=== PATIENT | female | born 1960 | race Caucasian/White ===

== ENCOUNTER → 2016-10-16 | Outpatient (CLI) | payer OTHER ==
[2015-02-01 10:44] VITALS: BP 128/77
[~2016-10-16] MED LIST: ALBU2.5V5 NEB; OMEP20CA9 PO; PROAIR HFA8.5 GM IH
== END | disposition home or self-care (01) ==
LOC: PF 09:32
PROVIDERS: ATTEND Otolaryngology
DX: J98.4 Other disorders of lung (principal)
CPT/HCPCS: 94060

== ENCOUNTER 2018-09-22 20:49 | Inpatient (IN) | payer OTHER ==
[~2018-09-22] VITALS: Ht 165.1 cm; Wt 49.5 kg
[2018-09-22 21:24] LABS: BASO % 1 % (0-3); EOS # 0.1 x10^3/uL (0.0-0.7); EOS % 1 % (0-3); HEMOGLOBIN 13.1 g/dL (12.0-15.5); LYMPH # 0.7 x10^3/uL (1.0-4.8); LYMPH % 11 % (24-48); MEAN CORPUSCULAR HEMOGLOBIN 31 pg (25-35); MEAN CORPUSCULAR HGB CONC 32 g/dL (31-37); MEAN CORPUSCULAR VOLUME 97 fL (79-100); MONO # 0.5 x10^3/uL (0.0-1.1); MONO % 7 % (0-9); NEUT # 5.1 x10^3uL (1.8-7.7); NEUT % 80 % (31-73); PLATELET COUNT 165 x10^3/uL (140-400); RED BLOOD COUNT 4.24 x10^6/uL (3.50-5.40); RED CELL DISTRIBUTION WIDTH 15.7 % (11.5-14.5); WHITE BLOOD COUNT 6.4 x10^3/uL (4.0-11.0)
[2018-09-22 21:42] LABS: PCO2 ABG 143 mmHg (35-46)
[2018-09-22 21:43] LABS: BASE EXCESS ABG 21 mmol/L (-3-3); FIO2 ABG 40; HCO3 ABG 56 mmol/L (21-28); PO2 ABG 54 mmHg (75-108); SAT O2 ABG 88 % (92-99)
[2018-09-22 21:44] LABS: CALCIUM 9.6 mg/dL (8.5-10.1); CREATININE 0.9 mg/dL (0.6-1.0); GFR 64.5; POTASSIUM 4.6 mmol/L (3.5-5.1)
[2018-09-22 21:55] LABS: ALBUMIN 3.8 g/dL (3.4-5.0); ALBUMIN/GLOBULIN RATIO 0.8 (1.0-1.7); TOTAL BILIRUBIN 0.6 mg/dL (0.2-1.0); TOTAL PROTEIN 8.4 g/dL (6.4-8.2)
[2018-09-22] MEDS ORDERED: ALBUTEROL SULFATE 2.5 MG/3 ML NEBU. CONT NEB ONE (22:00)
[2018-09-22] MEDS ORDERED: methylPREDNISolone SOD SUCC PF 125 MG/2 ML VIAL. IV ONE (22:00)
[2018-09-22] MEDS ORDERED: IPRATROPIUM BROMIDE 0.5 MG/2.5 ML NEBU. NEB ONE (22:00)
[2018-09-22] MEDS ORDERED: PROPOFOL 50 ML IV ONE (22:01)
[2018-09-22] MEDS ORDERED: VECURONIUM BOLUS 10 MG VIAL. IV ONE ×2 (22:07→22:45)
[2018-09-22] MEDS ORDERED: ETOMIDATE 20 MG/10 ML VIAL. IV ONE ×2 (22:07→22:45)
[2018-09-22 22:43] LABS: BILIRUBIN,URINE NEGATIVE (NEG); CLARITY,URINE CLEAR; COLOR,URINE YELLOW; NITRITE,URINE NEGATIVE (NEG); PROTEIN,URINE 30 mg/dL (NEG-TRACE); UROBILINOGEN,URINE 0.2 mg/dL (0.2 mg/dL)
[2018-09-22] MEDS ORDERED: PROPOFOL 100 ML IV PRN (22:45)
--- NOTE | 2018-09-22 22:48 | PHYS DOC ---
Past Medical History Past Medical History: Anxiety, COPD, Depression, GERD, Hypertension Past Surgical History: No Surgical History Additional Past Surgical Histo: UNABLE TO ASSESS Alcohol Use: Occasionally Drug Use: None Adult General Chief Complaint Chief Complaint: DYSPNEA/RESPIRATOY DISTRESS HPI HPI Patient is a 57-year-old female who presents with report of severe respiratory distress by EMS. Patient's O2 sat upon their arrival was 60% on room air. Patient arrived on nonrebreather mask with O2 sat of 97%. Patient was evaluated by your medical staff and blood work drawn an IV established. An ABG was obtained at this time and demonstrated markedly elevated PCO2 of greater than 140. Additional history is very limited due to patient's middle status. Review of Systems Review of Systems Constitutional: Denies fever [] Respiratory: Complains of cough and shortness of breath [] Cardiovascular: No additional information not addressed in HPI [] Neurologic: Positive mental status changes [] Unable to obtain full review of systems due to patient's mental status. Current Medications Current Medications Current Medications Medications (Trade) Dose Ordered Sig/Darling Start Time Stop Time Status Last Admin Dose Admin Albuterol Sulfate (Ventolin Neb Soln) 10 mg 1X ONCE 09/22/18 22:00 09/22/18 22:01 DC 09/22/18 21:36 10 MG Etomidate (Amidate) 20 mg STK-MED ONCE 09/22/18 22:07 09/22/18 22:08 DC Ipratropium [place] (Atrovent) 0.5 mg 1X ONCE 09/22/18 22:00 09/22/18 22:01 DC 09/22/18 21:36 0.5 MG Lorazepam (Ativan) 2 mg 1X ONCE 09/22/18 22:00 09/22/18 22:01 DC 09/22/18 21:38 2 MG Methylprednisolone Sodium Succinate (SOLU-Medrol 125MG VIAL) 125 mg 1X ONCE 09/22/18 22:00 09/22/18 22:01 DC 09/22/18 21:38 125 MG Propofol 50 ml @ As Directed STK-MED ONCE 09/22/18 22:01 09/22/18 22:03 DC Vecuronium [place] (Norcuron Bolus) 10 mg STK-MED ONCE 09/22/18 22:07 09/22/18 22:08 DC Allergies Allergies Allergies Coded Allergies Type Severity Reaction Last Updated Verified No Known Drug Allergies 02/01/15 No Physical Exam Physical Exam Constitutional: Patient in moderate respiratory distress distress, disoriented 3. [] HENT: Normocephalic, atraumatic, bilateral external ears normal, oropharynx dry , no oral exudates, nose normal. [] Eyes: PERRLA, EOMI, conjunctiva normal, no discharge. [] Neck: Normal range of motion, no tenderness, supple, no stridor. [] Cardiovascular: Tachycardic rate with regular rhythm[] Lungs & Thorax: Significant only reduced breath sounds are noted bilaterally with and Inspra 20 next 40 wheezes.[] Abdomen: Bowel sounds normal, soft, no tenderness, no masses, no pulsatile masses. [] Skin: Warm, dry, no erythema, no rash. [] Extremities: No tenderness, no cyanosis, no clubbing, ROM intact, no edema. [] Neurologic: Disoriented 3, no focal deficits noted. [] Current Patient Data Vital Signs Vital Signs Date Time Temp Pulse Resp B/P (MAP) Pulse Ox O2 Delivery O2 Flow Rate FiO2 09/22/18 22:05 93 Ventilator 09/22/18 20:50 97.7 98 20 99/72 (81) 4.0 97.7 Lab Values Laboratory Tests Test 09/22/18 21:10 09/22/18 21:16 White Blood Count 6.4 x10^3/uL (4.0-11.0) Red Blood Count 4.24 x10^6/uL (3.50-5.40) Hemoglobin 13.1 g/dL (12.0-15.5) Hematocrit 41.0 % (36.0-47.0) Mean Corpuscular Volume 97 fL (79-100) Mean Corpuscular Hemoglobin 31 pg (25-35) Mean Corpuscular Hemoglobin Concent 32 g/dL (31-37) Red Cell Distribution Width 15.7 % (11.5-14.5) H Platelet Count 165 x10^3/uL (140-400) Neutrophils (%) (Auto) 80 % (31-73) H Lymphocytes (%) (Auto) 11 % (24-48) L Monocytes (%) (Auto) 7 % (0-9) Eosinophils (%) (Auto) 1 % (0-3) Basophils (%) (Auto) 1 % (0-3) Neutrophils # (Auto) 5.1 x10^3uL (1.8-7.7) Lymphocytes # (Auto) 0.7 x10^3/uL (1.0-4.8) L Monocytes # (Auto) 0.5 x10^3/uL (0.0-1.1) Eosinophils # (Auto) 0.1 x10^3/uL (0.0-0.7) Basophils # (Auto) 0.0 x10^3/uL (0.0-0.2) Sodium Level 138 mmol/L (136-145) Potassium Level 4.6 mmol/L (3.5-5.1) Chloride Level 89 mmol/L (98-107) L Carbon Dioxide Level 44 mmol/L (21-32) H Anion Gap 5 (6-14) L Blood Urea Nitrogen 21 mg/dL (7-20) H Creatinine 0.9 mg/dL (0.6-1.0) Estimated GFR (Cockcroft-Gault) 64.5 BUN/Creatinine Ratio 23 (6-20) H Glucose Level 144 mg/dL (70-99) H Lactic Acid Level 3.6 mmol/L (0.4-2.0) H Calcium Level 9.6 mg/dL (8.5-10.1) Total Bilirubin 0.6 mg/dL (0.2-1.0) Aspartate Amino Transferase (AST) 21 U/L (15-37) Alanine Aminotransferase (ALT) 10 U/L (14-59) L Alkaline Phosphatase 79 U/L (46-116) Troponin I Quantitative < 0.017 ng/mL (0.000-0.055) ID-Azg-T-Type Natriuretic Peptide 393 pg/mL (0-124) H Total Protein 8.4 g/dL (6.4-8.2) H Albumin 3.8 g/dL (3.4-5.0) Albumin/Globulin Ratio 0.8 (1.0-1.7) L O2 Saturation 88 % (92-99) L Arterial Blood pH 7.21 (7.35-7.45) L Arterial Blood pCO2 at Patient Temp 143 mmHg (35-46) *H Arterial Blood pO2 at Patient Temp 54 mmHg (75-108) L Arterial Blood HCO3 56 mmol/L (21-28) H Arterial Blood Base Excess 21 mmol/L (-3-3) H FiO2 40 Laboratory Tests 09/22/18 21:10 Laboratory Tests 09/22/18 21:10 EKG EKG [] Radiology/Procedures Radiology/Procedures [] Impressions: Chest x-ray demonstrates findings consistent with COPD ET tube is in good position. Course & Med Decision Making Course & Med Decision Making Pertinent Labs and Imaging studies reviewed. (See chart for details) Patient moved to room upon arrival was evaluated by your medical staff after which blood work was drawn an IV established. An ABG was obtained at this time that demonstrated markedly elevated PCO2. At this point patient was initiated on BiPAP. Patient was maintained on BiPAP for approximately 30 minutes and patient was failing to improve. Patient's O2 sat was noted to be 77% on 100% of O2 while on BiPAP. At this point it was deemed necessary for intubation. Unable to obtain verbal consent from patient due to patient's mental status. Endotracheal Intubation by me: Pre assessment performed. See preceding note for details. Pre-oxygenation performed with 100% oxygen. Patient given IV etomidate 20 mg and IV vecuronium 10 mg prior to intubation. RSI: Performed w/o complication or hypoxic events. Medications as ordered. Blade: #3 glide scope ET Tube: 7.5 cm Depth: 22 cm at the lip Intubation confirmed by colorimetric CO2, equal breath sounds, quiet over the stomach. Chest X-ray 1V Interpreted by me: cm above the milagros ET tube. Normal soft tissue, No pneumothorax. A total of 40 minutes of critical care time was spent on this patient exclusive of separately billable procedures and was inclusive of direct [id number] patient care, ordering and reviewing of both laboratory and radiologic studies, discussion of patient's case with oracle distribution consultant, and finally on documentation of this patient's medical record. Dragon Disclaimer Dragon Disclaimer This electronic medical record was generated, in whole or in part, using a voice recognition dictation system. Departure Departure Impression: Primary Impression: Acute respiratory failure with hypercapnia Additional Impression: COPD with acute exacerbation Disposition: 09 ADMITTED INPATIENT Admitting Physician: Bernice Tavares, Other (Dr. Irma Nash) Condition: CRITICAL Referrals: KAUSHAL BROCK (PCP) Problem Qualifiers JUDSON NASH Jr. DO Sep 22, 2018 22:47
[2018-09-22 22:50] LABS: AMORPHOUS SEDIMENT,UR PRESENT /HPF; BACTERIA,URINE 0 /HPF (0-FEW); GRANULAR CASTS,URINE OCCASIONAL /HPF; SQUAMOUS EPITHELIAL CELL,UR FEW /LPF
[2018-09-22 22:54] LABS: INFLUENZA A PATIENT NEGATIVE (NEGATIVE); INFLUENZA B PATIENT NEGATIVE (NEGATIVE)
[2018-09-22 23:40] VITALS: BP 85/62
[2018-09-22 23:45] VITALS: BP 118/94
--- NOTE | 2018-09-22 23:56 | RAD ---
Indication:sob TECHNIQUE:Portable AP chest X-ray COMPARISON:02/01/2015 FINDINGS: Lungs are hyperinflated with flattening of diaphragm. Coarse interstitial opacities are seen. Heart is normal in size. No focal consolidation. No pneumothorax or pleural effusion. Visualized bony thorax is within normal limits. IMPRESSION: Findings of COPD with superimposed acute bronchitis. Electronically signed by: Matti Katz DO (09/22/2018 11:53 PM) [facility]
[2018-09-23] VITALS (30 sets, daily range): BP systolic 52–217; BP diastolic 31–149
[2018-09-23] MEDS ORDERED: OMEP40CA5 PO (01:13)
[2018-09-23] MEDS ORDERED: MIRT15TA3 PO (01:13)
[2018-09-23] MEDS ORDERED: METO-239 PO (01:13)
[2018-09-23] MEDS ORDERED: ESCITALOPRAM OXA5 M1 PO (01:13)
[2018-09-23] MEDS ORDERED: IV NORMAL SALINE 1000ML BAG 1,000 ML IV ONE ×2 (01:30)
[2018-09-23] MEDS: MIDAZOLAM 100mg/100ml NS BAG 100 ML IV PRN ×2 (01:38→17:47)
[2018-09-23] MEDS: ENOXAPARIN 30 MG/0.3 ML SYRINGE. SQ SCH ×2 (01:43→21:06)
[2018-09-23] MEDS ORDERED: IV NORMAL SALINE 250ML 250 ML IV ONE (01:45)
[2018-09-23] MEDS: IV NORMAL SALINE 1000ML BAG 1,000 ML IV SCH ×2 (03:09→12:49)
[2018-09-23] MEDS ORDERED: PIP/TAZO PER PHARMACY MC PRN (03:30)
[2018-09-23] MEDS ORDERED: VANCOMYCIN 1 GM in IV NORMAL SALINE 250ML 250 ML IV ONE (04:00)
[2018-09-23] MEDS ORDERED: IPRATRPIUM/ALBUTEROL 0.5/2.5MG 3 ML NEBU. NEB ONE (04:30)
[2018-09-23] MEDS: VANCOMYCIN PER PHARMACY MC PRN ×2 (05:15→10:33)
[2018-09-23] MEDS: PIPERACILLIN/TAZOBACTAM 2.25 GM in IV NORMAL SALINE 50ML 50 ML IV SCH ×3 (05:33→16:59)
--- NOTE | 2018-09-23 06:19 | EKG ---
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
[2018-09-23 07:36] LABS: BASO % 0 % (0-3); EOS % 0 % (0-3); HEMATOCRIT 32.9 % (36.0-47.0); HEMOGLOBIN 10.6 g/dL (12.0-15.5); LYMPH # 0.7 x10^3/uL (1.0-4.8); LYMPH % 16 % (24-48); MEAN CORPUSCULAR HEMOGLOBIN 31 pg (25-35); MEAN CORPUSCULAR HGB CONC 32 g/dL (31-37); MEAN CORPUSCULAR VOLUME 95 fL (79-100); MONO # 0.1 x10^3/uL (0.0-1.1); MONO % 3 % (0-9); NEUT # 3.4 x10^3uL (1.8-7.7); NEUT % 80 % (31-73); PLATELET COUNT 131 x10^3/uL (140-400); RED BLOOD COUNT 3.45 x10^6/uL (3.50-5.40); RED CELL DISTRIBUTION WIDTH 15.7 % (11.5-14.5); WHITE BLOOD COUNT 4.3 x10^3/uL (4.0-11.0)
[2018-09-23 07:45] LABS: CALCIUM 8.6 mg/dL (8.5-10.1); GFR 57.1; POTASSIUM 4.7 mmol/L (3.5-5.1)
--- NOTE | 2018-09-23 08:37 | PDOC1 ---
History and Physical Date of Admission Date of Admission DATE: 09/23/18 TIME: 08:31 Identification/Chief Complaint Chief Complaint Altered mental status Source Source: Caregiver, Chart review History of Present Illness History of Present Illness Pt is intubated and no family at bedside hence history mostly via chart. Patient is a 57 year old female who most likely is a heavy smoker, came in via EMS confused, low GCS, satting 60%, with little improvement on nonrebreather mask. ABG initially showed a CO2 of 250. Initially tried on BiPAP but not improving significantly hence intubated at emergency room I'm seeing at the ICU intubated on sedation, no family at bedside, repeat ABG this morning still shows a CO2 of 150. Chest x-ray shows COPD findings but no acute infiltrates As per staff, her clothes smelled of cigarettes Her BMI is only 13. There are no other records of her here Adeq UO on FC SOme relative hypotension, but MAP always > 60 Past Medical History Pulmonary: Bronchitis, COPD Past Surgical History Past Surgical History: Other (unknown surgical history) Family History Family History: Family History Unknown Social History Smoke: 2 packs per day ALCOHOL: none Drugs: None Current Problem List Problem List Problems Medical Problems: (1) Acute respiratory failure with hypercapnia Status: Acute (2) COPD with acute exacerbation Status: Acute Current Medications Current Medications Current Medications Methylprednisolone Sodium Succinate (SOLU-Medrol 125MG VIAL) 125 mg 1X ONCE IV Last administered on 09/22/18at 21:38; Start 09/22/18 at 22:00; Stop at 22:01; Status DC Albuterol Sulfate (Ventolin Neb Soln) 10 mg 1X ONCE CONT NEB Last administered on 09/22/18at 21:36; Start 09/22/18 at 22:00; Stop 09/22/18 at 22 :01; Status DC Ipratropium [place] (Atrovent) 0.5 mg 1X ONCE NEB Last administered on at 21:36; Start 09/22/18 at 22:00; Stop 09/22/18 at 22:01; Status DC Lorazepam (Ativan) 2 mg 1X ONCE IV Last administered on 09/22/18at 21:38; Start 09/22/18 at 22:00; Stop 09/22/18 at 22:01; Status DC Propofol 50 ml @ As Directed STK-MED ONCE IV ; Start 09/22/18 at 22:01; Stop 09/22/18 at 22:03; Status DC Etomidate (Amidate) 20 mg STK-MED ONCE IV ; Start 09/22/18 at 22:07; Stop 07/31 at 22:08; Status DC Vecuronium [place] (Norcuron Bolus) 10 mg STK-MED ONCE IV ; Start 09/22/18 at 22:07; Stop 09/22/18 at 22:08; Status DC Etomidate (Amidate) 20 mg 1X ONCE IV Last administered on 09/22/18at 22:05; Start 09/22/18 at 22:45; Stop 09/22/18 at 22:46; Status DC Vecuronium [place] (Norcuron Bolus) 10 mg 1X ONCE IV Last administered on 07/31at 22:05; Start 09/22/18 at 22:45; Stop 09/22/18 at 22:46; Status DC Propofol 100 ml @ 0 mls/hr CONT PRN IV SEE PROTOCOL Last administered on at 22:10; Start 09/22/18 at 22:45 Sodium Chloride 1,000 ml @ 1,000 mls/hr 1X ONCE IV Last administered on 09/23at 01:38; Start 09/23/18 at 01:30; Stop 09/23/18 at 02:29; Status DC Sodium Chloride 1,000 ml @ 1,000 mls/hr 1X ONCE IV Last administered on 09/23at 02:08; Start 09/23/18 at 01:30; Stop 09/23/18 at 02:29; Status DC Sodium Chloride 1,000 ml @ 150 mls/hr Q6H40M IV Last administered on at 03:09; Start 09/23/18 at 02:30 Enoxaparin Sodium (Lovenox Per Pharmacy Prophylaxis Dosing) 1 each PRN DAILY PRN MC SEE COMMENTS; Start 09/23/18 at 01:30; Stop 09/23/18 at 07:24; Status DC Midazolam HCl 100 ml @ 5 mls/hr CONT PRN IV SEE I/O RECORD Last administered on 09/23/18at 01:38; Start 09/23/18 at 01:30 Enoxaparin Sodium (Lovenox 30mg Syringe) 30 mg QHS SQ Last administered on 08/31at 01:43; Start 09/23/18 at 01:30 Sodium Chloride 250 ml @ 250 mls/hr 1X ONCE IV Last administered on at 00:30; Start 09/23/18 at 01:45; Stop 09/23/18 at 02:44; Status DC Piperacillin Sod/ Tazobactam Sod (Zosyn Per Pharmacy) 1 each PRN DAILY PRN MC SEE COMMENTS; Start 09/23/18 at 03:30; Stop 09/23/18 at 07:25; Status DC Vancomycin HCl (Vanco Per Pharmacy) 1 each PRN DAILY PRN MC SEE COMMENTS Last administered on 09/23/18at 05:15; Start 09/23/18 at 03:30 Vancomycin HCl 1 gm/Sodium Chloride 250 ml @ 250 mls/hr 1X ONCE IV Last administered on 09/23/18at 03:41; Start 09/23/18 at 04:00; Stop 09/23/18 at 04 :59; Status DC Piperacillin Sod/ Tazobactam Sod 2.25 gm/Sodium Chloride 50 ml @ 100 mls/hr Q6HRS IV Last administered on 09/23/18at 05:33; Start 09/23/18 at 05:00 Vancomycin HCl 500 mg/Dextrose 100 ml @ 100 mls/hr Q24H IV ; Start 09/24/18 at 04:00 Vancomycin HCl (Vancomycin Trough Level) 1 each 1X ONCE MC ; Start 09/25/18 at 03:30; Stop 09/25/18 at 03:31 Albuterol/ Ipratropium (Duoneb) 3 ml 1X ONCE NEB Last administered on at 04:20; Start 09/23/18 at 04:30; Stop 09/23/18 at 04:31; Status DC Pantoprazole Sodium (PROTONIX VIAL for IV PUSH) 40 mg DAILYAC IVP ; Start 09/23 at 07:30 Enoxaparin Sodium (Lovenox 40mg Syringe) 40 mg Q24H SQ ; Start 09/24/18 at 08: 00; Status Cancel Active Scripts Active Reported Mirtazapine 15 Mg Tablet 15 Mg PO DAILY Escitalopram Oxalate 5 Mg Tablet 5 Mg PO DAILY Metoprolol Succinate ( Xl ) (Metoprolol Succinate) 25 Mg Tab.er.24h 1 Tab PO DAILY Omeprazole 40 Mg Capsule. 40 Mg PO DAILY Albuterol Sulfate Neb Soln (Albuterol Sulfate) 2.5 Mg/3 Ml Vial.neb 2.5 Mg NEB PRN Proair Hfa Inhaler (Albuterol Sulfate) 8.5 Gm Hfa.aer.ad 2 Puff IH PRN Q4-6HRS PRN Omeprazole 20 Mg Capsule. 1 Cap PO DAILY Allergies Allergies: Coded Allergies: No Known Drug Allergies (Unverified , 02/01/15) ROS Review of System Intubated sedated Physical Exam General: No acute distress, Other (undernourished, minimal subcutaneous tissue , BMI of 13) Lungs: Normal air movement, Other (symmettrical chest expansion, equal air entry, no crackles) Heart: S1S2 Cardiovascular: S1 Breasts: Normal Abdomen: Normal bowel sounds, Soft, No tenderness, No hepatosplenomegaly, No masses Rectal Exam: not examined PELVIC: Nml ext genitalia Extremities: No clubbing, No cyanosis, No edema, Normal pulses, No tenderness/ swelling Skin: No rashes, No breakdown, No significant lesion Neuro: Normal gait, Normal speech, Strength at 5/5 X4 ext, Normal tone, Sensation intact, Cranial nerves 3-12 NL, Reflexes 2+ Psych/Mental Status: Mental status NL, Mood NL Vitals Vitals Vital Signs Date Time Temp Pulse Resp B/P (MAP) Pulse Ox O2 Delivery O2 Flow Rate FiO2 09/23/18 07:20 100 Ventilator 09/23/18 06:00 100.3 108 23 92/57 (69) 100.3 09/22/18 20:50 4.0 Labs Labs Laboratory Tests Test 09/22/18 21:10 09/22/18 21:16 09/22/18 21:50 09/22/18 22:35 White Blood Count 6.4 x10^3/uL (4.0-11.0) Red Blood Count 4.24 x10^6/uL (3.50-5.40) Hemoglobin 13.1 g/dL (12.0-15.5) Hematocrit 41.0 % (36.0-47.0) Mean Corpuscular Volume 97 fL (79-100) Mean Corpuscular Hemoglobin 31 pg (25-35) Mean Corpuscular Hemoglobin Concent 32 g/dL (31-37) Red Cell Distribution Width 15.7 % (11.5-14.5) Platelet Count 165 x10^3/uL (140-400) Neutrophils (%) (Auto) 80 % (31-73) Lymphocytes (%) (Auto) 11 % (24-48) Monocytes (%) (Auto) 7 % (0-9) Eosinophils (%) (Auto) 1 % (0-3) Basophils (%) (Auto) 1 % (0-3) Neutrophils # (Auto) 5.1 x10^3uL (1.8-7.7) Lymphocytes # (Auto) 0.7 x10^3/uL (1.0-4.8) Monocytes # (Auto) 0.5 x10^3/uL (0.0-1.1) Eosinophils # (Auto) 0.1 x10^3/uL (0.0-0.7) Basophils # (Auto) 0.0 x10^3/uL (0.0-0.2) Sodium Level 138 mmol/L (136-145) Potassium Level 4.6 mmol/L (3.5-5.1) Chloride Level 89 mmol/L (98-107) Carbon Dioxide Level 44 mmol/L (21-32) Anion Gap 5 (6-14) Blood Urea Nitrogen 21 mg/dL (7-20) Creatinine 0.9 mg/dL (0.6-1.0) Estimated GFR (Cockcroft-Gault) 64.5 BUN/Creatinine Ratio 23 (6-20) Glucose Level 144 mg/dL (70-99) Lactic Acid Level 3.6 mmol/L (0.4-2.0) Calcium Level 9.6 mg/dL (8.5-10.1) Total Bilirubin 0.6 mg/dL (0.2-1.0) Aspartate Amino Transf (AST/SGOT) 21 U/L (15-37) Alanine Aminotransferase (ALT/SGPT) 10 U/L (14-59) Alkaline Phosphatase 79 U/L (46-116) Troponin I Quantitative < 0.017 ng/mL (0.000-0.055) AG-Mzn-B-Type Natriuretic Peptide 393 pg/mL (0-124) Total Protein 8.4 g/dL (6.4-8.2) Albumin 3.8 g/dL (3.4-5.0) Albumin/Globulin Ratio 0.8 (1.0-1.7) O2 Saturation 88 % (92-99) Arterial Blood pH 7.21 (7.35-7.45) Arterial Blood pCO2 at Patient Temp 143 mmHg (35-46) Arterial Blood pO2 at Patient Temp 54 mmHg (75-108) Arterial Blood HCO3 56 mmol/L (21-28) Arterial Blood Base Excess 21 mmol/L (-3-3) FiO2 40 Influenza Type A Antigen Negative (NEGATIVE) Influenza Type B Antigen Negative (NEGATIVE) Urine Collection Type Unknown Urine Color Yellow Urine Clarity Clear Urine pH 6.0 Urine Specific [place] 1.015 Urine Protein 30 mg/dL (NEG-TRACE) Urine Glucose (UA) Negative mg/dL (NEG) Urine Ketones (Stick) 40 mg/dL (NEG) Urine Blood Negative (NEG) Urine Nitrite Negative (NEG) Urine Bilirubin Negative (NEG) Urine Urobilinogen Dipstick 0.2 mg/dL (0.2 mg/dL) Urine Leukocyte Esterase Negative (NEG) Urine RBC 3-5 /HPF (0-2) Urine WBC 1-4 /HPF (0-4) Urine Squamous Epithelial Cells Few /LPF Urine Amorphous Sediment Present /HPF Urine Bacteria 0 /HPF (0-FEW) Urine Granular Casts Occasional /HPF Urine Mucus Slight /LPF Test 09/23/18 01:40 09/23/18 06:27 Lactic Acid Level 5.0 mmol/L (0.4-2.0) 3.0 mmol/L (0.4-2.0) White Blood Count 4.3 x10^3/uL (4.0-11.0) Red Blood Count 3.45 x10^6/uL (3.50-5.40) Hemoglobin 10.6 g/dL (12.0-15.5) Hematocrit 32.9 % (36.0-47.0) Mean Corpuscular Volume 95 fL (79-100) Mean Corpuscular Hemoglobin 31 pg (25-35) Mean Corpuscular Hemoglobin Concent 32 g/dL (31-37) Red Cell Distribution Width 15.7 % (11.5-14.5) Platelet Count 131 x10^3/uL (140-400) Neutrophils (%) (Auto) 80 % (31-73) Lymphocytes (%) (Auto) 16 % (24-48) Monocytes (%) (Auto) 3 % (0-9) Eosinophils (%) (Auto) 0 % (0-3) Basophils (%) (Auto) 0 % (0-3) Neutrophils # (Auto) 3.4 x10^3uL (1.8-7.7) Lymphocytes # (Auto) 0.7 x10^3/uL (1.0-4.8) Monocytes # (Auto) 0.1 x10^3/uL (0.0-1.1) Eosinophils # (Auto) 0.0 x10^3/uL (0.0-0.7) Basophils # (Auto) 0.0 x10^3/uL (0.0-0.2) Sodium Level 140 mmol/L (136-145) Potassium Level 4.7 mmol/L (3.5-5.1) Chloride Level 94 mmol/L (98-107) Carbon Dioxide Level 33 mmol/L (21-32) Anion Gap 13 (6-14) Blood Urea Nitrogen 25 mg/dL (7-20) Creatinine 1.0 mg/dL (0.6-1.0) Estimated GFR (Cockcroft-Gault) 57.1 Glucose Level 121 mg/dL (70-99) Calcium Level 8.6 mg/dL (8.5-10.1) Laboratory Tests Test 09/22/18 21:10 09/22/18 21:16 09/22/18 21:50 09/22/18 22:35 White Blood Count 6.4 x10^3/uL (4.0-11.0) Red Blood Count 4.24 x10^6/uL (3.50-5.40) Hemoglobin 13.1 g/dL (12.0-15.5) Hematocrit 41.0 % (36.0-47.0) Mean Corpuscular Volume 97 fL (79-100) Mean Corpuscular Hemoglobin 31 pg (25-35) Mean Corpuscular Hemoglobin Concent 32 g/dL (31-37) Red Cell Distribution Width 15.7 % (11.5-14.5) Platelet Count 165 x10^3/uL (140-400) Neutrophils (%) (Auto) 80 % (31-73) Lymphocytes (%) (Auto) 11 % (24-48) Monocytes (%) (Auto) 7 % (0-9) Eosinophils (%) (Auto) 1 % (0-3) Basophils (%) (Auto) 1 % (0-3) Neutrophils # (Auto) 5.1 x10^3uL (1.8-7.7) Lymphocytes # (Auto) 0.7 x10^3/uL (1.0-4.8) Monocytes # (Auto) 0.5 x10^3/uL (0.0-1.1) Eosinophils # (Auto) 0.1 x10^3/uL (0.0-0.7) Basophils # (Auto) 0.0 x10^3/uL (0.0-0.2) Sodium Level 138 mmol/L (136-145) Potassium Level 4.6 mmol/L (3.5-5.1) Chloride Level 89 mmol/L (98-107) Carbon Dioxide Level 44 mmol/L (21-32) Anion Gap 5 (6-14) Blood Urea Nitrogen 21 mg/dL (7-20) Creatinine 0.9 mg/dL (0.6-1.0) Estimated GFR (Cockcroft-Gault) 64.5 BUN/Creatinine Ratio 23 (6-20) Glucose Level 144 mg/dL (70-99) Lactic Acid Level 3.6 mmol/L (0.4-2.0) Calcium Level 9.6 mg/dL (8.5-10.1) Total Bilirubin 0.6 mg/dL (0.2-1.0) Aspartate Amino Transf (AST/SGOT) 21 U/L (15-37) Alanine Aminotransferase (ALT/SGPT) 10 U/L (14-59) Alkaline Phosphatase 79 U/L (46-116) Troponin I Quantitative < 0.017 ng/mL (0.000-0.055) AT-Vbz-I-Type Natriuretic Peptide 393 pg/mL (0-124) Total Protein 8.4 g/dL (6.4-8.2) Albumin 3.8 g/dL (3.4-5.0) Albumin/Globulin Ratio 0.8 (1.0-1.7) O2 Saturation 88 % (92-99) Arterial Blood pH 7.21 (7.35-7.45) Arterial Blood pCO2 at Patient Temp 143 mmHg (35-46) Arterial Blood pO2 at Patient Temp 54 mmHg (75-108) Arterial Blood HCO3 56 mmol/L (21-28) Arterial Blood Base Excess 21 mmol/L (-3-3) FiO2 40 Influenza Type A Antigen Negative (NEGATIVE) Influenza Type B Antigen Negative (NEGATIVE) Urine Collection Type Unknown Urine Color Yellow Urine Clarity Clear Urine pH 6.0 Urine Specific [place] 1.015 Urine Protein 30 mg/dL (NEG-TRACE) Urine Glucose (UA) Negative mg/dL (NEG) Urine Ketones (Stick) 40 mg/dL (NEG) Urine Blood Negative (NEG) Urine Nitrite Negative (NEG) Urine Bilirubin Negative (NEG) Urine Urobilinogen Dipstick 0.2 mg/dL (0.2 mg/dL) Urine Leukocyte Esterase Negative (NEG) Urine RBC 3-5 /HPF (0-2) Urine WBC 1-4 /HPF (0-4) Urine Squamous Epithelial Cells Few /LPF Urine Amorphous Sediment Present /HPF Urine Bacteria 0 /HPF (0-FEW) Urine Granular Casts Occasional /HPF Urine Mucus Slight /LPF Test 09/23/18 01:40 09/23/18 06:27 Lactic Acid Level 5.0 mmol/L (0.4-2.0) 3.0 mmol/L (0.4-2.0) White Blood Count 4.3 x10^3/uL (4.0-11.0) Red Blood Count 3.45 x10^6/uL (3.50-5.40) Hemoglobin 10.6 g/dL (12.0-15.5) Hematocrit 32.9 % (36.0-47.0) Mean Corpuscular Volume 95 fL (79-100) Mean Corpuscular Hemoglobin 31 pg (25-35) Mean Corpuscular Hemoglobin Concent 32 g/dL (31-37) Red Cell Distribution Width 15.7 % (11.5-14.5) Platelet Count 131 x10^3/uL (140-400) Neutrophils (%) (Auto) 80 % (31-73) Lymphocytes (%) (Auto) 16 % (24-48) Monocytes (%) (Auto) 3 % (0-9) Eosinophils (%) (Auto) 0 % (0-3) Basophils (%) (Auto) 0 % (0-3) Neutrophils # (Auto) 3.4 x10^3uL (1.8-7.7) Lymphocytes # (Auto) 0.7 x10^3/uL (1.0-4.8) Monocytes # (Auto) 0.1 x10^3/uL (0.0-1.1) Eosinophils # (Auto) 0.0 x10^3/uL (0.0-0.7) Basophils # (Auto) 0.0 x10^3/uL (0.0-0.2) Sodium Level 140 mmol/L (136-145) Potassium Level 4.7 mmol/L (3.5-5.1) Chloride Level 94 mmol/L (98-107) Carbon Dioxide Level 33 mmol/L (21-32) Anion Gap 13 (6-14) Blood Urea Nitrogen 25 mg/dL (7-20) Creatinine 1.0 mg/dL (0.6-1.0) Estimated GFR (Cockcroft-Gault) 57.1 Glucose Level 121 mg/dL (70-99) Calcium Level 8.6 mg/dL (8.5-10.1) VTE Prophylaxis Ordered VTE Prophylaxis Devices: Yes VTE Pharmacological Prophylaxi: Yes Assessment/Plan Assessment/Plan Severe hypercapnic/hypoxic respiratory failure, failed an IPPV hence on IPPV Heavy smoker Undernourished, possibly cachexia even BMI 13 Temperatures, sepsis with no organ dysfunction Plan: Vent bundle, ICU care, pulmonary consult DVT and PPI ppx Tube feeds per nutrition-not ready to be extubated because of high CO2 hence we' ll start tube feeds Started on empiric Zosyn by ER, low-grade temperatures I did consult ID regarding this Discussed with [employer] Overnight physician ordered a CT chest and CT head cc 35 minutes ROLY EDMOND MD Sep 23, 2018 08:37
--- NOTE | 2018-09-23 08:50 | PDOC ---
Infectious Disease Note Subjective: Subjective Pt seen and examined Vital Signs: Vital Signs Vital Signs Date Time Temp Pulse Resp B/P (MAP) Pulse Ox O2 Delivery O2 Flow Rate FiO2 09/23/18 07:20 100 Ventilator 09/23/18 06:00 100.3 108 23 92/57 (69) 100.3 09/22/18 20:50 4.0 Medications: Inpatient Meds: Current Medications Medications (Trade) Dose Ordered Sig/Darling Start Time Stop Time Status Last Admin Dose Admin Albuterol Sulfate (Ventolin Neb Soln) 10 mg 1X ONCE 09/22/18 22:00 09/22/18 22:01 DC 09/22/18 21:36 10 MG Albuterol/ Ipratropium (Duoneb) 3 ml 1X ONCE 09/23/18 04:30 09/23/18 04:31 DC 09/23/18 04:20 3 ML Enoxaparin Sodium (Lovenox 30mg Syringe) 30 mg QHS 09/23/18 01:30 09/23/18 01:43 30 MG Enoxaparin Sodium (Lovenox 40mg Syringe) 40 mg Q24H 09/24/18 08:00 Cancel Enoxaparin Sodium (Lovenox Per Pharmacy Prophylaxis Dosing) 1 each PRN DAILY PRN 09/23/18 01:30 09/23/18 07:24 DC Etomidate (Amidate) 20 mg 1X ONCE 09/22/18 22:45 09/22/18 22:46 DC 09/22/18 22:05 20 MG Ipratropium Ferris (Atrovent) 0.5 mg 1X ONCE 09/22/18 22:00 09/22/18 22:01 DC 09/22/18 21:36 0.5 MG Lorazepam (Ativan) 2 mg 1X ONCE 09/22/18 22:00 09/22/18 22:01 DC 09/22/18 21:38 2 MG Methylprednisolone Sodium Succinate (SOLU-Medrol 125MG VIAL) 125 mg 1X ONCE 09/22/18 22:00 09/22/18 22:01 DC 09/22/18 21:38 125 MG Midazolam HCl 100 ml @ 5 mls/hr CONT PRN 09/23/18 01:30 09/23/18 01:38 5 MLS/HR Pantoprazole Sodium (PROTONIX VIAL for IV PUSH) 40 mg DAILYAC 09/23/18 07:30 Piperacillin Sod/ Tazobactam Sod (Zosyn Per Pharmacy) 1 each PRN DAILY PRN 09/23/18 03:30 09/23/18 07:25 DC Piperacillin Sod/ Tazobactam Sod 2.25 gm/Sodium Chloride 50 ml @ 100 mls/hr Q6HRS 09/23/18 05:00 09/23/18 05:33 100 MLS/HR Propofol 100 ml @ 0 mls/hr CONT PRN 09/22/18 22:45 09/22/18 22:10 0.6 MLS/HR Sodium Chloride 250 ml @ 250 mls/hr 1X ONCE 09/23/18 01:45 09/23/18 02:44 DC 09/23/18 00:30 250 MLS/HR Vancomycin HCl (Vanco Per Pharmacy) 1 each PRN DAILY PRN 09/23/18 03:30 09/23/18 05:15 1 EACH Vancomycin HCl (Vancomycin Trough Level) 1 each 1X ONCE 09/25/18 03:30 09/25/18 03:31 Vancomycin HCl 500 mg/Dextrose 100 ml @ 100 mls/hr Q24H 09/24/18 04:00 Vancomycin HCl 1 gm/Sodium Chloride 250 ml @ 250 mls/hr 1X ONCE 09/23/18 04:00 09/23/18 04:59 DC 09/23/18 03:41 250 MLS/HR Vecuronium Ferris (Norcuron Bolus) 10 mg 1X ONCE 09/22/18 22:45 09/22/18 22:46 DC 09/22/18 22:05 10 MG Labs: Lab Laboratory Tests Test 09/22/18 21:10 09/22/18 21:16 09/22/18 21:50 09/22/18 22:35 White Blood Count 6.4 x10^3/uL (4.0-11.0) Red Blood Count 4.24 x10^6/uL (3.50-5.40) Hemoglobin 13.1 g/dL (12.0-15.5) Hematocrit 41.0 % (36.0-47.0) Mean Corpuscular Volume 97 fL (79-100) Mean Corpuscular Hemoglobin 31 pg (25-35) Mean Corpuscular Hemoglobin Concent 32 g/dL (31-37) Red Cell Distribution Width 15.7 % (11.5-14.5) Platelet Count 165 x10^3/uL (140-400) Neutrophils (%) (Auto) 80 % (31-73) Lymphocytes (%) (Auto) 11 % (24-48) Monocytes (%) (Auto) 7 % (0-9) Eosinophils (%) (Auto) 1 % (0-3) Basophils (%) (Auto) 1 % (0-3) Neutrophils # (Auto) 5.1 x10^3uL (1.8-7.7) Lymphocytes # (Auto) 0.7 x10^3/uL (1.0-4.8) Monocytes # (Auto) 0.5 x10^3/uL (0.0-1.1) Eosinophils # (Auto) 0.1 x10^3/uL (0.0-0.7) Basophils # (Auto) 0.0 x10^3/uL (0.0-0.2) Sodium Level 138 mmol/L (136-145) Potassium Level 4.6 mmol/L (3.5-5.1) Chloride Level 89 mmol/L (98-107) Carbon Dioxide Level 44 mmol/L (21-32) Anion Gap 5 (6-14) Blood Urea Nitrogen 21 mg/dL (7-20) Creatinine 0.9 mg/dL (0.6-1.0) Estimated GFR (Cockcroft-Gault) 64.5 BUN/Creatinine Ratio 23 (6-20) Glucose Level 144 mg/dL (70-99) Lactic Acid Level 3.6 mmol/L (0.4-2.0) Calcium Level 9.6 mg/dL (8.5-10.1) Total Bilirubin 0.6 mg/dL (0.2-1.0) Aspartate Amino Transf (AST/SGOT) 21 U/L (15-37) Alanine Aminotransferase (ALT/SGPT) 10 U/L (14-59) Alkaline Phosphatase 79 U/L (46-116) Troponin I Quantitative < 0.017 ng/mL (0.000-0.055) DW-Ghj-A-Type Natriuretic Peptide 393 pg/mL (0-124) Total Protein 8.4 g/dL (6.4-8.2) Albumin 3.8 g/dL (3.4-5.0) Albumin/Globulin Ratio 0.8 (1.0-1.7) O2 Saturation 88 % (92-99) Arterial Blood pH 7.21 (7.35-7.45) Arterial Blood pCO2 at Patient Temp 143 mmHg (35-46) Arterial Blood pO2 at Patient Temp 54 mmHg (75-108) Arterial Blood HCO3 56 mmol/L (21-28) Arterial Blood Base Excess 21 mmol/L (-3-3) FiO2 40 Influenza Type A Antigen Negative (NEGATIVE) Influenza Type B Antigen Negative (NEGATIVE) Urine Collection Type Unknown Urine Color Yellow Urine Clarity Clear Urine pH 6.0 Urine Specific Cotter 1.015 Urine Protein 30 mg/dL (NEG-TRACE) Urine Glucose (UA) Negative mg/dL (NEG) Urine Ketones (Stick) 40 mg/dL (NEG) Urine Blood Negative (NEG) Urine Nitrite Negative (NEG) Urine Bilirubin Negative (NEG) Urine Urobilinogen Dipstick 0.2 mg/dL (0.2 mg/dL) Urine Leukocyte Esterase Negative (NEG) Urine RBC 3-5 /HPF (0-2) Urine WBC 1-4 /HPF (0-4) Urine Squamous Epithelial Cells Few /LPF Urine Amorphous Sediment Present /HPF Urine Bacteria 0 /HPF (0-FEW) Urine Granular Casts Occasional /HPF Urine Mucus Slight /LPF Test 09/23/18 01:40 09/23/18 06:27 Lactic Acid Level 5.0 mmol/L (0.4-2.0) 3.0 mmol/L (0.4-2.0) White Blood Count 4.3 x10^3/uL (4.0-11.0) Red Blood Count 3.45 x10^6/uL (3.50-5.40) Hemoglobin 10.6 g/dL (12.0-15.5) Hematocrit 32.9 % (36.0-47.0) Mean Corpuscular Volume 95 fL (79-100) Mean Corpuscular Hemoglobin 31 pg (25-35) Mean Corpuscular Hemoglobin Concent 32 g/dL (31-37) Red Cell Distribution Width 15.7 % (11.5-14.5) Platelet Count 131 x10^3/uL (140-400) Neutrophils (%) (Auto) 80 % (31-73) Lymphocytes (%) (Auto) 16 % (24-48) Monocytes (%) (Auto) 3 % (0-9) Eosinophils (%) (Auto) 0 % (0-3) Basophils (%) (Auto) 0 % (0-3) Neutrophils # (Auto) 3.4 x10^3uL (1.8-7.7) Lymphocytes # (Auto) 0.7 x10^3/uL (1.0-4.8) Monocytes # (Auto) 0.1 x10^3/uL (0.0-1.1) Eosinophils # (Auto) 0.0 x10^3/uL (0.0-0.7) Basophils # (Auto) 0.0 x10^3/uL (0.0-0.2) Sodium Level 140 mmol/L (136-145) Potassium Level 4.7 mmol/L (3.5-5.1) Chloride Level 94 mmol/L (98-107) Carbon Dioxide Level 33 mmol/L (21-32) Anion Gap 13 (6-14) Blood Urea Nitrogen 25 mg/dL (7-20) Creatinine 1.0 mg/dL (0.6-1.0) Estimated GFR (Cockcroft-Gault) 57.1 Glucose Level 121 mg/dL (70-99) Calcium Level 8.6 mg/dL (8.5-10.1) Objective: Assessment: Fever Acute resp failure s/p intubation Anemia/thrombocytopenia Plan: Plan of Care cont vanc/zosyn rvp not available at this hosp empiric tamiflu cont supportive care [phone] Thank you EMPERATRIZ FOWLER MD Sep 23, 2018 08:50
--- NOTE | 2018-09-23 08:57 | RAD ---
PORTABLE CHEST 1V Clinical Indication: chest pain x tonight Comparison: AP chest, same day 6 hours Findings: Endotracheal tube tip is just the level of the aortic arch. Enteric tube courses into the stomach. Cardiac size is normal. Lungs are hyperexpanded, unchanged. No focal airspace disease. Coarse interstitial markings. No pneumothorax or pleural effusion. IMPRESSION: 1. Life support devices in appropriate position. 2. COPD. Electronically signed by: Franco Diaz MD (09/23/2018 8:53 AM) [id number]
[2018-09-23] MEDS ORDERED: OSELTAMIVIR 30 MG/5 ML ORAL.SUSP. NG SCH (09:00)
--- NOTE | 2018-09-23 09:26 | RAD ---
PQRS Compliance Statement: One or more of the following individualized dose reduction techniques were utilized for this examination: 1. Automated exposure control 2. Adjustment of the mA and/or kV according to patient size 3. Use of iterative reconstruction technique CT HEAD WITHOUT CONTRAST History: AMS Comparison: None. Procedure: Axial images are obtained of the head from the skull base through the vertex without IV contrast. Findings: There is hypoattenuation in the bilateral inferior frontal lobes, significantly more extensive on the left than on the right. There is no appreciable volume loss. The ventricles and sulci are normal for the patient's age. No mass-effect, midline shift, acute hemorrhage, extra-axial fluid collection is identified. Basilar cisterns are patent. Bone windows demonstrate no acute calvarial abnormality. The visualized paranasal sinuses are clear. Bilateral mastoid air cells are mostly opacified bilaterally. IMPRESSION: There is bilateral inferior frontal lobe hypoattenuation, left worse than right. There is no appreciable volume loss. Considerations include subacute contusion or infarct or nonspecific cerebral edema. If diagnosis is not known recommend MR brain for further evaluation. Electronically signed by: Franco Diaz MD (09/23/2018 9:22 AM) [id number]
--- NOTE | 2018-09-23 10:00 | CONS ---
DATE OF CONSULTATION: 09/23/2018 REFERRING PHYSICIAN: Dr. Tavares. REASON FOR CONSULTATION: Fever. HISTORY OF PRESENT ILLNESS: A 57-year-old female brought in by EMS to [facility] ER for severe respiratory distress. Upon arrival, the patient was found to be hypoxic on room air. The patient was placed on nonrebreather with oxygen saturation going up to 97%. ABG showed elevated pCO2 of greater than 140. The patient had altered mental status, was intubated. The patient required IV fluid bolus, also was given Solu-Medrol 125 mg x 1. Chest x-ray was done, which showed changes of COPD with bronchitis. The patient was given empiric vancomycin and Zosyn. Blood cultures were done. MRSA PCR was done. The patient was admitted to ICU. The patient required further IV bolus earlier this morning. The patient was febrile at 101 in the ER. Currently, temperature is 100.3. Her blood pressure is running around 92/57. She is awaiting a CT of the chest. The patient was found on the floor by her relatives who were visiting her yesterday and was disoriented. White count was 6.4, this morning is 4.3; hemoglobin of 10.6; platelets of 131. Lactate was high at 5.0, this morning is 3.0. PCO2 last night was around 143. D-dimer is 1.29. UA negative. Influenza screen negative. PAST MEDICAL HISTORY: Bronchitis, COPD. PAST SURGICAL HISTORY: Not known. FAMILY HISTORY: Not known. SOCIAL HISTORY: Smoker. No ETOH, no drug use. Lives at home. CURRENT MEDICATIONS: Methylprednisolone one time, IV vancomycin p.r.n., Zosyn, albuterol, pantoprazole, enoxaparin, vecuronium, propofol, midazolam p.r.n. ALLERGIES: No known drug allergies. REVIEW OF SYSTEMS: Intubated and sedated. PHYSICAL EXAMINATION: VITAL SIGNS: Temperature 100.3, T-max 101.6, pulse 108, respiratory rate 23, blood pressure 92/57, ventilated, FiO2 100%. GENERAL: A thin, cachectic, intubated female. HEENT: OG tube in place, intubated, no icterus. Pupils equal, reactive. No thrush. NECK: Supple. LUNGS: Decreased breath sounds at bases, otherwise clear. HEART: S1, S2, tachycardia. ABDOMEN: Soft, nontender, nondistended, no rebound, no grimacing on deep palpation. EXTREMITIES: No edema, no cyanosis, no clubbing. NEUROLOGIC: Moves all four extremities on deep palpation. PSYCHIATRIC: Intubated and sedated. DERMATOLOGIC: Warm, dry, no generalized rash. LABORATORY DATA: WBC 4.3, hemoglobin 10.6, hematocrit 32.9, platelets 131, lymphocyte 16, neutrophil 80. Sodium 140, potassium 4.7, chloride 94, bicarbonate 33, BUN 25, creatinine 1.0. Lactate 5.0, repeat 3.0. BNP 393. LFTs within normal limits. Albumin 3.8. Troponin less than 0.017. Influenza screen negative. UA negative. CHEST X-RAY: COPD with superimposed bronchitis. IMPRESSION: 1. Fevers. Etiology respiratory, cannot rule out viral infection, influenza screen negative. 2. Lactic acidosis. 3. Acute respiratory failure, hypoxic/hypercapnic on intubation. 4. History of smoking. 5. Undernourished. 6. Sepsis. 7. Lactic acidosis. 8. Anemia. 9. Mild thrombocytopenia. 10. History of bronchiectasis. RECOMMENDATIONS: 1. Continue empiric IV vancomycin and Zosyn. 2. Monitor renal functions closely. 3. Adjust dose of vancomycin per renal function and trough levels. 4. We will add empiric Tamiflu through OG tube as RVP is not available here at this hospital for administration. 5. Follow up labs in a.m. and cultures. 6. Continue supportive care. 7. F/U CT head 8. Discussed with RN. Thank you, Dr. Tavares for consulting Infectious Disease to participate in this patient's care. If you have any questions, do not hesitate to contact me. EMPERATRIZ FOWLER MD DR: YAHAIRA/karly JOB#: [id number] / [id number] KEVIN
--- NOTE | 2018-09-23 11:08 | CONS ---
DATE OF CONSULTATION: REFERRING PHYSICIAN: Dr. Tavares. REASON FOR CONSULTATION: Respiratory failure. HISTORY OF PRESENT ILLNESS: The patient is a 57-year-old female who probably has severe COPD. She is on home oxygen and continues to smoke heavily. She was brought into the hospital after she was found to be unresponsive. EMS was called. She was noted to have a low Rome coma scale. She was saturating 60% and she was initially placed on nonrebreather mask. The patient was tried on BiPAP, but she failed. Arterial blood gases revealed a pH of 7.21, pCO2 of 143 and a pO2 of 54 on 40% FiO2. This was post-intubation. The patient's chest x-ray showed no acute infiltrate. There is a rounded density in the right lower lobe, likely a nipple shadow, but we will need to follow this. She was initially hypotensive after intubation and as a result required some fluid boluses and propofol was changed to Versed. Arterial blood gases latest have shown significant improvement with a pH of 7.52, pCO2 of 37 and a pO2 of 165. The rate has been adjusted. She is currently on assist control rate of 18, tidal volume 450, and 40% FiO2. PAST MEDICAL HISTORY: Suspect severe COPD. PAST SURGICAL HISTORY: No recent surgeries. FAMILY HISTORY: Unknown. ALLERGIES: None. MEDICATIONS: Reviewed, as listed in the MRAD, including broad-spectrum antibiotics. REVIEW OF SYSTEMS: Unable to obtain from the patient. PHYSICAL EXAMINATION: VITAL SIGNS: Reviewed. Her T-max is 100.9. Blood pressure is stable, 116 systolic; afebrile; pulse ox 100%. HEENT: Sclerae nonicteric. NECK: Supple. LUNGS: With bilateral expiratory wheezes. CARDIOVASCULAR: Regular rate. ABDOMEN: Soft, nontender. EXTREMITIES: With no pitting edema. LABORATORY DATA: Reviewed. ABGs are discussed in my history of present illness. BUN 25, creatinine 1.0. Lactic acid was 5.0, now trending down to 3.0. White cell count 4.3, hemoglobin 10.6 and platelets are 131. Influenza screen negative. IMPRESSION: 1. [id number] hypercapnic respiratory failure secondary to acute exacerbation of chronic obstructive pulmonary disease, toxic encephalopathy related to severe hypercarbia and likely a lower respiratory tract infection. 2. High-grade fever. Influenza screen negative. No definite consolidation on the chest x-ray, but likely acute bronchitis, but we will look for other sources of infection as well. 3. Suspect underlying severe chronic obstructive pulmonary disease. 4. Lactic acidosis related to early sepsis, improving with hydration. 5. Hypotension, probably related to dehydration and post-intubation. Responded to IV fluids. RECOMMENDATION: 1. Continue with present assist control mode and make necessary adjustment based on ABGs. 2. Empiric antibiotic. 3. Follow cultures including blood culture, sputum cultures and urine cultures. 4. The patient has been placed on Tamiflu and we will monitor. 5. Broad-spectrum antibiotics. 6. DVT prophylaxis with Lovenox. 7. Stress ulcer prophylaxis with PPI. 8. I will monitor the fever pattern. 9. We may consider weaning off sedation in next 24 hours and assess for a weaning trial. 10. Discussed with RN and RT. We will follow along with you. Critical care time 40 minutes. SHAYLEE RUSH MD DR: LASHELL/karly JOB#: [id number] / [id number]
[2018-09-23] MEDS: IPRATRPIUM/ALBUTEROL 0.5/2.5MG 3 ML NEBU. NEB SCH ×3 (11:58→19:59)
[2018-09-23 12:23] LABS: BASE EXCESS IS ARTERIAL 6 mmol/L (0-3); CORRECTED PCO2 34 mmHg; CORRECTED PH 7.53; CORRECTED PO2 163 mmHg; HCO3 IS ARTERIAL 29 mmol/L (21-28); PCO2 IS ARTERIAL 35 mmHg (35-45); PH IS ARTERIAL 7.53 (7.35-7.45); PO2 IS ARTERIAL 165 mmHg (75-100); SAT O2 IS ARTERIAL 100 % (95-99); TCO2 IS ARTERIAL 30 mmol/L (21-32)
[2018-09-23] MEDS: OSELTAMIVIR 30 MG/5 ML ORAL.SUSP. NG SCH ×2 (12:48→21:06)
[2018-09-23] MEDS: PANTOPRAZOLE IV PUSH 40 MG VIAL. IVP SCH (12:48)
[2018-09-24] VITALS (24 sets, daily range): BP systolic 116–155; BP diastolic 61–90
[2018-09-24] MEDS: VANCOMYCIN 500 MG in IV DEXTROSE 5% 100ML 100 ML IV SCH (03:57)
[2018-09-24] MEDS: PIPERACILLIN/TAZOBACTAM 2.25 GM in IV NORMAL SALINE 50ML 50 ML IV SCH ×6 (06:03→23:57)
[2018-09-24 06:23] LABS: BASO % 0 % (0-3); EOS % 1 % (0-3); HEMATOCRIT 25.3 % (36.0-47.0); HEMOGLOBIN 8.5 g/dL (12.0-15.5); LYMPH # 1.2 x10^3/uL (1.0-4.8); LYMPH % 20 % (24-48); MEAN CORPUSCULAR HEMOGLOBIN 31 pg (25-35); MEAN CORPUSCULAR HGB CONC 33 g/dL (31-37); MEAN CORPUSCULAR VOLUME 92 fL (79-100); MONO # 0.7 x10^3/uL (0.0-1.1); MONO % 12 % (0-9); NEUT # 3.9 x10^3uL (1.8-7.7); NEUT % 67 % (31-73); PLATELET COUNT 119 x10^3/uL (140-400); RED BLOOD COUNT 2.75 x10^6/uL (3.50-5.40); RED CELL DISTRIBUTION WIDTH 16.5 % (11.5-14.5); WHITE BLOOD COUNT 5.8 x10^3/uL (4.0-11.0)
[2018-09-24 06:46] LABS: ALBUMIN 2.5 g/dL (3.4-5.0); ALBUMIN/GLOBULIN RATIO 0.9 (1.0-1.7); CREATININE 1.1 mg/dL (0.6-1.0); GFR 51.2; POTASSIUM 3.6 mmol/L (3.5-5.1); TOTAL BILIRUBIN 0.6 mg/dL (0.2-1.0); TOTAL PROTEIN 5.2 g/dL (6.4-8.2)
[2018-09-24] MEDS: IV NORMAL SALINE 1000ML BAG 1,000 ML IV SCH ×3 (07:41→17:41)
[2018-09-24] MEDS: PANTOPRAZOLE IV PUSH 40 MG VIAL. IVP SCH (07:43)
[2018-09-24] MEDS: IPRATRPIUM/ALBUTEROL 0.5/2.5MG 3 ML NEBU. NEB SCH ×4 (07:53→20:09)
[2018-09-24] MEDS ORDERED: ENOXAPARIN 40 MG/0.4 ML SYRINGE. SQ SCH (08:00)
--- NOTE | 2018-09-24 08:15 | PDOC ---
Infectious Disease Note Subjective: Subjective Pt is intubated alert awake denies any headache, abdo pain,nausea or vomiting on Fio2 at 35% ROS: ROS intubated d/w rn Vital Signs: Vital Signs Vital Signs Date Time Temp Pulse Resp B/P (MAP) Pulse Ox O2 Delivery O2 Flow Rate FiO2 09/24/18 07:54 100 Ventilator 09/24/18 06:00 97 18 149/85 (106) 09/24/18 04:00 99.3 99.3 Physical Exam: PHYSICAL EXAM GENERAL: alert awake intubated, in nad HEENT: OG tube in place, intubated, no icterus. Pupils equal, reactive. No thrush. NECK: Supple. LUNGS: Decreased breath sounds at bases, otherwise clear. HEART: S1, S2, tachycardia. ABDOMEN: Soft, nontender, nondistended, no rebound, no grimacing on deep palpation. EXTREMITIES: No edema, no cyanosis, no clubbing. NEUROLOGIC: Moves all four extremities PSYCHIATRIC: alert awake cooperative DERMATOLOGIC: Warm, dry, no generalized rash. Medications: Inpatient Meds: Current Medications Medications (Trade) Dose Ordered Sig/Darling Start Time Stop Time Status Last Admin Dose Admin Albuterol Sulfate (Ventolin Neb Soln) 10 mg 1X ONCE 09/22/18 22:00 09/22/18 22:01 DC 09/22/18 21:36 10 MG Albuterol/ Ipratropium (Duoneb) 3 ml RTQID 09/23/18 12:00 09/24/18 07:53 3 ML Enoxaparin Sodium (Lovenox 30mg Syringe) 30 mg QHS 09/23/18 01:30 09/23/18 21:06 30 MG Enoxaparin Sodium (Lovenox 40mg Syringe) 40 mg Q24H 09/24/18 08:00 Cancel Enoxaparin Sodium (Lovenox Per Pharmacy Prophylaxis Dosing) 1 each PRN DAILY PRN 09/23/18 01:30 09/23/18 07:24 DC Etomidate (Amidate) 20 mg 1X ONCE 09/22/18 22:45 09/22/18 22:46 DC 09/22/18 22:05 20 MG Ipratropium Magdalena (Atrovent) 0.5 mg 1X ONCE 09/22/18 22:00 09/22/18 22:01 DC 09/22/18 21:36 0.5 MG Lorazepam (Ativan) 2 mg 1X ONCE 09/22/18 22:00 09/22/18 22:01 DC 09/22/18 21:38 2 MG Methylprednisolone Sodium Succinate (SOLU-Medrol 125MG VIAL) 125 mg 1X ONCE 09/22/18 22:00 09/22/18 22:01 DC 09/22/18 21:38 125 MG Midazolam HCl 100 ml @ 5 mls/hr CONT PRN 09/23/18 01:30 09/23/18 17:47 5 MLS/HR Oseltamivir Phosphate (Tamiflu Suspension) 30 mg BID 09/23/18 10:30 09/28/18 10:29 09/23/18 21:06 30 MG Pantoprazole Sodium (PROTONIX VIAL for IV PUSH) 40 mg DAILYAC 09/23/18 07:30 09/24/18 07:43 40 MG Piperacillin Sod/ Tazobactam Sod (Zosyn Per Pharmacy) 1 each PRN DAILY PRN 09/23/18 03:30 09/23/18 07:25 DC Piperacillin Sod/ Tazobactam Sod 2.25 gm/Sodium Chloride 50 ml @ 100 mls/hr Q6HRS 09/23/18 05:00 09/24/18 06:03 100 MLS/HR Propofol 100 ml @ 0 mls/hr CONT PRN 09/22/18 22:45 09/22/18 22:10 0.6 MLS/HR Sodium Chloride 250 ml @ 250 mls/hr 1X ONCE 09/23/18 01:45 09/23/18 02:44 DC 09/23/18 00:30 250 MLS/HR Vancomycin HCl (Vanco Per Pharmacy) 1 each PRN DAILY PRN 09/23/18 03:30 09/23/18 10:33 1 EACH Vancomycin HCl (Vancomycin Trough Level) 1 each 1X ONCE 09/25/18 03:30 09/25/18 03:31 Vancomycin HCl 500 mg/Dextrose 100 ml @ 100 mls/hr Q24H 09/24/18 04:00 09/24/18 03:57 100 MLS/HR Vancomycin HCl 1 gm/Sodium Chloride 250 ml @ 250 mls/hr 1X ONCE 09/23/18 04:00 09/23/18 04:59 DC 09/23/18 03:41 250 MLS/HR Vecuronium Magdalena (Norcuron Bolus) 10 mg 1X ONCE 09/22/18 22:45 09/22/18 22:46 DC 09/22/18 22:05 10 MG Labs: Lab Laboratory Tests Test 09/23/18 09:25 09/23/18 09:26 09/24/18 06:00 O2 Saturation 100 % (92-99) Arterial Blood pH 7.53 (7.35-7.45) Arterial Blood pCO2 at Patient Temp 35 mmHg (35-46) Arterial Blood pO2 at Patient Temp 165 mmHg (75-108) Arterial Blood HCO3 29 mmol/L (21-28) 29 mmol/L (21-28) Arterial Blood Base Excess 6 mmol/L (-3-3) FiO2 40 Bedside Arterial pH 7.53 (7.35-7.45) Arterial Blood pH (Temp corrected) 7.53 Bedside Arterial pCO2 35 mmHg (35-45) Arterial Blood pCO2 (Temp correct) 34 mmHg Bedside Arterial pO2 165 mmHg (75-100) Arterial Blood pO2 (Temp corrected) 163 mmHg Bedside Arterial Blood O2 Sat 100 % (95-99) Bedside FiO2 40.0 White Blood Count 5.8 x10^3/uL (4.0-11.0) Red Blood Count 2.75 x10^6/uL (3.50-5.40) Hemoglobin 8.5 g/dL (12.0-15.5) Hematocrit 25.3 % (36.0-47.0) Mean Corpuscular Volume 92 fL (79-100) Mean Corpuscular Hemoglobin 31 pg (25-35) Mean Corpuscular Hemoglobin Concent 33 g/dL (31-37) Red Cell Distribution Width 16.5 % (11.5-14.5) Platelet Count 119 x10^3/uL (140-400) Neutrophils (%) (Auto) 67 % (31-73) Lymphocytes (%) (Auto) 20 % (24-48) Monocytes (%) (Auto) 12 % (0-9) Eosinophils (%) (Auto) 1 % (0-3) Basophils (%) (Auto) 0 % (0-3) Neutrophils # (Auto) 3.9 x10^3uL (1.8-7.7) Lymphocytes # (Auto) 1.2 x10^3/uL (1.0-4.8) Monocytes # (Auto) 0.7 x10^3/uL (0.0-1.1) Eosinophils # (Auto) 0.0 x10^3/uL (0.0-0.7) Basophils # (Auto) 0.0 x10^3/uL (0.0-0.2) Sodium Level 140 mmol/L (136-145) Potassium Level 3.6 mmol/L (3.5-5.1) Chloride Level 102 mmol/L (98-107) Carbon Dioxide Level 34 mmol/L (21-32) Anion Gap 4 (6-14) Blood Urea Nitrogen 22 mg/dL (7-20) Creatinine 1.1 mg/dL (0.6-1.0) Estimated GFR (Cockcroft-Gault) 51.2 BUN/Creatinine Ratio 20 (6-20) Glucose Level 145 mg/dL (70-99) Calcium Level 8.0 mg/dL (8.5-10.1) Total Bilirubin 0.6 mg/dL (0.2-1.0) Aspartate Amino Transf (AST/SGOT) 18 U/L (15-37) Alanine Aminotransferase (ALT/SGPT) 8 U/L (14-59) Alkaline Phosphatase 42 U/L (46-116) Total Protein 5.2 g/dL (6.4-8.2) Albumin 2.5 g/dL (3.4-5.0) Albumin/Globulin Ratio 0.9 (1.0-1.7) Micro C/S neg so far CT Brain IMPRESSION: There is bilateral inferior frontal lobe hypoattenuation, left worse than right. There is no appreciable volume loss. Considerations include subacute contusion or infarct or nonspecific cerebral edema. If diagnosis is not known recommend MR brain for further evaluation. Objective: Assessment: Fever source likely respiratory including viral vs other, flu screen neg, Acute resp failure s/p intubation Anemia/thrombocytopenia lactic acidosis hypotension requiring pressors Encephalopathy resolved COPD History of bronchiectasis. Plan: Plan of Care cont vanc/zosyn monitor renal functions closely empiric tamiflu cont supportive care Follow up labs in a.m. and cultures. Discussed with FIFI. EMPERATRIZ FOWLER MD Sep 24, 2018 08:15
[2018-09-24 08:16] LABS: BASE EXCESS ABG 9 mmol/L (-3-3); HCO3 ABG 33 mmol/L (21-28); PCO2 ABG 43 mmHg (35-46); PO2 ABG 88 mmHg (75-108); SAT O2 ABG 97 % (92-99)
[2018-09-24 08:19] LABS: FIO2 ABG 35
--- NOTE | 2018-09-24 09:20 | PDOC ---
PROGRESS NOTES Chief Complaint Chief Complaint Severe hypercapnic/hypoxic respiratory failure, intubated for C02 (>200s) Heavy smoker Undernourished, cachexia BMI 13 Low grade Temperatures, sepsis with no organ dysfunction History of Present Illness History of Present Illness NO More fevers Seen in ICU, wide awake and attempting to wean off ventilator possibly today ABG today pH 7.5 CO2 normalized to 45 from 250s on admission Mittens at hand, she is a little bit anxious PLAn: Hopefully might be able to extubate If extubated, then she was just intubated for 24-48 hrs. Need to quit smoking, her clothes smelled of cigarettes No pneumonia on chest x-ray So far no family at bedside FEvers have resolved, low grade only - able to get off vancomycin soon-ID consulted, empiric antibiotics started Vitals Vitals Vital Signs Date Time Temp Pulse Resp B/P (MAP) Pulse Ox O2 Delivery O2 Flow Rate FiO2 09/24/18 07:54 100 Ventilator 09/24/18 06:00 97 18 149/85 (106) 09/24/18 04:00 99.3 99.3 Physical Exam Physical Exam GENERAL: alert awake intubated, in nad HEENT: OG tube in place, intubated, no icterus. Pupils equal, reactive. No thrush. NECK: Supple. LUNGS: Decreased breath sounds at bases, otherwise clear. HEART: S1, S2, tachycardia. ABDOMEN: Soft, nontender, nondistended, no rebound, no grimacing on deep palpation. EXTREMITIES: No edema, no cyanosis, no clubbing. NEUROLOGIC: Moves all four extremities PSYCHIATRIC: alert awake cooperative DERMATOLOGIC: Warm, dry, no generalized rash. General: No acute distress, Other (undernourished, minimal subcutaneous tissue , BMI of 13) Abdomen: Normal bowel sounds, Soft, No tenderness, No hepatosplenomegaly, No masses Extremities: No clubbing, No cyanosis, No edema, Normal pulses, No tenderness/ swelling Skin: No rashes, No breakdown, No significant lesion Labs LABS Laboratory Tests Test 09/23/18 09:25 09/23/18 09:26 09/24/18 06:00 09/24/18 08:10 O2 Saturation 100 % (92-99) 97 % (92-99) Arterial Blood pH 7.53 (7.35-7.45) 7.51 (7.35-7.45) Arterial Blood pCO2 at Patient Temp 35 mmHg (35-46) 43 mmHg (35-46) Arterial Blood pO2 at Patient Temp 165 mmHg (75-108) 88 mmHg (75-108) Arterial Blood HCO3 29 mmol/L (21-28) 29 mmol/L (21-28) 33 mmol/L (21-28) Arterial Blood Base Excess 6 mmol/L (-3-3) 9 mmol/L (-3-3) FiO2 40 35 Bedside Arterial pH 7.53 (7.35-7.45) Arterial Blood pH (Temp corrected) 7.53 Bedside Arterial pCO2 35 mmHg (35-45) Arterial Blood pCO2 (Temp correct) 34 mmHg Bedside Arterial pO2 165 mmHg (75-100) Arterial Blood pO2 (Temp corrected) 163 mmHg Bedside Arterial Blood O2 Sat 100 % (95-99) Bedside FiO2 40.0 White Blood Count 5.8 x10^3/uL (4.0-11.0) Red Blood Count 2.75 x10^6/uL (3.50-5.40) Hemoglobin 8.5 g/dL (12.0-15.5) Hematocrit 25.3 % (36.0-47.0) Mean Corpuscular Volume 92 fL (79-100) Mean Corpuscular Hemoglobin 31 pg (25-35) Mean Corpuscular Hemoglobin Concent 33 g/dL (31-37) Red Cell Distribution Width 16.5 % (11.5-14.5) Platelet Count 119 x10^3/uL (140-400) Neutrophils (%) (Auto) 67 % (31-73) Lymphocytes (%) (Auto) 20 % (24-48) Monocytes (%) (Auto) 12 % (0-9) Eosinophils (%) (Auto) 1 % (0-3) Basophils (%) (Auto) 0 % (0-3) Neutrophils # (Auto) 3.9 x10^3uL (1.8-7.7) Lymphocytes # (Auto) 1.2 x10^3/uL (1.0-4.8) Monocytes # (Auto) 0.7 x10^3/uL (0.0-1.1) Eosinophils # (Auto) 0.0 x10^3/uL (0.0-0.7) Basophils # (Auto) 0.0 x10^3/uL (0.0-0.2) Sodium Level 140 mmol/L (136-145) Potassium Level 3.6 mmol/L (3.5-5.1) Chloride Level 102 mmol/L (98-107) Carbon Dioxide Level 34 mmol/L (21-32) Anion Gap 4 (6-14) Blood Urea Nitrogen 22 mg/dL (7-20) Creatinine 1.1 mg/dL (0.6-1.0) Estimated GFR (Cockcroft-Gault) 51.2 BUN/Creatinine Ratio 20 (6-20) Glucose Level 145 mg/dL (70-99) Calcium Level 8.0 mg/dL (8.5-10.1) Total Bilirubin 0.6 mg/dL (0.2-1.0) Aspartate Amino Transf (AST/SGOT) 18 U/L (15-37) Alanine Aminotransferase (ALT/SGPT) 8 U/L (14-59) Alkaline Phosphatase 42 U/L (46-116) Total Protein 5.2 g/dL (6.4-8.2) Albumin 2.5 g/dL (3.4-5.0) Albumin/Globulin Ratio 0.9 (1.0-1.7) Review of Systems Review of Systems intubated hence limited ROS Assessment and Plan Assessmemt and Plan Problems Medical Problems: (1) Acute respiratory failure with hypercapnia Status: Acute (2) COPD with acute exacerbation Status: Acute Comment Review of Relevant I have reviewed the following items alexsander (where applicable) has been applied. Labs Laboratory Tests Test 09/22/18 21:10 09/22/18 21:16 09/22/18 21:50 09/22/18 22:35 White Blood Count 6.4 x10^3/uL (4.0-11.0) Red Blood Count 4.24 x10^6/uL (3.50-5.40) Hemoglobin 13.1 g/dL (12.0-15.5) Hematocrit 41.0 % (36.0-47.0) Mean Corpuscular Volume 97 fL (79-100) Mean Corpuscular Hemoglobin 31 pg (25-35) Mean Corpuscular Hemoglobin Concent 32 g/dL (31-37) Red Cell Distribution Width 15.7 % (11.5-14.5) Platelet Count 165 x10^3/uL (140-400) Neutrophils (%) (Auto) 80 % (31-73) Lymphocytes (%) (Auto) 11 % (24-48) Monocytes (%) (Auto) 7 % (0-9) Eosinophils (%) (Auto) 1 % (0-3) Basophils (%) (Auto) 1 % (0-3) Neutrophils # (Auto) 5.1 x10^3uL (1.8-7.7) Lymphocytes # (Auto) 0.7 x10^3/uL (1.0-4.8) Monocytes # (Auto) 0.5 x10^3/uL (0.0-1.1) Eosinophils # (Auto) 0.1 x10^3/uL (0.0-0.7) Basophils # (Auto) 0.0 x10^3/uL (0.0-0.2) Sodium Level 138 mmol/L (136-145) Potassium Level 4.6 mmol/L (3.5-5.1) Chloride Level 89 mmol/L (98-107) Carbon Dioxide Level 44 mmol/L (21-32) Anion Gap 5 (6-14) Blood Urea Nitrogen 21 mg/dL (7-20) Creatinine 0.9 mg/dL (0.6-1.0) Estimated GFR (Cockcroft-Gault) 64.5 BUN/Creatinine Ratio 23 (6-20) Glucose Level 144 mg/dL (70-99) Lactic Acid Level 3.6 mmol/L (0.4-2.0) Calcium Level 9.6 mg/dL (8.5-10.1) Total Bilirubin 0.6 mg/dL (0.2-1.0) Aspartate Amino Transf (AST/SGOT) 21 U/L (15-37) Alanine Aminotransferase (ALT/SGPT) 10 U/L (14-59) Alkaline Phosphatase 79 U/L (46-116) Troponin I Quantitative < 0.017 ng/mL (0.000-0.055) EM-Lcs-T-Type Natriuretic Peptide 393 pg/mL (0-124) Total Protein 8.4 g/dL (6.4-8.2) Albumin 3.8 g/dL (3.4-5.0) Albumin/Globulin Ratio 0.8 (1.0-1.7) O2 Saturation 88 % (92-99) Arterial Blood pH 7.21 (7.35-7.45) Arterial Blood pCO2 at Patient Temp 143 mmHg (35-46) Arterial Blood pO2 at Patient Temp 54 mmHg (75-108) Arterial Blood HCO3 56 mmol/L (21-28) Arterial Blood Base Excess 21 mmol/L (-3-3) FiO2 40 Influenza Type A Antigen Negative (NEGATIVE) Influenza Type B Antigen Negative (NEGATIVE) Urine Collection Type Unknown Urine Color Yellow Urine Clarity Clear Urine pH 6.0 Urine Specific [place] 1.015 Urine Protein 30 mg/dL (NEG-TRACE) Urine Glucose (UA) Negative mg/dL (NEG) Urine Ketones (Stick) 40 mg/dL (NEG) Urine Blood Negative (NEG) Urine Nitrite Negative (NEG) Urine Bilirubin Negative (NEG) Urine Urobilinogen Dipstick 0.2 mg/dL (0.2 mg/dL) Urine Leukocyte Esterase Negative (NEG) Urine RBC 3-5 /HPF (0-2) Urine WBC 1-4 /HPF (0-4) Urine Squamous Epithelial Cells Few /LPF Urine Amorphous Sediment Present /HPF Urine Bacteria 0 /HPF (0-FEW) Urine Granular Casts Occasional /HPF Urine Mucus Slight /LPF Test 09/23/18 01:40 09/23/18 03:00 09/23/18 06:27 09/23/18 09:25 Lactic Acid Level 5.0 mmol/L (0.4-2.0) 3.0 mmol/L (0.4-2.0) Nasal Screen MRSA (PCR) Negative (Negative) White Blood Count 4.3 x10^3/uL (4.0-11.0) Red Blood Count 3.45 x10^6/uL (3.50-5.40) Hemoglobin 10.6 g/dL (12.0-15.5) Hematocrit 32.9 % (36.0-47.0) Mean Corpuscular Volume 95 fL (79-100) Mean Corpuscular Hemoglobin 31 pg (25-35) Mean Corpuscular Hemoglobin Concent 32 g/dL (31-37) Red Cell Distribution Width 15.7 % (11.5-14.5) Platelet Count 131 x10^3/uL (140-400) Neutrophils (%) (Auto) 80 % (31-73) Lymphocytes (%) (Auto) 16 % (24-48) Monocytes (%) (Auto) 3 % (0-9) Eosinophils (%) (Auto) 0 % (0-3) Basophils (%) (Auto) 0 % (0-3) Neutrophils # (Auto) 3.4 x10^3uL (1.8-7.7) Lymphocytes # (Auto) 0.7 x10^3/uL (1.0-4.8) Monocytes # (Auto) 0.1 x10^3/uL (0.0-1.1) Eosinophils # (Auto) 0.0 x10^3/uL (0.0-0.7) Basophils # (Auto) 0.0 x10^3/uL (0.0-0.2) Sodium Level 140 mmol/L (136-145) Potassium Level 4.7 mmol/L (3.5-5.1) Chloride Level 94 mmol/L (98-107) Carbon Dioxide Level 33 mmol/L (21-32) Anion Gap 13 (6-14) Blood Urea Nitrogen 25 mg/dL (7-20) Creatinine 1.0 mg/dL (0.6-1.0) Estimated GFR (Cockcroft-Gault) 57.1 Glucose Level 121 mg/dL (70-99) Calcium Level 8.6 mg/dL (8.5-10.1) O2 Saturation 100 % (92-99) Arterial Blood pH 7.53 (7.35-7.45) Arterial Blood pCO2 at Patient Temp 35 mmHg (35-46) Arterial Blood pO2 at Patient Temp 165 mmHg (75-108) Arterial Blood HCO3 29 mmol/L (21-28) Arterial Blood Base Excess 6 mmol/L (-3-3) FiO2 40 Test 09/23/18 09:26 09/24/18 06:00 09/24/18 08:10 Bedside Arterial pH 7.53 (7.35-7.45) Arterial Blood pH (Temp corrected) 7.53 Bedside Arterial pCO2 35 mmHg (35-45) Arterial Blood pCO2 (Temp correct) 34 mmHg Bedside Arterial pO2 165 mmHg (75-100) Arterial Blood pO2 (Temp corrected) 163 mmHg Arterial Blood HCO3 29 mmol/L (21-28) 33 mmol/L (21-28) Bedside Arterial Blood O2 Sat 100 % (95-99) Bedside FiO2 40.0 White Blood Count 5.8 x10^3/uL (4.0-11.0) Red Blood Count 2.75 x10^6/uL (3.50-5.40) Hemoglobin 8.5 g/dL (12.0-15.5) Hematocrit 25.3 % (36.0-47.0) Mean Corpuscular Volume 92 fL (79-100) Mean Corpuscular Hemoglobin 31 pg (25-35) Mean Corpuscular Hemoglobin Concent 33 g/dL (31-37) Red Cell Distribution Width 16.5 % (11.5-14.5) Platelet Count 119 x10^3/uL (140-400) Neutrophils (%) (Auto) 67 % (31-73) Lymphocytes (%) (Auto) 20 % (24-48) Monocytes (%) (Auto) 12 % (0-9) Eosinophils (%) (Auto) 1 % (0-3) Basophils (%) (Auto) 0 % (0-3) Neutrophils # (Auto) 3.9 x10^3uL (1.8-7.7) Lymphocytes # (Auto) 1.2 x10^3/uL (1.0-4.8) Monocytes # (Auto) 0.7 x10^3/uL (0.0-1.1) Eosinophils # (Auto) 0.0 x10^3/uL (0.0-0.7) Basophils # (Auto) 0.0 x10^3/uL (0.0-0.2) Sodium Level 140 mmol/L (136-145) Potassium Level 3.6 mmol/L (3.5-5.1) Chloride Level 102 mmol/L (98-107) Carbon Dioxide Level 34 mmol/L (21-32) Anion Gap 4 (6-14) Blood Urea Nitrogen 22 mg/dL (7-20) Creatinine 1.1 mg/dL (0.6-1.0) Estimated GFR (Cockcroft-Gault) 51.2 BUN/Creatinine Ratio 20 (6-20) Glucose Level 145 mg/dL (70-99) Calcium Level 8.0 mg/dL (8.5-10.1) Total Bilirubin 0.6 mg/dL (0.2-1.0) Aspartate Amino Transf (AST/SGOT) 18 U/L (15-37) Alanine Aminotransferase (ALT/SGPT) 8 U/L (14-59) Alkaline Phosphatase 42 U/L (46-116) Total Protein 5.2 g/dL (6.4-8.2) Albumin 2.5 g/dL (3.4-5.0) Albumin/Globulin Ratio 0.9 (1.0-1.7) O2 Saturation 97 % (92-99) Arterial Blood pH 7.51 (7.35-7.45) Arterial Blood pCO2 at Patient Temp 43 mmHg (35-46) Arterial Blood pO2 at Patient Temp 88 mmHg (75-108) Arterial Blood Base Excess 9 mmol/L (-3-3) FiO2 35 Laboratory Tests Test 09/23/18 09:25 09/23/18 09:26 09/24/18 06:00 09/24/18 08:10 O2 Saturation 100 % (92-99) 97 % (92-99) Arterial Blood pH 7.53 (7.35-7.45) 7.51 (7.35-7.45) Arterial Blood pCO2 at Patient Temp 35 mmHg (35-46) 43 mmHg (35-46) Arterial Blood pO2 at Patient Temp 165 mmHg (75-108) 88 mmHg (75-108) Arterial Blood HCO3 29 mmol/L (21-28) 29 mmol/L (21-28) 33 mmol/L (21-28) Arterial Blood Base Excess 6 mmol/L (-3-3) 9 mmol/L (-3-3) FiO2 40 35 Bedside Arterial pH 7.53 (7.35-7.45) Arterial Blood pH (Temp corrected) 7.53 Bedside Arterial pCO2 35 mmHg (35-45) Arterial Blood pCO2 (Temp correct) 34 mmHg Bedside Arterial pO2 165 mmHg (75-100) Arterial Blood pO2 (Temp corrected) 163 mmHg Bedside Arterial Blood O2 Sat 100 % (95-99) Bedside FiO2 40.0 White Blood Count 5.8 x10^3/uL (4.0-11.0) Red Blood Count 2.75 x10^6/uL (3.50-5.40) Hemoglobin 8.5 g/dL (12.0-15.5) Hematocrit 25.3 % (36.0-47.0) Mean Corpuscular Volume 92 fL (79-100) Mean Corpuscular Hemoglobin 31 pg (25-35) Mean Corpuscular Hemoglobin Concent 33 g/dL (31-37) Red Cell Distribution Width 16.5 % (11.5-14.5) Platelet Count 119 x10^3/uL (140-400) Neutrophils (%) (Auto) 67 % (31-73) Lymphocytes (%) (Auto) 20 % (24-48) Monocytes (%) (Auto) 12 % (0-9) Eosinophils (%) (Auto) 1 % (0-3) Basophils (%) (Auto) 0 % (0-3) Neutrophils # (Auto) 3.9 x10^3uL (1.8-7.7) Lymphocytes # (Auto) 1.2 x10^3/uL (1.0-4.8) Monocytes # (Auto) 0.7 x10^3/uL (0.0-1.1) Eosinophils # (Auto) 0.0 x10^3/uL (0.0-0.7) Basophils # (Auto) 0.0 x10^3/uL (0.0-0.2) Sodium Level 140 mmol/L (136-145) Potassium Level 3.6 mmol/L (3.5-5.1) Chloride Level 102 mmol/L (98-107) Carbon Dioxide Level 34 mmol/L (21-32) Anion Gap 4 (6-14) Blood Urea Nitrogen 22 mg/dL (7-20) Creatinine 1.1 mg/dL (0.6-1.0) Estimated GFR (Cockcroft-Gault) 51.2 BUN/Creatinine Ratio 20 (6-20) Glucose Level 145 mg/dL (70-99) Calcium Level 8.0 mg/dL (8.5-10.1) Total Bilirubin 0.6 mg/dL (0.2-1.0) Aspartate Amino Transf (AST/SGOT) 18 U/L (15-37) Alanine Aminotransferase (ALT/SGPT) 8 U/L (14-59) Alkaline Phosphatase 42 U/L (46-116) Total Protein 5.2 g/dL (6.4-8.2) Albumin 2.5 g/dL (3.4-5.0) Albumin/Globulin Ratio 0.9 (1.0-1.7) Medications Current Medications Methylprednisolone Sodium Succinate (SOLU-Medrol 125MG VIAL) 125 mg 1X ONCE IV Last administered on 09/22/18at 21:38; Start 09/22/18 at 22:00; Stop at 22:01; Status DC Albuterol Sulfate (Ventolin Neb Soln) 10 mg 1X ONCE CONT NEB Last administered on 09/22/18at 21:36; Start 09/22/18 at 22:00; Stop 09/22/18 at 22 :01; Status DC Ipratropium [place] (Atrovent) 0.5 mg 1X ONCE NEB Last administered on at 21:36; Start 09/22/18 at 22:00; Stop 09/22/18 at 22:01; Status DC Lorazepam (Ativan) 2 mg 1X ONCE IV Last administered on 09/22/18at 21:38; Start 09/22/18 at 22:00; Stop 09/22/18 at 22:01; Status DC Propofol 50 ml @ As Directed STK-MED ONCE IV ; Start 09/22/18 at 22:01; Stop 09/22/18 at 22:03; Status DC Etomidate (Amidate) 20 mg STK-MED ONCE IV ; Start 09/22/18 at 22:07; Stop 07/31 at 22:08; Status DC Vecuronium [place] (Norcuron Bolus) 10 mg STK-MED ONCE IV ; Start 09/22/18 at 22:07; Stop 09/22/18 at 22:08; Status DC Etomidate (Amidate) 20 mg 1X ONCE IV Last administered on 09/22/18at 22:05; Start 09/22/18 at 22:45; Stop 09/22/18 at 22:46; Status DC Vecuronium [place] (Norcuron Bolus) 10 mg 1X ONCE IV Last administered on 07/31at 22:05; Start 09/22/18 at 22:45; Stop 09/22/18 at 22:46; Status DC Propofol 100 ml @ 0 mls/hr CONT PRN IV SEE PROTOCOL Last administered on at 22:10; Start 09/22/18 at 22:45 Sodium Chloride 1,000 ml @ 1,000 mls/hr 1X ONCE IV Last administered on 09/23at 01:38; Start 09/23/18 at 01:30; Stop 09/23/18 at 02:29; Status DC Sodium Chloride 1,000 ml @ 1,000 mls/hr 1X ONCE IV Last administered on 09/23at 02:08; Start 09/23/18 at 01:30; Stop 09/23/18 at 02:29; Status DC Sodium Chloride 1,000 ml @ 150 mls/hr Q6H40M IV Last administered on at 07:43; Start 09/23/18 at 02:30 Enoxaparin Sodium (Lovenox Per Pharmacy Prophylaxis Dosing) 1 each PRN DAILY PRN MC SEE COMMENTS; Start 09/23/18 at 01:30; Stop 09/23/18 at 07:24; Status DC Midazolam HCl 100 ml @ 5 mls/hr CONT PRN IV SEE I/O RECORD Last administered on 09/23/18at 17:47; Start 09/23/18 at 01:30 Enoxaparin Sodium (Lovenox 30mg Syringe) 30 mg QHS SQ Last administered on 08/31at 21:06; Start 09/23/18 at 01:30 Sodium Chloride 250 ml @ 250 mls/hr 1X ONCE IV Last administered on at 00:30; Start 09/23/18 at 01:45; Stop 09/23/18 at 02:44; Status DC Piperacillin Sod/ Tazobactam Sod (Zosyn Per Pharmacy) 1 each PRN DAILY PRN MC SEE COMMENTS; Start 09/23/18 at 03:30; Stop 09/23/18 at 07:25; Status DC Vancomycin HCl (Vanco Per Pharmacy) 1 each PRN DAILY PRN MC SEE COMMENTS Last administered on 09/23/18at 10:33; Start 09/23/18 at 03:30 Vancomycin HCl 1 gm/Sodium Chloride 250 ml @ 250 mls/hr 1X ONCE IV Last administered on 09/23/18at 03:41; Start 09/23/18 at 04:00; Stop 09/23/18 at 04 :59; Status DC Piperacillin Sod/ Tazobactam Sod 2.25 gm/Sodium Chloride 50 ml @ 100 mls/hr Q6HRS IV Last administered on 09/24/18at 06:03; Start 09/23/18 at 05:00 Vancomycin HCl 500 mg/Dextrose 100 ml @ 100 mls/hr Q24H IV Last administered on 09/24/18at 03:57; Start 09/24/18 at 04:00 Vancomycin HCl (Vancomycin Trough Level) 1 each 1X ONCE MC ; Start 09/25/18 at 03:30; Stop 09/25/18 at 03:31 Albuterol/ Ipratropium (Duoneb) 3 ml 1X ONCE NEB Last administered on at 04:20; Start 09/23/18 at 04:30; Stop 09/23/18 at 04:31; Status DC Pantoprazole Sodium (PROTONIX VIAL for IV PUSH) 40 mg DAILYAC IVP Last administered on 09/24/18at 07:43; Start 09/23/18 at 07:30 Enoxaparin Sodium (Lovenox 40mg Syringe) 40 mg Q24H SQ ; Start 09/24/18 at 08: 00; Status Cancel Oseltamivir Phosphate (Tamiflu Suspension) 75 mg BID NG ; Start 09/23/18 at 09: 00; Stop 09/23/18 at 10:25; Status DC Albuterol/ Ipratropium (Duoneb) 3 ml RTQID NEB Last administered on 09/24/18at 07:53; Start 09/23/18 at 12:00 Oseltamivir Phosphate (Tamiflu Suspension) 30 mg BID NG Last administered on at 21:06; Start 09/23/18 at 10:30; Stop 09/28/18 at 10:29 Active Scripts Active Reported Mirtazapine 15 Mg Tablet 15 Mg PO DAILY Escitalopram Oxalate 5 Mg Tablet 5 Mg PO DAILY Metoprolol Succinate ( Xl ) (Metoprolol Succinate) 25 Mg Tab.er.24h 1 Tab PO DAILY Omeprazole 40 Mg Capsule. 40 Mg PO DAILY Albuterol Sulfate Neb Soln (Albuterol Sulfate) 2.5 Mg/3 Ml Vial.neb 2.5 Mg NEB PRN Proair Hfa Inhaler (Albuterol Sulfate) 8.5 Gm Hfa.aer.ad 2 Puff IH PRN Q4-6HRS PRN Omeprazole 20 Mg Capsule. 1 Cap PO DAILY Vitals/I & O Vital Sign - Last 24 Hours 09/23/18 09/23/18 09/23/18 09/23/18 09:45 10:00 11:00 11:15 Temp 98.0 98.0 Pulse 102 97 Resp 24 24 B/P (MAP) 111/69 (83) 121/75 (90) Pulse Ox 100 83 87 94 O2 Delivery Ventilator Ventilator Ventilator Ventilator 09/23/18 09/23/18 09/23/18 09/23/18 12:00 12:00 13:00 13:05 Pulse 102 108 Resp 18 B/P (MAP) 161/89 (113) 128/70 (89) Pulse Ox 94 98 97 O2 Delivery Mechanical Ventilator Ventilator Ventilator Ventilator 09/23/18 09/23/18 09/23/18 09/23/18 14:00 15:00 15:20 16:00 Temp 98.3 98.3 Pulse 108 106 106 Resp 18 18 18 B/P (MAP) 125/74 (91) 129/73 (91) 134/81 (98) Pulse Ox 98 99 99 100 O2 Delivery Ventilator Ventilator Ventilator Ventilator 09/23/18 09/23/18 09/23/18 09/23/18 16:00 17:08 17:30 18:00 Pulse 118 117 Resp 18 18 B/P (MAP) 125/77 (93) 128/75 (92) Pulse Ox 100 100 100 O2 Delivery Mechanical Ventilator Ventilator Ventilator Ventilator 09/23/18 09/23/18 09/23/18 09/23/18 19:00 19:59 20:00 20:00 Temp 99.0 99.0 Pulse 116 112 Resp 17 17 B/P (MAP) 130/72 (91) 122/88 (99) Pulse Ox 100 99 98 O2 Delivery Ventilator Ventilator Mechanical Ventilator Ventilator 09/23/18 09/23/18 09/23/18 09/23/18 21:00 21:10 22:00 23:00 Pulse 118 114 111 Resp 17 18 18 B/P (MAP) 119/77 (91) 133/76 (95) 145/81 (102) Pulse Ox 99 99 100 100 O2 Delivery Ventilator Ventilator Ventilator Ventilator 09/23/18 09/23/18 09/24/18 09/24/18 23:25 23:59 00:00 01:00 Temp 98.3 98.3 Pulse 101 108 Resp 18 17 B/P (MAP) 153/78 (103) 116/68 (84) Pulse Ox 100 100 100 O2 Delivery Ventilator Mechanical Ventilator Ventilator Ventilator 09/24/18 09/24/18 09/24/18 09/24/18 02:00 02:40 03:00 04:00 Pulse 111 111 Resp 18 18 B/P (MAP) 139/69 (92) 130/68 (88) Pulse Ox 99 99 100 O2 Delivery Ventilator Ventilator Ventilator Mechanical Ventilator 09/24/18 09/24/18 09/24/18 09/24/18 04:00 05:00 05:39 06:00 Temp 99.3 99.3 Pulse 112 102 97 Resp 18 18 18 B/P (MAP) 147/77 (100) 138/70 (92) 149/85 (106) Pulse Ox 99 100 100 100 O2 Delivery Ventilator Ventilator Ventilator Ventilator 09/24/18 07:54 Pulse Ox 100 O2 Delivery Ventilator Intake and Output 09/23/18 09/23/18 09/24/18 15:00 23:00 07:00 Intake Total 0 ml 1973 ml 1672 ml Output Total 143 ml 215 ml 280 ml Balance -143 ml 1758 ml 1392 ml Nutrition Consultation Dietary Evaluation: Recommendations by RD: Decrease Calorie Intake Comments: REC TF per following: Jevity 1.2@goal rate 35 ml/hr w/100 ml water flushes q4 hrs or flushes per MD Expected Outcomes/Goals: TF initiation/infusion for nutrition needs while pt remains intubated Malnutrition Findings: Body Fat Depletion (Non Severe: Mod to Severe Weight Status: Emaciated ROLY EDMOND MD Sep 24, 2018 09:20
[2018-09-24 10:25] LABS: BASE EXCESS ABG 8 mmol/L (-3-3); HCO3 ABG 34 mmol/L (21-28); PCO2 ABG 50 mmHg (35-46); PO2 ABG 96 mmHg (75-108); SAT O2 ABG 97 % (92-99)
[2018-09-24 10:44] LABS: FIO2 ABG 35
[2018-09-24] MEDS: OSELTAMIVIR 30 MG/5 ML ORAL.SUSP. NG SCH ×2 (11:02→20:58)
--- NOTE | 2018-09-24 11:11 | PDOC ---
PULMONARY PROGRESS NOTES Subjective awake, on CPAP trial Vitals Vital Signs Date Time Temp Pulse Resp B/P (MAP) Pulse Ox O2 Delivery O2 Flow Rate FiO2 09/24/18 09:50 99 Ventilator 09/24/18 07:00 97 18 137/73 (94) 09/24/18 04:00 99.3 99.3 General: Alert, No acute distress Lungs: Clear Cardiovascular: S1 Abdomen: Soft Neuro Exam: Alert Extremities: No Edema Skin: Warm Labs Laboratory Tests Test 09/22/18 21:10 09/22/18 21:16 09/22/18 21:50 09/22/18 22:35 White Blood Count 6.4 x10^3/uL (4.0-11.0) Red Blood Count 4.24 x10^6/uL (3.50-5.40) Hemoglobin 13.1 g/dL (12.0-15.5) Hematocrit 41.0 % (36.0-47.0) Mean Corpuscular Volume 97 fL (79-100) Mean Corpuscular Hemoglobin 31 pg (25-35) Mean Corpuscular Hemoglobin Concent 32 g/dL (31-37) Red Cell Distribution Width 15.7 % (11.5-14.5) Platelet Count 165 x10^3/uL (140-400) Neutrophils (%) (Auto) 80 % (31-73) Lymphocytes (%) (Auto) 11 % (24-48) Monocytes (%) (Auto) 7 % (0-9) Eosinophils (%) (Auto) 1 % (0-3) Basophils (%) (Auto) 1 % (0-3) Neutrophils # (Auto) 5.1 x10^3uL (1.8-7.7) Lymphocytes # (Auto) 0.7 x10^3/uL (1.0-4.8) Monocytes # (Auto) 0.5 x10^3/uL (0.0-1.1) Eosinophils # (Auto) 0.1 x10^3/uL (0.0-0.7) Basophils # (Auto) 0.0 x10^3/uL (0.0-0.2) Sodium Level 138 mmol/L (136-145) Potassium Level 4.6 mmol/L (3.5-5.1) Chloride Level 89 mmol/L (98-107) Carbon Dioxide Level 44 mmol/L (21-32) Anion Gap 5 (6-14) Blood Urea Nitrogen 21 mg/dL (7-20) Creatinine 0.9 mg/dL (0.6-1.0) Estimated GFR (Cockcroft-Gault) 64.5 BUN/Creatinine Ratio 23 (6-20) Glucose Level 144 mg/dL (70-99) Lactic Acid Level 3.6 mmol/L (0.4-2.0) Calcium Level 9.6 mg/dL (8.5-10.1) Total Bilirubin 0.6 mg/dL (0.2-1.0) Aspartate Amino Transf (AST/SGOT) 21 U/L (15-37) Alanine Aminotransferase (ALT/SGPT) 10 U/L (14-59) Alkaline Phosphatase 79 U/L (46-116) Troponin I Quantitative < 0.017 ng/mL (0.000-0.055) KD-Gpd-Q-Type Natriuretic Peptide 393 pg/mL (0-124) Total Protein 8.4 g/dL (6.4-8.2) Albumin 3.8 g/dL (3.4-5.0) Albumin/Globulin Ratio 0.8 (1.0-1.7) O2 Saturation 88 % (92-99) Arterial Blood pH 7.21 (7.35-7.45) Arterial Blood pCO2 at Patient Temp 143 mmHg (35-46) Arterial Blood pO2 at Patient Temp 54 mmHg (75-108) Arterial Blood HCO3 56 mmol/L (21-28) Arterial Blood Base Excess 21 mmol/L (-3-3) FiO2 40 Influenza Type A Antigen Negative (NEGATIVE) Influenza Type B Antigen Negative (NEGATIVE) Urine Collection Type Unknown Urine Color Yellow Urine Clarity Clear Urine pH 6.0 Urine Specific Howe 1.015 Urine Protein 30 mg/dL (NEG-TRACE) Urine Glucose (UA) Negative mg/dL (NEG) Urine Ketones (Stick) 40 mg/dL (NEG) Urine Blood Negative (NEG) Urine Nitrite Negative (NEG) Urine Bilirubin Negative (NEG) Urine Urobilinogen Dipstick 0.2 mg/dL (0.2 mg/dL) Urine Leukocyte Esterase Negative (NEG) Urine RBC 3-5 /HPF (0-2) Urine WBC 1-4 /HPF (0-4) Urine Squamous Epithelial Cells Few /LPF Urine Amorphous Sediment Present /HPF Urine Bacteria 0 /HPF (0-FEW) Urine Granular Casts Occasional /HPF Urine Mucus Slight /LPF Test 09/23/18 01:40 09/23/18 03:00 09/23/18 06:27 09/23/18 09:25 Lactic Acid Level 5.0 mmol/L (0.4-2.0) 3.0 mmol/L (0.4-2.0) Nasal Screen MRSA (PCR) Negative (Negative) White Blood Count 4.3 x10^3/uL (4.0-11.0) Red Blood Count 3.45 x10^6/uL (3.50-5.40) Hemoglobin 10.6 g/dL (12.0-15.5) Hematocrit 32.9 % (36.0-47.0) Mean Corpuscular Volume 95 fL (79-100) Mean Corpuscular Hemoglobin 31 pg (25-35) Mean Corpuscular Hemoglobin Concent 32 g/dL (31-37) Red Cell Distribution Width 15.7 % (11.5-14.5) Platelet Count 131 x10^3/uL (140-400) Neutrophils (%) (Auto) 80 % (31-73) Lymphocytes (%) (Auto) 16 % (24-48) Monocytes (%) (Auto) 3 % (0-9) Eosinophils (%) (Auto) 0 % (0-3) Basophils (%) (Auto) 0 % (0-3) Neutrophils # (Auto) 3.4 x10^3uL (1.8-7.7) Lymphocytes # (Auto) 0.7 x10^3/uL (1.0-4.8) Monocytes # (Auto) 0.1 x10^3/uL (0.0-1.1) Eosinophils # (Auto) 0.0 x10^3/uL (0.0-0.7) Basophils # (Auto) 0.0 x10^3/uL (0.0-0.2) Sodium Level 140 mmol/L (136-145) Potassium Level 4.7 mmol/L (3.5-5.1) Chloride Level 94 mmol/L (98-107) Carbon Dioxide Level 33 mmol/L (21-32) Anion Gap 13 (6-14) Blood Urea Nitrogen 25 mg/dL (7-20) Creatinine 1.0 mg/dL (0.6-1.0) Estimated GFR (Cockcroft-Gault) 57.1 Glucose Level 121 mg/dL (70-99) Calcium Level 8.6 mg/dL (8.5-10.1) O2 Saturation 100 % (92-99) Arterial Blood pH 7.53 (7.35-7.45) Arterial Blood pCO2 at Patient Temp 35 mmHg (35-46) Arterial Blood pO2 at Patient Temp 165 mmHg (75-108) Arterial Blood HCO3 29 mmol/L (21-28) Arterial Blood Base Excess 6 mmol/L (-3-3) FiO2 40 Test 09/23/18 09:26 09/24/18 06:00 09/24/18 08:10 09/24/18 10:15 Bedside Arterial pH 7.53 (7.35-7.45) Arterial Blood pH (Temp corrected) 7.53 Bedside Arterial pCO2 35 mmHg (35-45) Arterial Blood pCO2 (Temp correct) 34 mmHg Bedside Arterial pO2 165 mmHg (75-100) Arterial Blood pO2 (Temp corrected) 163 mmHg Arterial Blood HCO3 29 mmol/L (21-28) 33 mmol/L (21-28) 34 mmol/L (21-28) Bedside Arterial Blood O2 Sat 100 % (95-99) Bedside FiO2 40.0 White Blood Count 5.8 x10^3/uL (4.0-11.0) Red Blood Count 2.75 x10^6/uL (3.50-5.40) Hemoglobin 8.5 g/dL (12.0-15.5) Hematocrit 25.3 % (36.0-47.0) Mean Corpuscular Volume 92 fL (79-100) Mean Corpuscular Hemoglobin 31 pg (25-35) Mean Corpuscular Hemoglobin Concent 33 g/dL (31-37) Red Cell Distribution Width 16.5 % (11.5-14.5) Platelet Count 119 x10^3/uL (140-400) Neutrophils (%) (Auto) 67 % (31-73) Lymphocytes (%) (Auto) 20 % (24-48) Monocytes (%) (Auto) 12 % (0-9) Eosinophils (%) (Auto) 1 % (0-3) Basophils (%) (Auto) 0 % (0-3) Neutrophils # (Auto) 3.9 x10^3uL (1.8-7.7) Lymphocytes # (Auto) 1.2 x10^3/uL (1.0-4.8) Monocytes # (Auto) 0.7 x10^3/uL (0.0-1.1) Eosinophils # (Auto) 0.0 x10^3/uL (0.0-0.7) Basophils # (Auto) 0.0 x10^3/uL (0.0-0.2) Sodium Level 140 mmol/L (136-145) Potassium Level 3.6 mmol/L (3.5-5.1) Chloride Level 102 mmol/L (98-107) Carbon Dioxide Level 34 mmol/L (21-32) Anion Gap 4 (6-14) Blood Urea Nitrogen 22 mg/dL (7-20) Creatinine 1.1 mg/dL (0.6-1.0) Estimated GFR (Cockcroft-Gault) 51.2 BUN/Creatinine Ratio 20 (6-20) Glucose Level 145 mg/dL (70-99) Calcium Level 8.0 mg/dL (8.5-10.1) Total Bilirubin 0.6 mg/dL (0.2-1.0) Aspartate Amino Transf (AST/SGOT) 18 U/L (15-37) Alanine Aminotransferase (ALT/SGPT) 8 U/L (14-59) Alkaline Phosphatase 42 U/L (46-116) Total Protein 5.2 g/dL (6.4-8.2) Albumin 2.5 g/dL (3.4-5.0) Albumin/Globulin Ratio 0.9 (1.0-1.7) O2 Saturation 97 % (92-99) 97 % (92-99) Arterial Blood pH 7.51 (7.35-7.45) 7.44 (7.35-7.45) Arterial Blood pCO2 at Patient Temp 43 mmHg (35-46) 50 mmHg (35-46) Arterial Blood pO2 at Patient Temp 88 mmHg (75-108) 96 mmHg (75-108) Arterial Blood Base Excess 9 mmol/L (-3-3) 8 mmol/L (-3-3) FiO2 35 35 Laboratory Tests Test 09/24/18 06:00 09/24/18 08:10 09/24/18 10:15 White Blood Count 5.8 x10^3/uL (4.0-11.0) Red Blood Count 2.75 x10^6/uL (3.50-5.40) Hemoglobin 8.5 g/dL (12.0-15.5) Hematocrit 25.3 % (36.0-47.0) Mean Corpuscular Volume 92 fL (79-100) Mean Corpuscular Hemoglobin 31 pg (25-35) Mean Corpuscular Hemoglobin Concent 33 g/dL (31-37) Red Cell Distribution Width 16.5 % (11.5-14.5) Platelet Count 119 x10^3/uL (140-400) Neutrophils (%) (Auto) 67 % (31-73) Lymphocytes (%) (Auto) 20 % (24-48) Monocytes (%) (Auto) 12 % (0-9) Eosinophils (%) (Auto) 1 % (0-3) Basophils (%) (Auto) 0 % (0-3) Neutrophils # (Auto) 3.9 x10^3uL (1.8-7.7) Lymphocytes # (Auto) 1.2 x10^3/uL (1.0-4.8) Monocytes # (Auto) 0.7 x10^3/uL (0.0-1.1) Eosinophils # (Auto) 0.0 x10^3/uL (0.0-0.7) Basophils # (Auto) 0.0 x10^3/uL (0.0-0.2) Sodium Level 140 mmol/L (136-145) Potassium Level 3.6 mmol/L (3.5-5.1) Chloride Level 102 mmol/L (98-107) Carbon Dioxide Level 34 mmol/L (21-32) Anion Gap 4 (6-14) Blood Urea Nitrogen 22 mg/dL (7-20) Creatinine 1.1 mg/dL (0.6-1.0) Estimated GFR (Cockcroft-Gault) 51.2 BUN/Creatinine Ratio 20 (6-20) Glucose Level 145 mg/dL (70-99) Calcium Level 8.0 mg/dL (8.5-10.1) Total Bilirubin 0.6 mg/dL (0.2-1.0) Aspartate Amino Transf (AST/SGOT) 18 U/L (15-37) Alanine Aminotransferase (ALT/SGPT) 8 U/L (14-59) Alkaline Phosphatase 42 U/L (46-116) Total Protein 5.2 g/dL (6.4-8.2) Albumin 2.5 g/dL (3.4-5.0) Albumin/Globulin Ratio 0.9 (1.0-1.7) O2 Saturation 97 % (92-99) 97 % (92-99) Arterial Blood pH 7.51 (7.35-7.45) 7.44 (7.35-7.45) Arterial Blood pCO2 at Patient Temp 43 mmHg (35-46) 50 mmHg (35-46) Arterial Blood pO2 at Patient Temp 88 mmHg (75-108) 96 mmHg (75-108) Arterial Blood HCO3 33 mmol/L (21-28) 34 mmol/L (21-28) Arterial Blood Base Excess 9 mmol/L (-3-3) 8 mmol/L (-3-3) FiO2 35 35 Medications Active Scripts Medications Dose Route/Sig Max Daily Dose Days Date Category Mirtazapine 15 Mg Tablet 15 Mg PO DAILY 09/23/18 Reported Escitalopram Oxalate 5 Mg Tablet 5 Mg PO DAILY 09/23/18 Reported Metoprolol Succinate ( Xl ) (Metoprolol Succinate) 25 Mg Tab.er.24h 1 Tab PO DAILY 09/23/18 Reported Omeprazole 40 Mg Capsule.dr 40 Mg PO DAILY 09/23/18 Reported Albuterol Sulfate Neb Soln (Albuterol Sulfate) 2.5 Mg/3 Ml Vial.neb 2.5 Mg NEB PRN 02/01/15 Reported Proair Hfa Inhaler (Albuterol Sulfate) 8.5 Gm Hfa.aer.ad 2 Puff IH PRN Q4-6HRS PRN 02/01/15 Reported Omeprazole 20 Mg Capsule.dr 1 Cap PO DAILY 02/01/15 Reported Impression . 1. [id number] hypercapnic respiratory failure secondary to acute exacerbation of chronic obstructive pulmonary disease, toxic encephalopathy related to severe hypercarbia and likely a lower respiratory tract infection. 2. High-grade fever. Influenza screen negative. No definite consolidation on the chest x-ray, but likely acute bronchitis, but we will look for other sources of infection as well. 3. Suspect underlying severe chronic obstructive pulmonary disease. 4. Lactic acidosis related to early sepsis, improving with hydration. 5. Hypotension, probably related to dehydration and post-intubation. Responded to IV fluids. RECOMMENDATION: 1. Continue with present assist control mode and make necessary adjustment based on ABGs. 2. Empiric antibiotic. 3. Follow cultures including blood culture, sputum cultures and urine cultures. 4. The patient has been placed on Tamiflu and we will monitor. 5. Broad-spectrum antibiotics. 6. DVT prophylaxis with Lovenox. 7. Stress ulcer prophylaxis with PPI. 8. I will monitor the fever pattern. 9. We may consider weaning off sedation in next 24 hours and assess for a weaning trial. 10. Discussed with RN and RT. We will follow along with you. Critical care time 40 minutes. Plan . 1. CPAP trial, likely extubation today 2. Empiric antibiotic. 3. Follow cultures including blood culture, sputum cultures and urine cultures. 4. The patient has been placed on Tamiflu and we will monitor. 5. Broad-spectrum antibiotics. 6. DVT prophylaxis with Lovenox. 7. Stress ulcer prophylaxis with PPI. 8. I will monitor the fever pattern. 9. Discussed with RN and RT. We will follow along with you. SHAYLEE RUSH MD Sep 24, 2018 11:11
--- NOTE | 2018-09-24 11:36 | RAD ---
PORTABLE CHEST 1V Clinical indications: RESPIRATORY FAILURE COMPARISON: September 22, 2018. Findings: There've been no interval tube or line changes. No acute lung infiltrate or pleural effusion or pulmonary edema or lung mass or pneumothorax is seen. The heart size, pulmonary vasculature, mediastinum and both eriberto are unremarkable. Impression: No acute radiographic abnormality is seen. Electronically signed by: Don Lopez MD (09/24/2018 11:32 AM) [facility]
[2018-09-24] MEDS: VANCOMYCIN PER PHARMACY MC PRN (14:24)
[2018-09-24] MEDS: ENOXAPARIN 30 MG/0.3 ML SYRINGE. SQ SCH (20:58)
[2018-09-25] VITALS (24 sets, daily range): BP systolic 106–156; BP diastolic 62–93
[2018-09-25 04:27] LABS: CREATININE 0.8 mg/dL (0.6-1.0); GFR 73.9
[2018-09-25 04:33] LABS: VANC TR 9.2 mcg/mL (10.0-20.0)
[2018-09-25] MEDS ORDERED: VANCOMYCIN 500 MG in IV DEXTROSE 5% 100ML 100 ML IV SCH ×2 (04:45→05:00)
[2018-09-25] MEDS: VANCOMYCIN PER PHARMACY MC PRN ×2 (06:08→06:12)
[2018-09-25] MEDS: PIPERACILLIN/TAZOBACTAM 2.25 GM in IV NORMAL SALINE 50ML 50 ML IV SCH ×4 (06:12→23:57)
[2018-09-25 07:18] LABS: CALCIUM 8.2 mg/dL (8.5-10.1); CREATININE 0.8 mg/dL (0.6-1.0); GFR 73.9; POTASSIUM 3.8 mmol/L (3.5-5.1)
[2018-09-25] MEDS: VANCOMYCIN 500 MG in IV DEXTROSE 5% 100ML 100 ML IV SCH (07:21)
[2018-09-25] MEDS: IV NORMAL SALINE 1000ML BAG 1,000 ML IV SCH ×2 (07:21→07:52)
[2018-09-25 07:25] LABS: ALBUMIN 2.6 g/dL (3.4-5.0); ALBUMIN/GLOBULIN RATIO 0.8 (1.0-1.7); TOTAL BILIRUBIN 0.3 mg/dL (0.2-1.0)
[2018-09-25 07:28] LABS: BASO % 0 % (0-3); EOS # 0.1 x10^3/uL (0.0-0.7); EOS % 1 % (0-3); HEMATOCRIT 32.6 % (36.0-47.0); HEMOGLOBIN 10.3 g/dL (12.0-15.5); LYMPH # 1.4 x10^3/uL (1.0-4.8); LYMPH % 17 % (24-48); MEAN CORPUSCULAR HEMOGLOBIN 31 pg (25-35); MEAN CORPUSCULAR HGB CONC 32 g/dL (31-37); MEAN CORPUSCULAR VOLUME 97 fL (79-100); MONO # 0.9 x10^3/uL (0.0-1.1); MONO % 11 % (0-9); NEUT % 71 % (31-73); PLATELET COUNT 140 x10^3/uL (140-400); RED BLOOD COUNT 3.37 x10^6/uL (3.50-5.40); RED CELL DISTRIBUTION WIDTH 17.4 % (11.5-14.5); WHITE BLOOD COUNT 8.4 x10^3/uL (4.0-11.0)
[2018-09-25 07:34] LABS: BASE EXCESS ABG 7 mmol/L (-3-3); HCO3 ABG 42 mmol/L (21-28); PO2 ABG 90 mmHg (75-108); SAT O2 ABG 95 % (92-99)
--- NOTE | 2018-09-25 07:37 | PDOC ---
Infectious Disease Note Subjective: Subjective Pt got extubated yesterday this am is lethargic on ventimask arousable no fever, denies any headache, abdo pain, n/v/d ROS: ROS Negative except for above D/W RN. Vital Signs: Vital Signs Vital Signs Date Time Temp Pulse Resp B/P (MAP) Pulse Ox O2 Delivery O2 Flow Rate FiO2 09/25/18 07:00 102 20 133/70 (91) 96 Venturi Mask 15.0 09/25/18 04:00 97.7 97.7 Physical Exam: PHYSICAL EXAM GENERAL: lethargic, arousable, on ventimask HEENT: no icterus. Pupils equal, reactive. No thrush. NECK: Supple. LUNGS: Decreased breath sounds at bases, otherwise clear. HEART: S1, S2, tachycardia. ABDOMEN: Soft, nontender, nondistended, no rebound, no grimacing on deep palpation. EXTREMITIES: No edema, no cyanosis, no clubbing. NEUROLOGIC: Moves all four extremities PSYCHIATRIC: alert awake cooperative DERMATOLOGIC: Warm, dry, no generalized rash. Medications: Inpatient Meds: Current Medications Medications (Trade) Dose Ordered Sig/Darling Start Time Stop Time Status Last Admin Dose Admin Albuterol Sulfate (Ventolin Neb Soln) 10 mg 1X ONCE 09/22/18 22:00 09/22/18 22:01 DC 09/22/18 21:36 10 MG Albuterol/ Ipratropium (Duoneb) 3 ml RTQID 09/23/18 12:00 09/24/18 20:09 3 ML Enoxaparin Sodium (Lovenox 30mg Syringe) 30 mg QHS 09/23/18 01:30 09/24/18 20:58 30 MG Enoxaparin Sodium (Lovenox 40mg Syringe) 40 mg Q24H 09/24/18 08:00 Cancel Enoxaparin Sodium (Lovenox Per Pharmacy Prophylaxis Dosing) 1 each PRN DAILY PRN 09/23/18 01:30 09/23/18 07:24 DC Etomidate (Amidate) 20 mg 1X ONCE 09/22/18 22:45 09/22/18 22:46 DC 09/22/18 22:05 20 MG Ipratropium Othello (Atrovent) 0.5 mg 1X ONCE 09/22/18 22:00 09/22/18 22:01 DC 09/22/18 21:36 0.5 MG Lorazepam (Ativan) 2 mg 1X ONCE 09/22/18 22:00 09/22/18 22:01 DC 09/22/18 21:38 2 MG Methylprednisolone Sodium Succinate (SOLU-Medrol 125MG VIAL) 125 mg 1X ONCE 09/22/18 22:00 09/22/18 22:01 DC 09/22/18 21:38 125 MG Midazolam HCl 100 ml @ 5 mls/hr CONT PRN 09/23/18 01:30 09/23/18 17:47 5 MLS/HR Oseltamivir Phosphate (Tamiflu Suspension) 30 mg BID 09/23/18 10:30 09/28/18 10:29 09/23/18 21:06 30 MG Pantoprazole Sodium (PROTONIX VIAL for IV PUSH) 40 mg DAILYAC 09/23/18 07:30 09/24/18 07:43 40 MG Piperacillin Sod/ Tazobactam Sod (Zosyn Per Pharmacy) 1 each PRN DAILY PRN 09/23/18 03:30 09/23/18 07:25 DC Piperacillin Sod/ Tazobactam Sod 2.25 gm/Sodium Chloride 50 ml @ 100 mls/hr Q6HRS 09/23/18 05:00 09/25/18 06:12 100 MLS/HR Propofol 100 ml @ 0 mls/hr CONT PRN 09/22/18 22:45 09/22/18 22:10 0.6 MLS/HR Sodium Chloride 250 ml @ 250 mls/hr 1X ONCE 09/23/18 01:45 09/23/18 02:44 DC 09/23/18 00:30 250 MLS/HR Vancomycin HCl (Vanco Per Pharmacy) 1 each PRN DAILY PRN 09/23/18 03:30 09/25/18 06:12 1 EACH Vancomycin HCl (Vancomycin Trough Level) 1 each 1X ONCE 09/25/18 22:30 09/25/18 22:31 Vancomycin HCl 500 mg/Dextrose 100 ml @ 100 mls/hr Q18H 09/25/18 05:00 09/25/18 04:57 100 MLS/HR Vancomycin HCl 1 gm/Sodium Chloride 250 ml @ 250 mls/hr 1X ONCE 09/23/18 04:00 09/23/18 04:59 DC 09/23/18 03:41 250 MLS/HR Vecuronium Othello (Norcuron Bolus) 10 mg 1X ONCE 09/22/18 22:45 09/22/18 22:46 DC 09/22/18 22:05 10 MG Labs: Lab Laboratory Tests Test 09/24/18 08:10 09/24/18 10:15 09/25/18 03:25 O2 Saturation 97 % (92-99) 97 % (92-99) Arterial Blood pH 7.51 (7.35-7.45) 7.44 (7.35-7.45) Arterial Blood pCO2 at Patient Temp 43 mmHg (35-46) 50 mmHg (35-46) Arterial Blood pO2 at Patient Temp 88 mmHg (75-108) 96 mmHg (75-108) Arterial Blood HCO3 33 mmol/L (21-28) 34 mmol/L (21-28) Arterial Blood Base Excess 9 mmol/L (-3-3) 8 mmol/L (-3-3) FiO2 35 35 Sodium Level 143 mmol/L (136-145) Potassium Level 3.8 mmol/L (3.5-5.1) Chloride Level 105 mmol/L (98-107) Carbon Dioxide Level 37 mmol/L (21-32) Anion Gap 1 (6-14) Blood Urea Nitrogen 13 mg/dL (7-20) Creatinine 0.8 mg/dL (0.6-1.0) Estimated GFR (Cockcroft-Gault) 73.9 BUN/Creatinine Ratio 16 (6-20) Glucose Level 97 mg/dL (70-99) Calcium Level 8.2 mg/dL (8.5-10.1) Total Bilirubin 0.3 mg/dL (0.2-1.0) Aspartate Amino Transf (AST/SGOT) 19 U/L (15-37) Alanine Aminotransferase (ALT/SGPT) 8 U/L (14-59) Alkaline Phosphatase 47 U/L (46-116) Total Protein 6.0 g/dL (6.4-8.2) Albumin 2.6 g/dL (3.4-5.0) Albumin/Globulin Ratio 0.8 (1.0-1.7) Vancomycin Level Trough 9.2 mcg/mL (10.0-20.0) Vancomycin Last Dose Date [id number] Vancomycin Last Dose Time 0400 Micro C/S neg so far CT Brain IMPRESSION: There is bilateral inferior frontal lobe hypoattenuation, left worse than right. There is no appreciable volume loss. Considerations include subacute contusion or infarct or nonspecific cerebral edema. If diagnosis is not known recommend MR brain for further evaluation. Objective: Assessment: Fever source likely respiratory including viral vs other, flu screen neg,resolved Acute resp failure s/p intubation now extubated Anemia/thrombocytopenia lactic acidosis hypotension requiring pressors Encephalopathy resolved COPD History of bronchiectasis. Plan: Plan of Care DC Vanc Cont Zosyn f/u labs and abg this am maintain aspiration precautions empiric tamiflu cont supportive care Follow up cultures. Discussed with RN. EMPERATRIZ FOWLER MD Sep 25, 2018 07:37
[2018-09-25] MEDS: IPRATRPIUM/ALBUTEROL 0.5/2.5MG 3 ML NEBU. NEB SCH ×4 (07:49→20:16)
[2018-09-25] MEDS: PANTOPRAZOLE IV PUSH 40 MG VIAL. IVP SCH (07:52)
[2018-09-25] MEDS: OSELTAMIVIR 30 MG/5 ML ORAL.SUSP. NG SCH ×2 (07:52→20:24)
[2018-09-25 07:56] LABS: PCO2 ABG 151 mmHg (35-46)
[2018-09-25 07:57] LABS: FIO2 ABG 50
--- NOTE | 2018-09-25 08:22 | RAD ---
PORTABLE CHEST 1V Clinical Indication: SHORTNESS OF AIR Comparison: AP chest, prior day. Findings: Endotracheal and enteric tubes have been removed. There is mediastinal shift to the right. There is truncation of the right mainstem bronchus which could be due to mucous plugging. There is volume loss in the right lung base. There is a round bubble of air within opacity in the right lung base of uncertain etiology. There is no pneumothorax. The left lung is clear. IMPRESSION: 1. Endotracheal and enteric tubes have been removed. 2. There is new right lung volume loss with mediastinal shift to the right. There is truncation of the right mainstem bronchus, etiology could be mucus plugging. Electronically signed by: Franco Diaz MD (09/25/2018 8:18 AM) [id number]
[2018-09-25 09:36] LABS: BASE EXCESS ABG 8 mmol/L (-3-3); HCO3 ABG 40 mmol/L (21-28); PO2 ABG 82 mmHg (75-108); SAT O2 ABG 95 % (92-99)
--- NOTE | 2018-09-25 10:07 | PDOC ---
PROGRESS NOTES Chief Complaint Chief Complaint Severe hypercapnic/hypoxic respiratory failure, intubated for C02 (>200s) EXTBATED 09/24/18 Heavy smoker Undernourished, cachexia BMI 13 Low grade Temperatures, sepsis with no organ dysfunction History of Present Illness History of Present Illness Extubated 09/24/18 and ABG postextubation pH 7.0, with a PCO2 150 - was on Ventimask Will need a BiPAP and now is on BiPAP, seen in icu Breathing better on BIPAP Heavy smoker Plan: BiPAP Keep in ICU Needs to quit smoking or at start taper Keep NPO (or maybe liquid diet when off bipap) and IVF for now - pending respi status Intubated for about 48 hrs Vitals Vitals Vital Signs Date Time Temp Pulse Resp B/P (MAP) Pulse Ox O2 Delivery O2 Flow Rate FiO2 09/25/18 09:00 99 24 114/68 (83) 98 BiPAP/CPAP 09/25/18 08:00 97.0 97.0 09/25/18 07:00 15.0 Physical Exam Physical Exam GENERAL: lethargic, arousable, on ventimask HEENT: no icterus. Pupils equal, reactive. No thrush. NECK: Supple. LUNGS: Decreased breath sounds at bases, otherwise clear. HEART: S1, S2, tachycardia. ABDOMEN: Soft, nontender, nondistended, no rebound, no grimacing on deep palpation. EXTREMITIES: No edema, no cyanosis, no clubbing. NEUROLOGIC: Moves all four extremities PSYCHIATRIC: alert awake cooperative DERMATOLOGIC: Warm, dry, no generalized rash. General: No acute distress, Other (undernourished, minimal subcutaneous tissue , BMI of 13) Heart: Regular rate Lungs: Clear Abdomen: Normal bowel sounds, Soft, No tenderness, No hepatosplenomegaly, No masses Extremities: No clubbing, No cyanosis, No edema, Normal pulses, No tenderness/ swelling Skin: No rashes, No breakdown, No significant lesion Labs LABS Laboratory Tests Test 09/24/18 10:15 09/25/18 03:25 09/25/18 07:30 O2 Saturation 97 % (92-99) 95 % (92-99) Arterial Blood pH 7.44 (7.35-7.45) 7.06 (7.35-7.45) Arterial Blood pCO2 at Patient Temp 50 mmHg (35-46) 151 mmHg (35-46) Arterial Blood pO2 at Patient Temp 96 mmHg (75-108) 90 mmHg (75-108) Arterial Blood HCO3 34 mmol/L (21-28) 42 mmol/L (21-28) Arterial Blood Base Excess 8 mmol/L (-3-3) 7 mmol/L (-3-3) FiO2 35 50 White Blood Count 8.4 x10^3/uL (4.0-11.0) Red Blood Count 3.37 x10^6/uL (3.50-5.40) Hemoglobin 10.3 g/dL (12.0-15.5) Hematocrit 32.6 % (36.0-47.0) Mean Corpuscular Volume 97 fL (79-100) Mean Corpuscular Hemoglobin 31 pg (25-35) Mean Corpuscular Hemoglobin Concent 32 g/dL (31-37) Red Cell Distribution Width 17.4 % (11.5-14.5) Platelet Count 140 x10^3/uL (140-400) Neutrophils (%) (Auto) 71 % (31-73) Lymphocytes (%) (Auto) 17 % (24-48) Monocytes (%) (Auto) 11 % (0-9) Eosinophils (%) (Auto) 1 % (0-3) Basophils (%) (Auto) 0 % (0-3) Neutrophils # (Auto) 6.0 x10^3uL (1.8-7.7) Lymphocytes # (Auto) 1.4 x10^3/uL (1.0-4.8) Monocytes # (Auto) 0.9 x10^3/uL (0.0-1.1) Eosinophils # (Auto) 0.1 x10^3/uL (0.0-0.7) Basophils # (Auto) 0.0 x10^3/uL (0.0-0.2) Sodium Level 143 mmol/L (136-145) Potassium Level 3.8 mmol/L (3.5-5.1) Chloride Level 105 mmol/L (98-107) Carbon Dioxide Level 37 mmol/L (21-32) Anion Gap 1 (6-14) Blood Urea Nitrogen 13 mg/dL (7-20) Creatinine 0.8 mg/dL (0.6-1.0) Estimated GFR (Cockcroft-Gault) 73.9 BUN/Creatinine Ratio 16 (6-20) Glucose Level 97 mg/dL (70-99) Calcium Level 8.2 mg/dL (8.5-10.1) Total Bilirubin 0.3 mg/dL (0.2-1.0) Aspartate Amino Transf (AST/SGOT) 19 U/L (15-37) Alanine Aminotransferase (ALT/SGPT) 8 U/L (14-59) Alkaline Phosphatase 47 U/L (46-116) Total Protein 6.0 g/dL (6.4-8.2) Albumin 2.6 g/dL (3.4-5.0) Albumin/Globulin Ratio 0.8 (1.0-1.7) Vancomycin Level Trough 9.2 mcg/mL (10.0-20.0) Vancomycin Last Dose Date Vancomycin Last Dose Time 040 Review of Systems Review of Systems SOA, mild cough the rest of ROS 14 point negative Assessment and Plan Assessmemt and Plan Problems Medical Problems: (1) Acute respiratory failure with hypercapnia Status: Acute (2) COPD with acute exacerbation Status: Acute Comment Review of Relevant I have reviewed the following items alexsander (where applicable) has been applied. Labs Laboratory Tests Test 09/24/18 06:00 09/24/18 08:10 09/24/18 10:15 09/25/18 03:25 White Blood Count 5.8 x10^3/uL (4.0-11.0) 8.4 x10^3/uL (4.0-11.0) Red Blood Count 2.75 x10^6/uL (3.50-5.40) 3.37 x10^6/uL (3.50-5.40) Hemoglobin 8.5 g/dL (12.0-15.5) 10.3 g/dL (12.0-15.5) Hematocrit 25.3 % (36.0-47.0) 32.6 % (36.0-47.0) Mean Corpuscular Volume 92 fL (79-100) 97 fL (79-100) Mean Corpuscular Hemoglobin 31 pg (25-35) 31 pg (25-35) Mean Corpuscular Hemoglobin Concent 33 g/dL (31-37) 32 g/dL (31-37) Red Cell Distribution Width 16.5 % (11.5-14.5) 17.4 % (11.5-14.5) Platelet Count 119 x10^3/uL (140-400) 140 x10^3/uL (140-400) Neutrophils (%) (Auto) 67 % (31-73) 71 % (31-73) Lymphocytes (%) (Auto) 20 % (24-48) 17 % (24-48) Monocytes (%) (Auto) 12 % (0-9) 11 % (0-9) Eosinophils (%) (Auto) 1 % (0-3) 1 % (0-3) Basophils (%) (Auto) 0 % (0-3) 0 % (0-3) Neutrophils # (Auto) 3.9 x10^3uL (1.8-7.7) 6.0 x10^3uL (1.8-7.7) Lymphocytes # (Auto) 1.2 x10^3/uL (1.0-4.8) 1.4 x10^3/uL (1.0-4.8) Monocytes # (Auto) 0.7 x10^3/uL (0.0-1.1) 0.9 x10^3/uL (0.0-1.1) Eosinophils # (Auto) 0.0 x10^3/uL (0.0-0.7) 0.1 x10^3/uL (0.0-0.7) Basophils # (Auto) 0.0 x10^3/uL (0.0-0.2) 0.0 x10^3/uL (0.0-0.2) Sodium Level 140 mmol/L (136-145) 143 mmol/L (136-145) Potassium Level 3.6 mmol/L (3.5-5.1) 3.8 mmol/L (3.5-5.1) Chloride Level 102 mmol/L (98-107) 105 mmol/L (98-107) Carbon Dioxide Level 34 mmol/L (21-32) 37 mmol/L (21-32) Anion Gap 4 (6-14) 1 (6-14) Blood Urea Nitrogen 22 mg/dL (7-20) 13 mg/dL (7-20) Creatinine 1.1 mg/dL (0.6-1.0) 0.8 mg/dL (0.6-1.0) Estimated GFR (Cockcroft-Gault) 51.2 73.9 BUN/Creatinine Ratio 20 (6-20) 16 (6-20) Glucose Level 145 mg/dL (70-99) 97 mg/dL (70-99) Calcium Level 8.0 mg/dL (8.5-10.1) 8.2 mg/dL (8.5-10.1) Total Bilirubin 0.6 mg/dL (0.2-1.0) 0.3 mg/dL (0.2-1.0) Aspartate Amino Transf (AST/SGOT) 18 U/L (15-37) 19 U/L (15-37) Alanine Aminotransferase (ALT/SGPT) 8 U/L (14-59) 8 U/L (14-59) Alkaline Phosphatase 42 U/L (46-116) 47 U/L (46-116) Total Protein 5.2 g/dL (6.4-8.2) 6.0 g/dL (6.4-8.2) Albumin 2.5 g/dL (3.4-5.0) 2.6 g/dL (3.4-5.0) Albumin/Globulin Ratio 0.9 (1.0-1.7) 0.8 (1.0-1.7) O2 Saturation 97 % (92-99) 97 % (92-99) Arterial Blood pH 7.51 (7.35-7.45) 7.44 (7.35-7.45) Arterial Blood pCO2 at Patient Temp 43 mmHg (35-46) 50 mmHg (35-46) Arterial Blood pO2 at Patient Temp 88 mmHg (75-108) 96 mmHg (75-108) Arterial Blood HCO3 33 mmol/L (21-28) 34 mmol/L (21-28) Arterial Blood Base Excess 9 mmol/L (-3-3) 8 mmol/L (-3-3) FiO2 35 35 Vancomycin Level Trough 9.2 mcg/mL (10.0-20.0) Vancomycin Last Dose Date [id number] Vancomycin Last Dose Time 399 Test 09/25/18 07:30 O2 Saturation 95 % (92-99) Arterial Blood pH 7.06 (7.35-7.45) Arterial Blood pCO2 at Patient Temp 151 mmHg (35-46) Arterial Blood pO2 at Patient Temp 90 mmHg (75-108) Arterial Blood HCO3 42 mmol/L (21-28) Arterial Blood Base Excess 7 mmol/L (-3-3) FiO2 50 Laboratory Tests Test 09/24/18 10:15 09/25/18 03:25 09/25/18 07:30 O2 Saturation 97 % (92-99) 95 % (92-99) Arterial Blood pH 7.44 (7.35-7.45) 7.06 (7.35-7.45) Arterial Blood pCO2 at Patient Temp 50 mmHg (35-46) 151 mmHg (35-46) Arterial Blood pO2 at Patient Temp 96 mmHg (75-108) 90 mmHg (75-108) Arterial Blood HCO3 34 mmol/L (21-28) 42 mmol/L (21-28) Arterial Blood Base Excess 8 mmol/L (-3-3) 7 mmol/L (-3-3) FiO2 35 50 White Blood Count 8.4 x10^3/uL (4.0-11.0) Red Blood Count 3.37 x10^6/uL (3.50-5.40) Hemoglobin 10.3 g/dL (12.0-15.5) Hematocrit 32.6 % (36.0-47.0) Mean Corpuscular Volume 97 fL (79-100) Mean Corpuscular Hemoglobin 31 pg (25-35) Mean Corpuscular Hemoglobin Concent 32 g/dL (31-37) Red Cell Distribution Width 17.4 % (11.5-14.5) Platelet Count 140 x10^3/uL (140-400) Neutrophils (%) (Auto) 71 % (31-73) Lymphocytes (%) (Auto) 17 % (24-48) Monocytes (%) (Auto) 11 % (0-9) Eosinophils (%) (Auto) 1 % (0-3) Basophils (%) (Auto) 0 % (0-3) Neutrophils # (Auto) 6.0 x10^3uL (1.8-7.7) Lymphocytes # (Auto) 1.4 x10^3/uL (1.0-4.8) Monocytes # (Auto) 0.9 x10^3/uL (0.0-1.1) Eosinophils # (Auto) 0.1 x10^3/uL (0.0-0.7) Basophils # (Auto) 0.0 x10^3/uL (0.0-0.2) Sodium Level 143 mmol/L (136-145) Potassium Level 3.8 mmol/L (3.5-5.1) Chloride Level 105 mmol/L (98-107) Carbon Dioxide Level 37 mmol/L (21-32) Anion Gap 1 (6-14) Blood Urea Nitrogen 13 mg/dL (7-20) Creatinine 0.8 mg/dL (0.6-1.0) Estimated GFR (Cockcroft-Gault) 73.9 BUN/Creatinine Ratio 16 (6-20) Glucose Level 97 mg/dL (70-99) Calcium Level 8.2 mg/dL (8.5-10.1) Total Bilirubin 0.3 mg/dL (0.2-1.0) Aspartate Amino Transf (AST/SGOT) 19 U/L (15-37) Alanine Aminotransferase (ALT/SGPT) 8 U/L (14-59) Alkaline Phosphatase 47 U/L (46-116) Total Protein 6.0 g/dL (6.4-8.2) Albumin 2.6 g/dL (3.4-5.0) Albumin/Globulin Ratio 0.8 (1.0-1.7) Vancomycin Level Trough 9.2 mcg/mL (10.0-20.0) Vancomycin Last Dose Date Vancomycin Last Dose Time 0400 Microbiology 09/23/18 Blood Culture - Preliminary, Resulted NO GROWTH AFTER 2 DAYS Medications Current Medications Methylprednisolone Sodium Succinate (SOLU-Medrol 125MG VIAL) 125 mg 1X ONCE IV Last administered on 09/22/18at 21:38; Start 09/22/18 at 22:00; Stop at 22:01; Status DC Albuterol Sulfate (Ventolin Neb Soln) 10 mg 1X ONCE CONT NEB Last administered on 09/22/18at 21:36; Start 09/22/18 at 22:00; Stop 09/22/18 at 22 :01; Status DC Ipratropium [place] (Atrovent) 0.5 mg 1X ONCE NEB Last administered on at 21:36; Start 09/22/18 at 22:00; Stop 09/22/18 at 22:01; Status DC Lorazepam (Ativan) 2 mg 1X ONCE IV Last administered on 09/22/18at 21:38; Start 09/22/18 at 22:00; Stop 09/22/18 at 22:01; Status DC Propofol 50 ml @ As Directed STK-MED ONCE IV ; Start 09/22/18 at 22:01; Stop 09/22/18 at 22:03; Status DC Etomidate (Amidate) 20 mg STK-MED ONCE IV ; Start 09/22/18 at 22:07; Stop 07/31 at 22:08; Status DC Vecuronium [place] (Norcuron Bolus) 10 mg STK-MED ONCE IV ; Start 09/22/18 at 22:07; Stop 09/22/18 at 22:08; Status DC Etomidate (Amidate) 20 mg 1X ONCE IV Last administered on 09/22/18at 22:05; Start 09/22/18 at 22:45; Stop 09/22/18 at 22:46; Status DC Vecuronium [place] (Norcuron Bolus) 10 mg 1X ONCE IV Last administered on 07/31at 22:05; Start 09/22/18 at 22:45; Stop 09/22/18 at 22:46; Status DC Propofol 100 ml @ 0 mls/hr CONT PRN IV SEE PROTOCOL Last administered on at 22:10; Start 09/22/18 at 22:45 Sodium Chloride 1,000 ml @ 1,000 mls/hr 1X ONCE IV Last administered on 09/23at 01:38; Start 09/23/18 at 01:30; Stop 09/23/18 at 02:29; Status DC Sodium Chloride 1,000 ml @ 1,000 mls/hr 1X ONCE IV Last administered on 09/23at 02:08; Start 09/23/18 at 01:30; Stop 09/23/18 at 02:29; Status DC Sodium Chloride 1,000 ml @ 100 mls/hr Q10H IV Last administered on 09/25/18at 07:52; Start 09/23/18 at 02:30 Enoxaparin Sodium (Lovenox Per Pharmacy Prophylaxis Dosing) 1 each PRN DAILY PRN MC SEE COMMENTS; Start 09/23/18 at 01:30; Stop 09/23/18 at 07:24; Status DC Midazolam HCl 100 ml @ 5 mls/hr CONT PRN IV SEE I/O RECORD Last administered on 09/23/18at 17:47; Start 09/23/18 at 01:30 Enoxaparin Sodium (Lovenox 30mg Syringe) 30 mg QHS SQ Last administered on 09/30at 20:58; Start 09/23/18 at 01:30 Sodium Chloride 250 ml @ 250 mls/hr 1X ONCE IV Last administered on at 00:30; Start 09/23/18 at 01:45; Stop 09/23/18 at 02:44; Status DC Piperacillin Sod/ Tazobactam Sod (Zosyn Per Pharmacy) 1 each PRN DAILY PRN MC SEE COMMENTS; Start 09/23/18 at 03:30; Stop 09/23/18 at 07:25; Status DC Vancomycin HCl (Vanco Per Pharmacy) 1 each PRN DAILY PRN MC SEE COMMENTS Last administered on 09/25/18at 06:12; Start 09/23/18 at 03:30; Stop 09/25/18 at 07 :38; Status DC Vancomycin HCl 1 gm/Sodium Chloride 250 ml @ 250 mls/hr 1X ONCE IV Last administered on 09/23/18at 03:41; Start 09/23/18 at 04:00; Stop 09/23/18 at 04 :59; Status DC Piperacillin Sod/ Tazobactam Sod 2.25 gm/Sodium Chloride 50 ml @ 100 mls/hr Q6HRS IV Last administered on 09/25/18at 06:12; Start 09/23/18 at 05:00 Vancomycin HCl 500 mg/Dextrose 100 ml @ 100 mls/hr Q24H IV Last administered on 09/24/18at 03:57; Start 09/24/18 at 04:00; Stop 09/25/18 at 04:39; Status DC Vancomycin HCl (Vancomycin Trough Level) 1 each 1X ONCE MC Last administered on 09/25/18at 03:30; Start 09/25/18 at 03:30; Stop 09/25/18 at 03:31; Status DC Albuterol/ Ipratropium (Duoneb) 3 ml 1X ONCE NEB Last administered on at 04:20; Start 09/23/18 at 04:30; Stop 09/23/18 at 04:31; Status DC Pantoprazole Sodium (PROTONIX VIAL for IV PUSH) 40 mg DAILYAC IVP Last administered on 09/25/18at 07:52; Start 09/23/18 at 07:30 Enoxaparin Sodium (Lovenox 40mg Syringe) 40 mg Q24H SQ ; Start 09/24/18 at 08: 00; Status Cancel Oseltamivir Phosphate (Tamiflu Suspension) 75 mg BID NG ; Start 09/23/18 at 09: 00; Stop 09/23/18 at 10:25; Status DC Albuterol/ Ipratropium (Duoneb) 3 ml RTQID NEB Last administered on 09/25/18at 07:49; Start 09/23/18 at 12:00 Oseltamivir Phosphate (Tamiflu Suspension) 30 mg BID NG Last administered on at 21:06; Start 09/23/18 at 10:30; Stop 09/28/18 at 10:29 Vancomycin HCl 500 mg/Dextrose 100 ml @ 100 mls/hr Q24H IV ; Start 09/25/18 at 04:45; Stop 09/25/18 at 04:46; Status DC Vancomycin HCl 500 mg/Dextrose 100 ml @ 100 mls/hr Q18H IV Last administered on 09/25/18at 04:57; Start 09/25/18 at 05:00; Stop 09/25/18 at 07:38; Status DC Vancomycin HCl (Vancomycin Trough Level) 1 each 1X ONCE MC ; Start 09/25/18 at 22:30; Stop 09/25/18 at 22:31; Status Cancel Active Scripts Active Reported Mirtazapine 15 Mg Tablet 15 Mg PO DAILY Escitalopram Oxalate 5 Mg Tablet 5 Mg PO DAILY Metoprolol Succinate ( Xl ) (Metoprolol Succinate) 25 Mg Tab.er.24h 1 Tab PO DAILY Omeprazole 40 Mg Capsule. 40 Mg PO DAILY Albuterol Sulfate Neb Soln (Albuterol Sulfate) 2.5 Mg/3 Ml Vial.neb 2.5 Mg NEB PRN Proair Hfa Inhaler (Albuterol Sulfate) 8.5 Gm Hfa.aer.ad 2 Puff IH PRN Q4-6HRS PRN Omeprazole 20 Mg Capsule.dr 1 Cap PO DAILY Vitals/I & O Vital Sign - Last 24 Hours 09/24/18 09/24/18 09/24/18 09/24/18 11:00 11:34 12:00 12:11 Temp 97.7 97.7 Pulse 122 108 Resp 22 26 B/P (MAP) 149/75 (99) 132/71 (91) Pulse Ox 81 92 98 O2 Delivery Venturi Mask BiPAP/CPAP Bi-pap BiPAP/CPAP O2 Flow Rate 15.0 09/24/18 09/24/18 09/24/18 09/24/18 13:00 14:00 15:00 16:00 Temp 97.7 97.7 Pulse 113 112 103 112 Resp 24 20 16 16 B/P (MAP) 147/71 (96) 134/65 (88) 130/66 (87) 117/63 (81) Pulse Ox 95 98 99 90 O2 Delivery Venturi Mask Venturi Mask Nasal Cannula Nasal Cannula O2 Flow Rate 15.0 12.0 5.0 4.0 09/24/18 09/24/18 09/24/18 09/24/18 16:00 16:04 17:00 18:00 Pulse 110 110 Resp 14 18 B/P (MAP) 117/61 (79) 117/63 (81) Pulse Ox 99 99 89 O2 Delivery Nasal Cannula Nasal Cannula Nasal Cannula Nasal Cannula O2 Flow Rate 2.0 3.0 2.0 2.0 09/24/18 09/24/18 09/24/18 09/24/18 19:00 20:00 20:00 20:10 Temp 98.3 98.3 Pulse 114 106 Resp 22 25 B/P (MAP) 128/62 (84) 137/85 (102) Pulse Ox 95 99 97 O2 Delivery Venturi Mask Venturi Mask Venturi Mask Venturi Mask O2 Flow Rate 15.0 15.0 15.0 15.0 09/24/18 09/24/18 09/24/18 09/24/18 21:00 22:00 23:00 23:59 Pulse 108 112 102 Resp 23 21 20 B/P (MAP) 129/68 (88) 136/69 (91) 118/67 (84) Pulse Ox 98 96 100 O2 Delivery Venturi Mask Venturi Mask Venturi Mask Venturi Mask O2 Flow Rate 15.0 15.0 15.0 15.0 12/1309/25/18 09/25/18 09/25/18 00:00 01:00 02:00 03:00 Temp 97.6 97.6 Pulse 100 118 118 114 Resp 20 22 21 21 B/P (MAP) 119/65 (83) 129/62 (84) 133/63 (86) 136/63 (87) Pulse Ox 99 93 93 94 O2 Delivery Venturi Mask Venturi Mask Venturi Mask Venturi Mask O2 Flow Rate 15.0 15.0 15.0 15.0 09/25/18 09/25/18 09/25/18 09/25/18 04:00 04:00 05:00 06:00 Temp 97.7 97.7 Pulse 112 113 112 Resp 19 21 B/P (MAP) 147/71 (96) 137/65 (89) 124/67 (86) Pulse Ox 93 93 94 O2 Delivery Venturi Mask Venturi Mask Venturi Mask Venturi Mask O2 Flow Rate 15.0 15.0 15.0 15.0 09/25/18 09/25/18 09/25/18 09/25/18 07:00 07:51 08:00 08:00 Temp 97.0 97.0 Pulse 102 109 Resp 20 24 B/P (MAP) 133/70 (91) 106/65 (79) Pulse Ox 96 95 95 O2 Delivery Venturi Mask BiPAP/CPAP Bi-pap BiPAP/CPAP O2 Flow Rate 15.0 09/25/18 09:00 Pulse 99 Resp 24 B/P (MAP) 114/68 (83) Pulse Ox 98 O2 Delivery BiPAP/CPAP Intake and Output 09/24/18 09/24/18 09/25/18 15:00 23:00 07:00 Intake Total 200 ml 680 ml 1016 ml Output Total 850 ml 1070 ml 550 ml Balance -650 ml -390 ml 466 ml Nutrition Consultation Dietary Evaluation: Recommendations by RD: Decrease Calorie Intake Comments: REC TF per following: Jevity 1.2@goal rate 35 ml/hr w/100 ml water flushes q4 hrs or flushes per MD Expected Outcomes/Goals: TF initiation/infusion for nutrition needs while pt remains intubated Malnutrition Findings: Body Fat Depletion (Non Severe: Mod to Severe Weight Status: Emaciated ROLY EDMOND MD Sep 25, 2018 10:07
[2018-09-25 10:16] LABS: PCO2 ABG 117 mmHg (35-46)
[2018-09-25] MEDS: AMINO AC 3%/ELECTROLYTE/GLYCER 1,000 ML IV SCH (11:40)
--- NOTE | 2018-09-25 11:51 | PDOC ---
PULMONARY PROGRESS NOTES Subjective extubated yesterday, required BIPAP THIS AM, LETHARGIC, PCO2 150 BACK ON BIPAP, FOLLOWS COMMANDS MUCOUS PLUG RIGHT LUNG Vitals Vital Signs Date Time Temp Pulse Resp B/P (MAP) Pulse Ox O2 Delivery O2 Flow Rate FiO2 09/25/18 11:00 85 24 141/88 (105) 99 BiPAP/CPAP 09/25/18 08:00 97.0 97.0 09/25/18 07:00 15.0 General: No acute distress Lungs: Other (decrease right lung) Cardiovascular: S1 Abdomen: Soft Extremities: No Edema Skin: Warm Labs Laboratory Tests Test 09/24/18 06:00 09/24/18 08:10 09/24/18 10:15 09/25/18 03:25 White Blood Count 5.8 x10^3/uL (4.0-11.0) 8.4 x10^3/uL (4.0-11.0) Red Blood Count 2.75 x10^6/uL (3.50-5.40) 3.37 x10^6/uL (3.50-5.40) Hemoglobin 8.5 g/dL (12.0-15.5) 10.3 g/dL (12.0-15.5) Hematocrit 25.3 % (36.0-47.0) 32.6 % (36.0-47.0) Mean Corpuscular Volume 92 fL (79-100) 97 fL (79-100) Mean Corpuscular Hemoglobin 31 pg (25-35) 31 pg (25-35) Mean Corpuscular Hemoglobin Concent 33 g/dL (31-37) 32 g/dL (31-37) Red Cell Distribution Width 16.5 % (11.5-14.5) 17.4 % (11.5-14.5) Platelet Count 119 x10^3/uL (140-400) 140 x10^3/uL (140-400) Neutrophils (%) (Auto) 67 % (31-73) 71 % (31-73) Lymphocytes (%) (Auto) 20 % (24-48) 17 % (24-48) Monocytes (%) (Auto) 12 % (0-9) 11 % (0-9) Eosinophils (%) (Auto) 1 % (0-3) 1 % (0-3) Basophils (%) (Auto) 0 % (0-3) 0 % (0-3) Neutrophils # (Auto) 3.9 x10^3uL (1.8-7.7) 6.0 x10^3uL (1.8-7.7) Lymphocytes # (Auto) 1.2 x10^3/uL (1.0-4.8) 1.4 x10^3/uL (1.0-4.8) Monocytes # (Auto) 0.7 x10^3/uL (0.0-1.1) 0.9 x10^3/uL (0.0-1.1) Eosinophils # (Auto) 0.0 x10^3/uL (0.0-0.7) 0.1 x10^3/uL (0.0-0.7) Basophils # (Auto) 0.0 x10^3/uL (0.0-0.2) 0.0 x10^3/uL (0.0-0.2) Sodium Level 140 mmol/L (136-145) 143 mmol/L (136-145) Potassium Level 3.6 mmol/L (3.5-5.1) 3.8 mmol/L (3.5-5.1) Chloride Level 102 mmol/L (98-107) 105 mmol/L (98-107) Carbon Dioxide Level 34 mmol/L (21-32) 37 mmol/L (21-32) Anion Gap 4 (6-14) 1 (6-14) Blood Urea Nitrogen 22 mg/dL (7-20) 13 mg/dL (7-20) Creatinine 1.1 mg/dL (0.6-1.0) 0.8 mg/dL (0.6-1.0) Estimated GFR (Cockcroft-Gault) 51.2 73.9 BUN/Creatinine Ratio 20 (6-20) 16 (6-20) Glucose Level 145 mg/dL (70-99) 97 mg/dL (70-99) Calcium Level 8.0 mg/dL (8.5-10.1) 8.2 mg/dL (8.5-10.1) Total Bilirubin 0.6 mg/dL (0.2-1.0) 0.3 mg/dL (0.2-1.0) Aspartate Amino Transf (AST/SGOT) 18 U/L (15-37) 19 U/L (15-37) Alanine Aminotransferase (ALT/SGPT) 8 U/L (14-59) 8 U/L (14-59) Alkaline Phosphatase 42 U/L (46-116) 47 U/L (46-116) Total Protein 5.2 g/dL (6.4-8.2) 6.0 g/dL (6.4-8.2) Albumin 2.5 g/dL (3.4-5.0) 2.6 g/dL (3.4-5.0) Albumin/Globulin Ratio 0.9 (1.0-1.7) 0.8 (1.0-1.7) O2 Saturation 97 % (92-99) 97 % (92-99) Arterial Blood pH 7.51 (7.35-7.45) 7.44 (7.35-7.45) Arterial Blood pCO2 at Patient Temp 43 mmHg (35-46) 50 mmHg (35-46) Arterial Blood pO2 at Patient Temp 88 mmHg (75-108) 96 mmHg (75-108) Arterial Blood HCO3 33 mmol/L (21-28) 34 mmol/L (21-28) Arterial Blood Base Excess 9 mmol/L (-3-3) 8 mmol/L (-3-3) FiO2 35 35 Vancomycin Level Trough 9.2 mcg/mL (10.0-20.0) Vancomycin Last Dose Date [id number] Vancomycin Last Dose Time 399 Test 09/25/18 07:30 09/25/18 08:45 O2 Saturation 95 % (92-99) 95 % (92-99) Arterial Blood pH 7.06 (7.35-7.45) 7.16 (7.35-7.45) Arterial Blood pCO2 at Patient Temp 151 mmHg (35-46) 117 mmHg (35-46) Arterial Blood pO2 at Patient Temp 90 mmHg (75-108) 82 mmHg (75-108) Arterial Blood HCO3 42 mmol/L (21-28) 40 mmol/L (21-28) Arterial Blood Base Excess 7 mmol/L (-3-3) 8 mmol/L (-3-3) FiO2 50 Laboratory Tests Test 09/25/18 03:25 09/25/18 07:30 09/25/18 08:45 White Blood Count 8.4 x10^3/uL (4.0-11.0) Red Blood Count 3.37 x10^6/uL (3.50-5.40) Hemoglobin 10.3 g/dL (12.0-15.5) Hematocrit 32.6 % (36.0-47.0) Mean Corpuscular Volume 97 fL (79-100) Mean Corpuscular Hemoglobin 31 pg (25-35) Mean Corpuscular Hemoglobin Concent 32 g/dL (31-37) Red Cell Distribution Width 17.4 % (11.5-14.5) Platelet Count 140 x10^3/uL (140-400) Neutrophils (%) (Auto) 71 % (31-73) Lymphocytes (%) (Auto) 17 % (24-48) Monocytes (%) (Auto) 11 % (0-9) Eosinophils (%) (Auto) 1 % (0-3) Basophils (%) (Auto) 0 % (0-3) Neutrophils # (Auto) 6.0 x10^3uL (1.8-7.7) Lymphocytes # (Auto) 1.4 x10^3/uL (1.0-4.8) Monocytes # (Auto) 0.9 x10^3/uL (0.0-1.1) Eosinophils # (Auto) 0.1 x10^3/uL (0.0-0.7) Basophils # (Auto) 0.0 x10^3/uL (0.0-0.2) Sodium Level 143 mmol/L (136-145) Potassium Level 3.8 mmol/L (3.5-5.1) Chloride Level 105 mmol/L (98-107) Carbon Dioxide Level 37 mmol/L (21-32) Anion Gap 1 (6-14) Blood Urea Nitrogen 13 mg/dL (7-20) Creatinine 0.8 mg/dL (0.6-1.0) Estimated GFR (Cockcroft-Gault) 73.9 BUN/Creatinine Ratio 16 (6-20) Glucose Level 97 mg/dL (70-99) Calcium Level 8.2 mg/dL (8.5-10.1) Total Bilirubin 0.3 mg/dL (0.2-1.0) Aspartate Amino Transf (AST/SGOT) 19 U/L (15-37) Alanine Aminotransferase (ALT/SGPT) 8 U/L (14-59) Alkaline Phosphatase 47 U/L (46-116) Total Protein 6.0 g/dL (6.4-8.2) Albumin 2.6 g/dL (3.4-5.0) Albumin/Globulin Ratio 0.8 (1.0-1.7) Vancomycin Level Trough 9.2 mcg/mL (10.0-20.0) Vancomycin Last Dose Date Vancomycin Last Dose Time 0400 O2 Saturation 95 % (92-99) 95 % (92-99) Arterial Blood pH 7.06 (7.35-7.45) 7.16 (7.35-7.45) Arterial Blood pCO2 at Patient Temp 151 mmHg (35-46) 117 mmHg (35-46) Arterial Blood pO2 at Patient Temp 90 mmHg (75-108) 82 mmHg (75-108) Arterial Blood HCO3 42 mmol/L (21-28) 40 mmol/L (21-28) Arterial Blood Base Excess 7 mmol/L (-3-3) 8 mmol/L (-3-3) FiO2 50 Medications Active Scripts Medications Dose Route/Sig Max Daily Dose Days Date Category Mirtazapine 15 Mg Tablet 15 Mg PO DAILY 09/23/18 Reported Escitalopram Oxalate 5 Mg Tablet 5 Mg PO DAILY 09/23/18 Reported Metoprolol Succinate ( Xl ) (Metoprolol Succinate) 25 Mg Tab.er.24h 1 Tab PO DAILY 09/23/18 Reported Omeprazole 40 Mg Capsule. 40 Mg PO DAILY 09/23/18 Reported Albuterol Sulfate Neb Soln (Albuterol Sulfate) 2.5 Mg/3 Ml Vial.neb 2.5 Mg NEB PRN 02/01/15 Reported Proair Hfa Inhaler (Albuterol Sulfate) 8.5 Gm Hfa.aer.ad 2 Puff IH PRN Q4-6HRS PRN 02/01/15 Reported Omeprazole 20 Mg Capsule. 1 Cap PO DAILY 02/01/15 Reported Impression . 1. Iqvle-nd-amhqukh hypercapnic respiratory failure secondary to acute exacerbation of chronic obstructive pulmonary disease, toxic encephalopathy related to severe hypercarbia and likely a lower respiratory tract infection. extubated 09/24 . Now back on BIPAP 2. High-grade fever. Influenza screen negative. No definite consolidation on initial chest x-ray, but likely acute bronchitis, but we will look for other sources of infection as well. 3. Suspect underlying severe chronic obstructive pulmonary disease. 4. Lactic acidosis related to early sepsis, 5. Hypotension, probably related to dehydration and post-intubation. Responded to IV fluids. Plan . 1. extubated yesterday, required BIPAP.THIS AM, LETHARGIC, PCO2 150/ BACK ON BIPAP, FOLLOWS COMMANDS MUCOUS PLUG RIGHT LUNG 2. Empiric antibiotic. 3. Follow cultures including blood culture, sputum cultures and urine cultures. 4. The patient has been placed on Tamiflu and we will monitor. 5. Broad-spectrum antibiotics. 6. DVT prophylaxis with Lovenox. 7. Stress ulcer prophylaxis with PPI. 8. I will monitor the fever pattern. 9. Discussed with RN and RT. POOR PROGNOSIS. I WOULD REC PALLIATIVE CARE AND HOME HOSPICE. NOT STABLE FOR BRONCH CCT 30 MIN SHAYLEE RUSH MD Sep 25, 2018 11:51
--- NOTE | 2018-09-25 15:30 | PDOC2 ---
PALLIATIVE CARE Palliative Care Note Palliative Care Consult requested by to address goals of care;End Stage COPD Patient more alert this afternoon. Restless at times. Medical Assessment per Medical Record 1. [id number] hypercapnic respiratory failure secondary to acute exacerbation of chronic obstructive pulmonary disease, toxic encephalopathy related to severe hypercarbia and likely a lower respiratory tract infection. extubated 09/24 . Now back on BIPAP 2. High-grade fever. Influenza screen negative. No definite consolidation on initial chest x-ray, but likely acute bronchitis, but we will look for other sources of infection as well. 3. Suspect underlying severe chronic obstructive pulmonary disease. 4. Lactic acidosis related to early sepsis, 5. Hypotension, probably related to dehydration and post-intubation. Responded to IV fluids. Met with Paul DPOA/Brother. Daughter in . 2 grandchildren. Sister in MVA. Patient has had emotional issues with treatment in the past. Reviewed medical condition as above. States she had indicated to him that she did not want to live this way--BiPap and life support. Reviewed results of CXR today compared to yesterday and likely mucous plugging. Risk of bronchoscopy and sedation discussed. Patient has been on Disability. Lives by herself. Heavy smoker although she has denied this. Discussed options for care: continue current aggressive treatment plan vs limitations set including DNR/DNI; vs DNR/DNI and comfort care. Paul would like to give family opportunity to see her. Requests DNR/DNI. Plan Meeting tomorrow at 1400 --likely changing to comfort care. Reviewed with Frank CALIX. Frank will call Chaya for DNR/DNI orders and plan of care. ARIE RUTHERFORD Sep 25, 2018 15:29
[2018-09-25 15:45] LABS: BASE EXCESS ABG 6 mmol/L (-3-3); HCO3 ABG 31 mmol/L (21-28); PCO2 ABG 46 mmHg (35-46); PO2 ABG 55 mmHg (75-108); SAT O2 ABG 92 % (92-99)
[2018-09-25 15:47] LABS: FIO2 ABG 28
--- NOTE | 2018-09-25 16:38 | RAD ---
PORTABLE CHEST 1V History: soa,mucous plug. Comparison: Earlier today at 7:00 AM. There is slightly improved expansion and aeration of the right lung since the earlier study. There is continued rightward shift of the mediastinum. Round air pocket in the right lung base appears unchanged. 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 The diffusion/consolidation in the right lung base is again seen. No new infiltrate identified in the left lung. IMPRESSION: Overall similar findings as earlier today, but there is slightly improved aeration and expansion of the right lung, particularly upper lobe. Truncation of the right mainstem bronchus persists. Electronically signed by: Mynor Mcneal MD (09/25/2018 4:34 PM) [id number]
[2018-09-25] MEDS: ENOXAPARIN 30 MG/0.3 ML SYRINGE. SQ SCH (20:51)
[2018-09-25] MEDS ORDERED: LIDOCAINE (700MG/PATCH) PATCH. TD PRN (23:00)
[2018-09-26] VITALS (15 sets, daily range): BP systolic 99–156; BP diastolic 65–87
[2018-09-26] MEDS: AMINO AC 3%/ELECTROLYTE/GLYCER 1,000 ML IV SCH (03:25)
[2018-09-26 05:03] LABS: BASO % 1 % (0-3); EOS % 1 % (0-3); HEMATOCRIT 29.6 % (36.0-47.0); HEMOGLOBIN 9.7 g/dL (12.0-15.5); LYMPH # 0.8 x10^3/uL (1.0-4.8); LYMPH % 10 % (24-48); MEAN CORPUSCULAR HEMOGLOBIN 31 pg (25-35); MEAN CORPUSCULAR HGB CONC 33 g/dL (31-37); MEAN CORPUSCULAR VOLUME 94 fL (79-100); MONO # 0.9 x10^3/uL (0.0-1.1); MONO % 11 % (0-9); NEUT # 6.2 x10^3uL (1.8-7.7); NEUT % 78 % (31-73); PLATELET COUNT 113 x10^3/uL (140-400); RED BLOOD COUNT 3.14 x10^6/uL (3.50-5.40); RED CELL DISTRIBUTION WIDTH 16.2 % (11.5-14.5)
[2018-09-26 05:19] LABS: CALCIUM 8.7 mg/dL (8.5-10.1); CREATININE 0.7 mg/dL (0.6-1.0); GFR 86.2; POTASSIUM 3.8 mmol/L (3.5-5.1)
[2018-09-26] MEDS: PIPERACILLIN/TAZOBACTAM 2.25 GM in IV NORMAL SALINE 50ML 50 ML IV SCH ×4 (05:57→23:35)
[2018-09-26] MEDS: PANTOPRAZOLE IV PUSH 40 MG VIAL. IVP SCH (07:39)
--- NOTE | 2018-09-26 07:46 | RAD ---
Indication:SOA, MUCOUS PLUG TECHNIQUE:Portable AP chest X-ray COMPARISON:09/25/2018 FINDINGS: Stable opacification of the right lower lung zone with silhouetting of the diaphragm, loss of right lung volume and mediastinal shift to the right. Opacification of the right lung apex likely secondary to loculated pleural effusion. Left lung is clear. No pneumothorax. Visualized bony thorax is within normal limits. IMPRESSION: Stable consolidation in the right lung base with mediastinal shift to the right suggests atelectasis which may be from endobronchial obstructing mass or mucous plugging. Underlying pneumonia not ruled out. Findings are not significantly changed when compared to previous exam. Electronically signed by: Matti Katz DO (09/26/2018 7:42 AM) [facility]
[2018-09-26] MEDS: IPRATRPIUM/ALBUTEROL 0.5/2.5MG 3 ML NEBU. NEB SCH ×4 (08:04→20:38)
--- NOTE | 2018-09-26 08:34 | PDOC ---
Infectious Disease Note Subjective: Subjective Pt had rt mucus plug on bipap more alert t his am no fever, denies any headache, abdo pain, n/v/d/sore throat ROS: ROS Negative except for above. Vital Signs: Vital Signs Vital Signs Date Time Temp Pulse Resp B/P (MAP) Pulse Ox O2 Delivery O2 Flow Rate FiO2 09/26/18 08:05 96 Venturi Mask 9.0 09/26/18 08:00 98.0 107 22 145/80 (101) 98.0 Physical Exam: PHYSICAL EXAM GENERAL: lethargic, arousable, on ventimask HEENT: no icterus. Pupils equal, reactive. No thrush. NECK: Supple. LUNGS: Decreased breath sounds at bases, otherwise clear. HEART: S1, S2, tachycardia. ABDOMEN: Soft, nontender, nondistended, no rebound, no grimacing on deep palpation. EXTREMITIES: No edema, no cyanosis, no clubbing. NEUROLOGIC: Moves all four extremities PSYCHIATRIC: alert awake cooperative DERMATOLOGIC: Warm, dry, no generalized rash. Medications: Inpatient Meds: Current Medications Medications (Trade) Dose Ordered Sig/Darling Start Time Stop Time Status Last Admin Dose Admin Albuterol Sulfate (Ventolin Neb Soln) 10 mg 1X ONCE 09/22/18 22:00 09/22/18 22:01 DC 09/22/18 21:36 10 MG Albuterol/ Ipratropium (Duoneb) 3 ml RTQID 09/23/18 12:00 09/26/18 08:04 3 ML Amino Acids/ Glycerin/ Electrolytes 1,000 ml @ 60 mls/hr [id number] 09/25/18 11:00 09/26/18 03:25 60 MLS/HR Enoxaparin Sodium (Lovenox 30mg Syringe) 30 mg QHS 09/23/18 01:30 09/25/18 20:51 30 MG Enoxaparin Sodium (Lovenox 40mg Syringe) 40 mg Q24H 09/24/18 08:00 Cancel Enoxaparin Sodium (Lovenox Per Pharmacy Prophylaxis Dosing) 1 each PRN DAILY PRN 09/23/18 01:30 09/23/18 07:24 DC Etomidate (Amidate) 20 mg 1X ONCE 09/22/18 22:45 09/22/18 22:46 DC 09/22/18 22:05 20 MG Ipratropium [place] (Atrovent) 0.5 mg 1X ONCE 09/22/18 22:00 09/22/18 22:01 DC 09/22/18 21:36 0.5 MG Lidocaine (Lidoderm) 1 patch PRN DAILY PRN 09/25/18 23:00 09/25/18 23:24 1 PATCH Lorazepam (Ativan) 2 mg 1X ONCE 09/22/18 22:00 09/22/18 22:01 DC 09/22/18 21:38 2 MG Methylprednisolone Sodium Succinate (SOLU-Medrol 125MG VIAL) 125 mg 1X ONCE 09/22/18 22:00 09/22/18 22:01 DC 09/22/18 21:38 125 MG Midazolam HCl 100 ml @ 5 mls/hr CONT PRN 09/23/18 01:30 09/25/18 10:11 DC 09/23/18 17:47 5 MLS/HR Oseltamivir Phosphate (Tamiflu Suspension) 30 mg BID 09/23/18 10:30 09/28/18 10:29 09/23/18 21:06 30 MG Pantoprazole Sodium (PROTONIX VIAL for IV PUSH) 40 mg DAILYAC 09/23/18 07:30 09/26/18 07:39 40 MG Piperacillin Sod/ Tazobactam Sod (Zosyn Per Pharmacy) 1 each PRN DAILY PRN 09/23/18 03:30 09/23/18 07:25 DC Piperacillin Sod/ Tazobactam Sod 2.25 gm/Sodium Chloride 50 ml @ 100 mls/hr Q6HRS 09/23/18 05:00 09/26/18 05:57 100 MLS/HR Propofol 100 ml @ 0 mls/hr CONT PRN 09/22/18 22:45 09/25/18 10:11 DC 09/22/18 22:10 0.6 MLS/HR Sodium Chloride 250 ml @ 250 mls/hr 1X ONCE 09/23/18 01:45 09/23/18 02:44 DC 09/23/18 00:30 250 MLS/HR Vancomycin HCl (Vanco Per Pharmacy) 1 each PRN DAILY PRN 09/23/18 03:30 09/25/18 07:38 DC 09/25/18 06:12 1 EACH Vancomycin HCl (Vancomycin Trough Level) 1 each 1X ONCE 09/25/18 22:30 09/25/18 22:31 Cancel Vancomycin HCl 500 mg/Dextrose 100 ml @ 100 mls/hr Q18H 09/25/18 05:00 09/25/18 07:38 DC 09/25/18 04:57 100 MLS/HR Vancomycin HCl 1 gm/Sodium Chloride 250 ml @ 250 mls/hr 1X ONCE 09/23/18 04:00 09/23/18 04:59 DC 09/23/18 03:41 250 MLS/HR Vecuronium [place] (Norcuron Bolus) 10 mg 1X ONCE 09/22/18 22:45 09/22/18 22:46 DC 09/22/18 22:05 10 MG Labs: Lab Laboratory Tests Test 09/25/18 08:45 09/25/18 15:35 09/26/18 04:30 O2 Saturation 95 % (92-99) 92 % (92-99) Arterial Blood pH 7.16 (7.35-7.45) 7.45 (7.35-7.45) Arterial Blood pCO2 at Patient Temp 117 mmHg (35-46) 46 mmHg (35-46) Arterial Blood pO2 at Patient Temp 82 mmHg (75-108) 55 mmHg (75-108) Arterial Blood HCO3 40 mmol/L (21-28) 31 mmol/L (21-28) Arterial Blood Base Excess 8 mmol/L (-3-3) 6 mmol/L (-3-3) FiO2 28 White Blood Count 8.0 x10^3/uL (4.0-11.0) Red Blood Count 3.14 x10^6/uL (3.50-5.40) Hemoglobin 9.7 g/dL (12.0-15.5) Hematocrit 29.6 % (36.0-47.0) Mean Corpuscular Volume 94 fL (79-100) Mean Corpuscular Hemoglobin 31 pg (25-35) Mean Corpuscular Hemoglobin Concent 33 g/dL (31-37) Red Cell Distribution Width 16.2 % (11.5-14.5) Platelet Count 113 x10^3/uL (140-400) Neutrophils (%) (Auto) 78 % (31-73) Lymphocytes (%) (Auto) 10 % (24-48) Monocytes (%) (Auto) 11 % (0-9) Eosinophils (%) (Auto) 1 % (0-3) Basophils (%) (Auto) 1 % (0-3) Neutrophils # (Auto) 6.2 x10^3uL (1.8-7.7) Lymphocytes # (Auto) 0.8 x10^3/uL (1.0-4.8) Monocytes # (Auto) 0.9 x10^3/uL (0.0-1.1) Eosinophils # (Auto) 0.0 x10^3/uL (0.0-0.7) Basophils # (Auto) 0.0 x10^3/uL (0.0-0.2) Sodium Level 141 mmol/L (136-145) Potassium Level 3.8 mmol/L (3.5-5.1) Chloride Level 101 mmol/L (98-107) Carbon Dioxide Level 36 mmol/L (21-32) Anion Gap 4 (6-14) Blood Urea Nitrogen 18 mg/dL (7-20) Creatinine 0.7 mg/dL (0.6-1.0) Estimated GFR (Cockcroft-Gault) 86.2 Glucose Level 100 mg/dL (70-99) Calcium Level 8.7 mg/dL (8.5-10.1) Micro C/S neg so far CT Brain IMPRESSION: There is bilateral inferior frontal lobe hypoattenuation, left worse than right. There is no appreciable volume loss. Considerations include subacute contusion or infarct or nonspecific cerebral edema. If diagnosis is not known recommend MR brain for further evaluation. Objective: Assessment: Fever source likely respiratory flu screen neg,resolved Acute resp failure s/p intubation now extubated requiring Bipap and VM, mucus plug Anemia/thrombocytopenia lactic acidosis resolved hypotension requiring pressors,now off pressors Encephalopathy resolved COPD History of bronchiectasis. Plan: Plan of Care Cont Zosyn will dc tamiflu, not been given per RN due to npo cont supportive care Follow up cultures. DNR/DNI Discussed with RN. EMPERATRIZ FOWLER MD Sep 26, 2018 08:34
[2018-09-26] MEDS ORDERED: ACETAMINOPHEN/CODEINE 300/30MG TABLET. PO PRN (08:45)
[2018-09-26] MEDS ORDERED: IBUPROFEN 400 MG TABLET. PO PRN (08:45)
[2018-09-26] MEDS ORDERED: ACETAMINOPHEN 500 MG TABLET PO PRN (08:45)
--- NOTE | 2018-09-26 09:49 | PDOC ---
PROGRESS NOTES Chief Complaint Chief Complaint Severe hypercapnic/hypoxic respiratory failure, intubated for C02 (>200s) EXTBATED 09/24/18 Heavy smoker Undernourished, cachexia BMI 13 Low grade Temperatures, sepsis with no organ dysfunction History of Present Illness History of Present Illness Extubated 09/24/18 Needed BiPAP all throughout yesterday - post extubation first day Now ABGs much better Feels weak, dry lips- so thirsty Plan for palliative meet 2 PM with the family Plan: BiPAP PAlliative meet 2 PM, mentions of comfort care Needs to quit smoking or at start taper Liquid diet ok, barbara plans for comfort care? await [employer] Vitals Vitals Vital Signs Date Time Temp Pulse Resp B/P (MAP) Pulse Ox O2 Delivery O2 Flow Rate FiO2 09/26/18 08:05 96 Venturi Mask 9.0 09/26/18 08:00 98.0 107 22 145/80 (101) 98.0 Physical Exam Physical Exam GENERAL: lethargic, arousable, on ventimask HEENT: no icterus. Pupils equal, reactive. No thrush. NECK: Supple. LUNGS: Decreased breath sounds at bases, otherwise clear. HEART: S1, S2, tachycardia. ABDOMEN: Soft, nontender, nondistended, no rebound, no grimacing on deep palpation. EXTREMITIES: No edema, no cyanosis, no clubbing. NEUROLOGIC: Moves all four extremities PSYCHIATRIC: alert awake cooperative DERMATOLOGIC: Warm, dry, no generalized rash. General: No acute distress, Other (undernourished, minimal subcutaneous tissue , BMI of 13) Heart: Regular rate Lungs: Other (decrease right lung) Abdomen: Normal bowel sounds, Soft, No tenderness, No hepatosplenomegaly, No masses Extremities: No clubbing, No cyanosis, No edema, Normal pulses, No tenderness/ swelling Skin: No rashes, No breakdown, No significant lesion Labs LABS Laboratory Tests Test 09/25/18 15:35 09/26/18 04:30 O2 Saturation 92 % (92-99) Arterial Blood pH 7.45 (7.35-7.45) Arterial Blood pCO2 at Patient Temp 46 mmHg (35-46) Arterial Blood pO2 at Patient Temp 55 mmHg (75-108) Arterial Blood HCO3 31 mmol/L (21-28) Arterial Blood Base Excess 6 mmol/L (-3-3) FiO2 28 White Blood Count 8.0 x10^3/uL (4.0-11.0) Red Blood Count 3.14 x10^6/uL (3.50-5.40) Hemoglobin 9.7 g/dL (12.0-15.5) Hematocrit 29.6 % (36.0-47.0) Mean Corpuscular Volume 94 fL (79-100) Mean Corpuscular Hemoglobin 31 pg (25-35) Mean Corpuscular Hemoglobin Concent 33 g/dL (31-37) Red Cell Distribution Width 16.2 % (11.5-14.5) Platelet Count 113 x10^3/uL (140-400) Neutrophils (%) (Auto) 78 % (31-73) Lymphocytes (%) (Auto) 10 % (24-48) Monocytes (%) (Auto) 11 % (0-9) Eosinophils (%) (Auto) 1 % (0-3) Basophils (%) (Auto) 1 % (0-3) Neutrophils # (Auto) 6.2 x10^3uL (1.8-7.7) Lymphocytes # (Auto) 0.8 x10^3/uL (1.0-4.8) Monocytes # (Auto) 0.9 x10^3/uL (0.0-1.1) Eosinophils # (Auto) 0.0 x10^3/uL (0.0-0.7) Basophils # (Auto) 0.0 x10^3/uL (0.0-0.2) Sodium Level 141 mmol/L (136-145) Potassium Level 3.8 mmol/L (3.5-5.1) Chloride Level 101 mmol/L (98-107) Carbon Dioxide Level 36 mmol/L (21-32) Anion Gap 4 (6-14) Blood Urea Nitrogen 18 mg/dL (7-20) Creatinine 0.7 mg/dL (0.6-1.0) Estimated GFR (Cockcroft-Gault) 86.2 Glucose Level 100 mg/dL (70-99) Calcium Level 8.7 mg/dL (8.5-10.1) Review of Systems Review of Systems Weak, SOA, , the rest of ROS negative or limited Assessment and Plan Assessmemt and Plan Problems Medical Problems: (1) Acute respiratory failure with hypercapnia Status: Acute (2) COPD with acute exacerbation Status: Acute Comment Review of Relevant I have reviewed the following items alexsander (where applicable) has been applied. Labs Laboratory Tests Test 09/24/18 10:15 09/25/18 03:25 09/25/18 07:30 09/25/18 08:45 O2 Saturation 97 % (92-99) 95 % (92-99) 95 % (92-99) Arterial Blood pH 7.44 (7.35-7.45) 7.06 (7.35-7.45) 7.16 (7.35-7.45) Arterial Blood pCO2 at Patient Temp 50 mmHg (35-46) 151 mmHg (35-46) 117 mmHg (35-46) Arterial Blood pO2 at Patient Temp 96 mmHg (75-108) 90 mmHg (75-108) 82 mmHg (75-108) Arterial Blood HCO3 34 mmol/L (21-28) 42 mmol/L (21-28) 40 mmol/L (21-28) Arterial Blood Base Excess 8 mmol/L (-3-3) 7 mmol/L (-3-3) 8 mmol/L (-3-3) FiO2 35 50 White Blood Count 8.4 x10^3/uL (4.0-11.0) Red Blood Count 3.37 x10^6/uL (3.50-5.40) Hemoglobin 10.3 g/dL (12.0-15.5) Hematocrit 32.6 % (36.0-47.0) Mean Corpuscular Volume 97 fL (79-100) Mean Corpuscular Hemoglobin 31 pg (25-35) Mean Corpuscular Hemoglobin Concent 32 g/dL (31-37) Red Cell Distribution Width 17.4 % (11.5-14.5) Platelet Count 140 x10^3/uL (140-400) Neutrophils (%) (Auto) 71 % (31-73) Lymphocytes (%) (Auto) 17 % (24-48) Monocytes (%) (Auto) 11 % (0-9) Eosinophils (%) (Auto) 1 % (0-3) Basophils (%) (Auto) 0 % (0-3) Neutrophils # (Auto) 6.0 x10^3uL (1.8-7.7) Lymphocytes # (Auto) 1.4 x10^3/uL (1.0-4.8) Monocytes # (Auto) 0.9 x10^3/uL (0.0-1.1) Eosinophils # (Auto) 0.1 x10^3/uL (0.0-0.7) Basophils # (Auto) 0.0 x10^3/uL (0.0-0.2) Sodium Level 143 mmol/L (136-145) Potassium Level 3.8 mmol/L (3.5-5.1) Chloride Level 105 mmol/L (98-107) Carbon Dioxide Level 37 mmol/L (21-32) Anion Gap 1 (6-14) Blood Urea Nitrogen 13 mg/dL (7-20) Creatinine 0.8 mg/dL (0.6-1.0) Estimated GFR (Cockcroft-Gault) 73.9 BUN/Creatinine Ratio 16 (6-20) Glucose Level 97 mg/dL (70-99) Calcium Level 8.2 mg/dL (8.5-10.1) Total Bilirubin 0.3 mg/dL (0.2-1.0) Aspartate Amino Transf (AST/SGOT) 19 U/L (15-37) Alanine Aminotransferase (ALT/SGPT) 8 U/L (14-59) Alkaline Phosphatase 47 U/L (46-116) Total Protein 6.0 g/dL (6.4-8.2) Albumin 2.6 g/dL (3.4-5.0) Albumin/Globulin Ratio 0.8 (1.0-1.7) Vancomycin Level Trough 9.2 mcg/mL (10.0-20.0) Vancomycin Last Dose Date [id number] Vancomycin Last Dose Time 399 Test 09/25/18 15:35 09/26/18 04:30 O2 Saturation 92 % (92-99) Arterial Blood pH 7.45 (7.35-7.45) Arterial Blood pCO2 at Patient Temp 46 mmHg (35-46) Arterial Blood pO2 at Patient Temp 55 mmHg (75-108) Arterial Blood HCO3 31 mmol/L (21-28) Arterial Blood Base Excess 6 mmol/L (-3-3) FiO2 28 White Blood Count 8.0 x10^3/uL (4.0-11.0) Red Blood Count 3.14 x10^6/uL (3.50-5.40) Hemoglobin 9.7 g/dL (12.0-15.5) Hematocrit 29.6 % (36.0-47.0) Mean Corpuscular Volume 94 fL (79-100) Mean Corpuscular Hemoglobin 31 pg (25-35) Mean Corpuscular Hemoglobin Concent 33 g/dL (31-37) Red Cell Distribution Width 16.2 % (11.5-14.5) Platelet Count 113 x10^3/uL (140-400) Neutrophils (%) (Auto) 78 % (31-73) Lymphocytes (%) (Auto) 10 % (24-48) Monocytes (%) (Auto) 11 % (0-9) Eosinophils (%) (Auto) 1 % (0-3) Basophils (%) (Auto) 1 % (0-3) Neutrophils # (Auto) 6.2 x10^3uL (1.8-7.7) Lymphocytes # (Auto) 0.8 x10^3/uL (1.0-4.8) Monocytes # (Auto) 0.9 x10^3/uL (0.0-1.1) Eosinophils # (Auto) 0.0 x10^3/uL (0.0-0.7) Basophils # (Auto) 0.0 x10^3/uL (0.0-0.2) Sodium Level 141 mmol/L (136-145) Potassium Level 3.8 mmol/L (3.5-5.1) Chloride Level 101 mmol/L (98-107) Carbon Dioxide Level 36 mmol/L (21-32) Anion Gap 4 (6-14) Blood Urea Nitrogen 18 mg/dL (7-20) Creatinine 0.7 mg/dL (0.6-1.0) Estimated GFR (Cockcroft-Gault) 86.2 Glucose Level 100 mg/dL (70-99) Calcium Level 8.7 mg/dL (8.5-10.1) Laboratory Tests Test 09/25/18 15:35 09/26/18 04:30 O2 Saturation 92 % (92-99) Arterial Blood pH 7.45 (7.35-7.45) Arterial Blood pCO2 at Patient Temp 46 mmHg (35-46) Arterial Blood pO2 at Patient Temp 55 mmHg (75-108) Arterial Blood HCO3 31 mmol/L (21-28) Arterial Blood Base Excess 6 mmol/L (-3-3) FiO2 28 White Blood Count 8.0 x10^3/uL (4.0-11.0) Red Blood Count 3.14 x10^6/uL (3.50-5.40) Hemoglobin 9.7 g/dL (12.0-15.5) Hematocrit 29.6 % (36.0-47.0) Mean Corpuscular Volume 94 fL (79-100) Mean Corpuscular Hemoglobin 31 pg (25-35) Mean Corpuscular Hemoglobin Concent 33 g/dL (31-37) Red Cell Distribution Width 16.2 % (11.5-14.5) Platelet Count 113 x10^3/uL (140-400) Neutrophils (%) (Auto) 78 % (31-73) Lymphocytes (%) (Auto) 10 % (24-48) Monocytes (%) (Auto) 11 % (0-9) Eosinophils (%) (Auto) 1 % (0-3) Basophils (%) (Auto) 1 % (0-3) Neutrophils # (Auto) 6.2 x10^3uL (1.8-7.7) Lymphocytes # (Auto) 0.8 x10^3/uL (1.0-4.8) Monocytes # (Auto) 0.9 x10^3/uL (0.0-1.1) Eosinophils # (Auto) 0.0 x10^3/uL (0.0-0.7) Basophils # (Auto) 0.0 x10^3/uL (0.0-0.2) Sodium Level 141 mmol/L (136-145) Potassium Level 3.8 mmol/L (3.5-5.1) Chloride Level 101 mmol/L (98-107) Carbon Dioxide Level 36 mmol/L (21-32) Anion Gap 4 (6-14) Blood Urea Nitrogen 18 mg/dL (7-20) Creatinine 0.7 mg/dL (0.6-1.0) Estimated GFR (Cockcroft-Gault) 86.2 Glucose Level 100 mg/dL (70-99) Calcium Level 8.7 mg/dL (8.5-10.1) Microbiology 09/23/18 Blood Culture - Preliminary, Resulted NO GROWTH AFTER 3 DAYS Medications Current Medications Methylprednisolone Sodium Succinate (SOLU-Medrol 125MG VIAL) 125 mg 1X ONCE IV Last administered on 09/22/18at 21:38; Start 09/22/18 at 22:00; Stop at 22:01; Status DC Albuterol Sulfate (Ventolin Neb Soln) 10 mg 1X ONCE CONT NEB Last administered on 09/22/18at 21:36; Start 09/22/18 at 22:00; Stop 09/22/18 at 22 :01; Status DC Ipratropium Martin (Atrovent) 0.5 mg 1X ONCE NEB Last administered on at 21:36; Start 09/22/18 at 22:00; Stop 09/22/18 at 22:01; Status DC Lorazepam (Ativan) 2 mg 1X ONCE IV Last administered on 09/22/18at 21:38; Start 09/22/18 at 22:00; Stop 09/22/18 at 22:01; Status DC Propofol 50 ml @ As Directed STK-MED ONCE IV ; Start 09/22/18 at 22:01; Stop 09/22/18 at 22:03; Status DC Etomidate (Amidate) 20 mg STK-MED ONCE IV ; Start 09/22/18 at 22:07; Stop 07/31 at 22:08; Status DC Vecuronium Martin (Norcuron Bolus) 10 mg STK-MED ONCE IV ; Start 09/22/18 at 22:07; Stop 09/22/18 at 22:08; Status DC Etomidate (Amidate) 20 mg 1X ONCE IV Last administered on 09/22/18at 22:05; Start 09/22/18 at 22:45; Stop 09/22/18 at 22:46; Status DC Vecuronium Martin (Norcuron Bolus) 10 mg 1X ONCE IV Last administered on 07/31at 22:05; Start 09/22/18 at 22:45; Stop 09/22/18 at 22:46; Status DC Propofol 100 ml @ 0 mls/hr CONT PRN IV SEE PROTOCOL Last administered on at 22:10; Start 09/22/18 at 22:45; Stop 09/25/18 at 10:11; Status DC Sodium Chloride 1,000 ml @ 1,000 mls/hr 1X ONCE IV Last administered on 09/23at 01:38; Start 09/23/18 at 01:30; Stop 09/23/18 at 02:29; Status DC Sodium Chloride 1,000 ml @ 1,000 mls/hr 1X ONCE IV Last administered on 09/23at 02:08; Start 09/23/18 at 01:30; Stop 09/23/18 at 02:29; Status DC Sodium Chloride 1,000 ml @ 100 mls/hr Q10H IV Last administered on 09/25/18at 07:52; Start 09/23/18 at 02:30; Stop 09/25/18 at 11:10; Status DC Enoxaparin Sodium (Lovenox Per Pharmacy Prophylaxis Dosing) 1 each PRN DAILY PRN MC SEE COMMENTS; Start 09/23/18 at 01:30; Stop 09/23/18 at 07:24; Status DC Midazolam HCl 100 ml @ 5 mls/hr CONT PRN IV SEE I/O RECORD Last administered on 09/23/18at 17:47; Start 09/23/18 at 01:30; Stop 09/25/18 at 10:11; Status DC Enoxaparin Sodium (Lovenox 30mg Syringe) 30 mg QHS SQ Last administered on at 20:51; Start 09/23/18 at 01:30 Sodium Chloride 250 ml @ 250 mls/hr 1X ONCE IV Last administered on at 00:30; Start 09/23/18 at 01:45; Stop 09/23/18 at 02:44; Status DC Piperacillin Sod/ Tazobactam Sod (Zosyn Per Pharmacy) 1 each PRN DAILY PRN MC SEE COMMENTS; Start 09/23/18 at 03:30; Stop 09/23/18 at 07:25; Status DC Vancomycin HCl (Vanco Per Pharmacy) 1 each PRN DAILY PRN MC SEE COMMENTS Last administered on 09/25/18at 06:12; Start 09/23/18 at 03:30; Stop 09/25/18 at 07 :38; Status DC Vancomycin HCl 1 gm/Sodium Chloride 250 ml @ 250 mls/hr 1X ONCE IV Last administered on 09/23/18at 03:41; Start 09/23/18 at 04:00; Stop 09/23/18 at 04 :59; Status DC Piperacillin Sod/ Tazobactam Sod 2.25 gm/Sodium Chloride 50 ml @ 100 mls/hr Q6HRS IV Last administered on 09/26/18at 05:57; Start 09/23/18 at 05:00 Vancomycin HCl 500 mg/Dextrose 100 ml @ 100 mls/hr Q24H IV Last administered on 09/24/18at 03:57; Start 09/24/18 at 04:00; Stop 09/25/18 at 04:39; Status DC Vancomycin HCl (Vancomycin Trough Level) 1 each 1X ONCE MC Last administered on 09/25/18at 03:30; Start 09/25/18 at 03:30; Stop 09/25/18 at 03:31; Status DC Albuterol/ Ipratropium (Duoneb) 3 ml 1X ONCE NEB Last administered on at 04:20; Start 09/23/18 at 04:30; Stop 09/23/18 at 04:31; Status DC Pantoprazole Sodium (PROTONIX VIAL for IV PUSH) 40 mg DAILYAC IVP Last administered on 09/26/18at 07:39; Start 09/23/18 at 07:30 Enoxaparin Sodium (Lovenox 40mg Syringe) 40 mg Q24H SQ ; Start 09/24/18 at 08: 00; Status Cancel Oseltamivir Phosphate (Tamiflu Suspension) 75 mg BID NG ; Start 09/23/18 at 09: 00; Stop 09/23/18 at 10:25; Status DC Albuterol/ Ipratropium (Duoneb) 3 ml RTQID NEB Last administered on 09/26/18at 08:04; Start 09/23/18 at 12:00 Oseltamivir Phosphate (Tamiflu Suspension) 30 mg BID NG Last administered on at 21:06; Start 09/23/18 at 10:30; Stop 09/26/18 at 09:09; Status DC Vancomycin HCl 500 mg/Dextrose 100 ml @ 100 mls/hr Q24H IV ; Start 09/25/18 at 04:45; Stop 09/25/18 at 04:46; Status DC Vancomycin HCl 500 mg/Dextrose 100 ml @ 100 mls/hr Q18H IV Last administered on 09/25/18at 04:57; Start 09/25/18 at 05:00; Stop 09/25/18 at 07:38; Status DC Vancomycin HCl (Vancomycin Trough Level) 1 each 1X ONCE MC ; Start 09/25/18 at 22:30; Stop 09/25/18 at 22:31; Status Cancel Amino Acids/ Glycerin/ Electrolytes 1,000 ml @ 60 mls/hr [id number] IV Last administered on 09/26/18at 03:25; Start 09/25/18 at 11:00 Lidocaine (Lidoderm) 1 patch PRN DAILY PRN TD PAIN Last administered on at 23:24; Start 09/25/18 at 23:00 Acetaminophen (Tylenol) 500 mg PRN Q6HRS PRN PO MILD PAIN / TEMP; Start at 08:45 Acetaminophen/ Codeine Phosphate (Tylenol #3) 1 tab PRN Q6HRS PRN PO MODERATE PAIN; Start 09/26/18 at 08:45 Ibuprofen (Motrin) 400 mg PRN Q6HRS PRN PO INFLAMMATION; Start 09/26/18 at 08: 45 Active Scripts Active Reported Mirtazapine 15 Mg Tablet 15 Mg PO DAILY Escitalopram Oxalate 5 Mg Tablet 5 Mg PO DAILY Metoprolol Succinate ( Xl ) (Metoprolol Succinate) 25 Mg Tab.er.24h 1 Tab PO DAILY Omeprazole 40 Mg Capsule. 40 Mg PO DAILY Albuterol Sulfate Neb Soln (Albuterol Sulfate) 2.5 Mg/3 Ml Vial.neb 2.5 Mg NEB PRN Proair Hfa Inhaler (Albuterol Sulfate) 8.5 Gm Hfa.aer.ad 2 Puff IH PRN Q4-6HRS PRN Omeprazole 20 Mg Capsule. 1 Cap PO DAILY Vitals/I & O Vital Sign - Last 24 Hours 09/25/18 09/25/18 09/25/18 09/25/18 10:00 10:13 11:00 11:56 Pulse 84 85 Resp 24 24 B/P (MAP) 141/84 (103) 141/88 (105) Pulse Ox 98 96 99 98 O2 Delivery BiPAP/CPAP BiPAP/CPAP BiPAP/CPAP BiPAP/CPAP 09/25/18 09/25/18 09/25/18 09/25/18 12:00 12:00 13:00 13:12 Pulse 98 107 Resp 24 24 B/P (MAP) 154/93 (113) 153/87 (109) Pulse Ox 97 92 92 O2 Delivery BiPAP/CPAP Bi-pap BiPAP/CPAP BiPAP/CPAP 09/25/18 09/25/18 09/25/18 09/25/18 14:00 15:00 15:41 16:00 Temp 98.3 98.3 Pulse 112 112 107 Resp 24 24 24 B/P (MAP) 152/87 (108) 156/89 (111) 144/81 (102) Pulse Ox 93 94 95 98 O2 Delivery BiPAP/CPAP BiPAP/CPAP BiPAP/CPAP BiPAP/CPAP 09/25/18 09/25/18 09/25/18 09/25/18 16:00 17:00 18:00 19:00 Pulse 118 118 114 Resp 22 20 24 B/P (MAP) 152/79 (103) 151/72 (98) 152/68 (96) Pulse Ox 93 93 92 O2 Delivery Bi-pap Venturi Mask Venturi Mask Venturi Mask O2 Flow Rate 12.0 12.0 9.0 09/25/18 09/25/18 09/25/18 09/25/18 20:00 20:00 20:13 21:00 Temp 97.7 97.7 Pulse 110 118 Resp 20 18 B/P (MAP) 144/63 (90) 141/69 (93) Pulse Ox 91 93 92 O2 Delivery Venturi Mask Venturi Mask Venturi Mask Venturi Mask O2 Flow Rate 9.0 9.0 9.0 9.0 09/25/18 09/25/18 09/25/18 09/26/18 22:00 23:00 23:22 00:00 Pulse 119 106 Resp 16 20 B/P (MAP) 149/71 (97) 152/65 (94) Pulse Ox 93 94 95 O2 Delivery Venturi Mask Venturi Mask BiPAP/CPAP Bi-pap O2 Flow Rate 9.0 12.0 9.0 09/26/18 09/26/18 09/26/18 09/26/18 00:12 01:00 01:40 02:00 Temp 98.1 98.1 Pulse 107 102 102 Resp 24 28 28 B/P (MAP) 145/74 (97) 144/75 (98) 154/78 (103) Pulse Ox 97 94 98 94 O2 Delivery BiPAP/CPAP BiPAP/CPAP BiPAP/CPAP BiPAP/CPAP O2 Flow Rate 12.0 12.0 09/26/18 09/26/18 09/26/18 09/26/18 03:00 03:38 04:00 04:35 Pulse 114 102 Resp 24 24 B/P (MAP) 125/76 (92) 142/86 (104) Pulse Ox 94 98 94 O2 Delivery BiPAP/CPAP BiPAP/CPAP Bi-pap BiPAP/CPAP O2 Flow Rate 12.0 9.0 12.0 09/26/18 09/26/18 09/26/18 09/26/18 05:00 05:30 06:00 07:00 Pulse 104 106 100 Resp 22 24 24 B/P (MAP) 145/87 (106) 132/65 (87) 143/70 (94) Pulse Ox 94 94 95 96 O2 Delivery BiPAP/CPAP BiPAP/CPAP BiPAP/CPAP BiPAP/CPAP O2 Flow Rate 12.0 09/26/18 09/26/18 09/26/18 08:00 08:00 08:05 Temp 98.0 98.0 Pulse 107 Resp 22 B/P (MAP) 145/80 (101) Pulse Ox 96 O2 Delivery Bi-pap Venturi Mask Venturi Mask O2 Flow Rate 9.0 9.0 Intake and Output 09/25/18 09/25/18 09/26/18 15:00 23:00 07:00 Intake Total 50 ml 930.2 ml 260 ml Output Total 210 ml 335 ml 380 ml Balance -160 ml 595.2 ml -120 ml Nutrition Consultation Dietary Evaluation: Recommendations by RD: PPN/TPN Comments: Continue w/PPN for short-term nutrition needs If extended NPO, recommend feeding tube placement for tube feeding to better meet nutrition needs if appropriate per goals of care Expected Outcomes/Goals: TF initiation/infusion for nutrition needs while pt remains intubated - met, new goal established New goal 09/25: PPN for short-term nutrition needs while pt remains NPO/nutrition as appropriate per goals of care Malnutrition Findings: Body Fat Depletion (Non Severe: Mod to Severe Weight Status: Emaciated ROLY EDMOND MD Sep 26, 2018 09:49
--- NOTE | 2018-09-26 10:20 | PDOC ---
PULMONARY PROGRESS NOTES Subjective extubated 09/24, required BIPAP LETHARGIC, PCO2 150, RX WITH BIPAP AGAIN, NOW MUCH IMPROVED/ FOLLOWS COMMANDS/ ON VM MUCOUS PLUG RIGHT LUNG Vitals Vital Signs Date Time Temp Pulse Resp B/P (MAP) Pulse Ox O2 Delivery O2 Flow Rate FiO2 09/26/18 10:00 104 24 156/75 (102) 96 Venturi Mask 9.0 09/26/18 08:00 98.0 98.0 General: Alert, No acute distress Lungs: Other (decrease right lung) Cardiovascular: S1 Abdomen: Soft Extremities: No Edema Skin: Warm Labs Laboratory Tests Test 09/25/18 03:25 09/25/18 07:30 09/25/18 08:45 09/25/18 15:35 White Blood Count 8.4 x10^3/uL (4.0-11.0) Red Blood Count 3.37 x10^6/uL (3.50-5.40) Hemoglobin 10.3 g/dL (12.0-15.5) Hematocrit 32.6 % (36.0-47.0) Mean Corpuscular Volume 97 fL (79-100) Mean Corpuscular Hemoglobin 31 pg (25-35) Mean Corpuscular Hemoglobin Concent 32 g/dL (31-37) Red Cell Distribution Width 17.4 % (11.5-14.5) Platelet Count 140 x10^3/uL (140-400) Neutrophils (%) (Auto) 71 % (31-73) Lymphocytes (%) (Auto) 17 % (24-48) Monocytes (%) (Auto) 11 % (0-9) Eosinophils (%) (Auto) 1 % (0-3) Basophils (%) (Auto) 0 % (0-3) Neutrophils # (Auto) 6.0 x10^3uL (1.8-7.7) Lymphocytes # (Auto) 1.4 x10^3/uL (1.0-4.8) Monocytes # (Auto) 0.9 x10^3/uL (0.0-1.1) Eosinophils # (Auto) 0.1 x10^3/uL (0.0-0.7) Basophils # (Auto) 0.0 x10^3/uL (0.0-0.2) Sodium Level 143 mmol/L (136-145) Potassium Level 3.8 mmol/L (3.5-5.1) Chloride Level 105 mmol/L (98-107) Carbon Dioxide Level 37 mmol/L (21-32) Anion Gap 1 (6-14) Blood Urea Nitrogen 13 mg/dL (7-20) Creatinine 0.8 mg/dL (0.6-1.0) Estimated GFR (Cockcroft-Gault) 73.9 BUN/Creatinine Ratio 16 (6-20) Glucose Level 97 mg/dL (70-99) Calcium Level 8.2 mg/dL (8.5-10.1) Total Bilirubin 0.3 mg/dL (0.2-1.0) Aspartate Amino Transf (AST/SGOT) 19 U/L (15-37) Alanine Aminotransferase (ALT/SGPT) 8 U/L (14-59) Alkaline Phosphatase 47 U/L (46-116) Total Protein 6.0 g/dL (6.4-8.2) Albumin 2.6 g/dL (3.4-5.0) Albumin/Globulin Ratio 0.8 (1.0-1.7) Vancomycin Level Trough 9.2 mcg/mL (10.0-20.0) Vancomycin Last Dose Date Vancomycin Last Dose Time 0400 O2 Saturation 95 % (92-99) 95 % (92-99) 92 % (92-99) Arterial Blood pH 7.06 (7.35-7.45) 7.16 (7.35-7.45) 7.45 (7.35-7.45) Arterial Blood pCO2 at Patient Temp 151 mmHg (35-46) 117 mmHg (35-46) 46 mmHg (35-46) Arterial Blood pO2 at Patient Temp 90 mmHg (75-108) 82 mmHg (75-108) 55 mmHg (75-108) Arterial Blood HCO3 42 mmol/L (21-28) 40 mmol/L (21-28) 31 mmol/L (21-28) Arterial Blood Base Excess 7 mmol/L (-3-3) 8 mmol/L (-3-3) 6 mmol/L (-3-3) FiO2 50 28 Test 09/26/18 04:30 White Blood Count 8.0 x10^3/uL (4.0-11.0) Red Blood Count 3.14 x10^6/uL (3.50-5.40) Hemoglobin 9.7 g/dL (12.0-15.5) Hematocrit 29.6 % (36.0-47.0) Mean Corpuscular Volume 94 fL (79-100) Mean Corpuscular Hemoglobin 31 pg (25-35) Mean Corpuscular Hemoglobin Concent 33 g/dL (31-37) Red Cell Distribution Width 16.2 % (11.5-14.5) Platelet Count 113 x10^3/uL (140-400) Neutrophils (%) (Auto) 78 % (31-73) Lymphocytes (%) (Auto) 10 % (24-48) Monocytes (%) (Auto) 11 % (0-9) Eosinophils (%) (Auto) 1 % (0-3) Basophils (%) (Auto) 1 % (0-3) Neutrophils # (Auto) 6.2 x10^3uL (1.8-7.7) Lymphocytes # (Auto) 0.8 x10^3/uL (1.0-4.8) Monocytes # (Auto) 0.9 x10^3/uL (0.0-1.1) Eosinophils # (Auto) 0.0 x10^3/uL (0.0-0.7) Basophils # (Auto) 0.0 x10^3/uL (0.0-0.2) Sodium Level 141 mmol/L (136-145) Potassium Level 3.8 mmol/L (3.5-5.1) Chloride Level 101 mmol/L (98-107) Carbon Dioxide Level 36 mmol/L (21-32) Anion Gap 4 (6-14) Blood Urea Nitrogen 18 mg/dL (7-20) Creatinine 0.7 mg/dL (0.6-1.0) Estimated GFR (Cockcroft-Gault) 86.2 Glucose Level 100 mg/dL (70-99) Calcium Level 8.7 mg/dL (8.5-10.1) Laboratory Tests Test 09/25/18 15:35 09/26/18 04:30 O2 Saturation 92 % (92-99) Arterial Blood pH 7.45 (7.35-7.45) Arterial Blood pCO2 at Patient Temp 46 mmHg (35-46) Arterial Blood pO2 at Patient Temp 55 mmHg (75-108) Arterial Blood HCO3 31 mmol/L (21-28) Arterial Blood Base Excess 6 mmol/L (-3-3) FiO2 28 White Blood Count 8.0 x10^3/uL (4.0-11.0) Red Blood Count 3.14 x10^6/uL (3.50-5.40) Hemoglobin 9.7 g/dL (12.0-15.5) Hematocrit 29.6 % (36.0-47.0) Mean Corpuscular Volume 94 fL (79-100) Mean Corpuscular Hemoglobin 31 pg (25-35) Mean Corpuscular Hemoglobin Concent 33 g/dL (31-37) Red Cell Distribution Width 16.2 % (11.5-14.5) Platelet Count 113 x10^3/uL (140-400) Neutrophils (%) (Auto) 78 % (31-73) Lymphocytes (%) (Auto) 10 % (24-48) Monocytes (%) (Auto) 11 % (0-9) Eosinophils (%) (Auto) 1 % (0-3) Basophils (%) (Auto) 1 % (0-3) Neutrophils # (Auto) 6.2 x10^3uL (1.8-7.7) Lymphocytes # (Auto) 0.8 x10^3/uL (1.0-4.8) Monocytes # (Auto) 0.9 x10^3/uL (0.0-1.1) Eosinophils # (Auto) 0.0 x10^3/uL (0.0-0.7) Basophils # (Auto) 0.0 x10^3/uL (0.0-0.2) Sodium Level 141 mmol/L (136-145) Potassium Level 3.8 mmol/L (3.5-5.1) Chloride Level 101 mmol/L (98-107) Carbon Dioxide Level 36 mmol/L (21-32) Anion Gap 4 (6-14) Blood Urea Nitrogen 18 mg/dL (7-20) Creatinine 0.7 mg/dL (0.6-1.0) Estimated GFR (Cockcroft-Gault) 86.2 Glucose Level 100 mg/dL (70-99) Calcium Level 8.7 mg/dL (8.5-10.1) Medications Active Scripts Medications Dose Route/Sig Max Daily Dose Days Date Category Mirtazapine 15 Mg Tablet 15 Mg PO DAILY 09/23/18 Reported Escitalopram Oxalate 5 Mg Tablet 5 Mg PO DAILY 09/23/18 Reported Metoprolol Succinate ( Xl ) (Metoprolol Succinate) 25 Mg Tab.er.24h 1 Tab PO DAILY 09/23/18 Reported Omeprazole 40 Mg Capsule. 40 Mg PO DAILY 09/23/18 Reported Albuterol Sulfate Neb Soln (Albuterol Sulfate) 2.5 Mg/3 Ml Vial.neb 2.5 Mg NEB PRN 02/01/15 Reported Proair Hfa Inhaler (Albuterol Sulfate) 8.5 Gm Hfa.aer.ad 2 Puff IH PRN Q4-6HRS PRN 02/01/15 Reported Omeprazole 20 Mg Capsule. 1 Cap PO DAILY 02/01/15 Reported Comments CXR 09/26 persistent right lower lobe collapse Impression . 1. [id number] hypercapnic respiratory failure secondary to acute exacerbation of chronic obstructive pulmonary disease, toxic encephalopathy related to severe hypercarbia and likely a lower respiratory tract infection. extubated 09/24 . Required BIPAP post extubation 2. High-grade fever POA. Influenza screen negative. No definite consolidation on initial chest x-ray, but likely acute bronchitis, but we will look for other sources of infection as well. 3. Suspect underlying severe chronic obstructive pulmonary disease. 4. Lactic acidosis related to early sepsis, 5. Hypotension, probably related to dehydration and post-intubation. Responded to IV fluids. 6. Mucous plug right lung Plan . 1. Clinically improved 2. Empiric antibiotic. 3. Follow cultures including blood culture, sputum cultures and urine cultures. 4. High risk for Bronch/ would not rec it 5. Broad-spectrum antibiotics. 6. DVT prophylaxis with Lovenox. 7. Stress ulcer prophylaxis with PPI. 8. Discussed with RN and RT. POOR PROGNOSIS.PALLIATIVE CARE MET WITH DAUGHTER YESTERDAY. DNR NOW AND HOME HOSPICE TODAY CONTINUE VM WITH BIPAP Q SHAYLEE RUSH MD Sep 26, 2018 10:20
[2018-09-26] MEDS: OSELTAMIVIR 30 MG/5 ML ORAL.SUSP. NG SCH (11:26)
[2018-09-26] MEDS ORDERED: NON FORMULARY ITEM (Albuterol Sulfate (Proair Hfa Inhaler) 2 PUFF) IH PRN (14:00)
[2018-09-26] MEDS ORDERED: ALBUTEROL SULFATE 2.5 MG/3 ML NEBU. NEB PRN (14:15)
[2018-09-26] MEDS: CITALOPRAM 10 MG TABLET. PO SCH (15:24)
[2018-09-26] MEDS: METOPROLOL SUCC 24HR ER 25 MG TAB.ER.24H. PO SCH (15:25)
--- NOTE | 2018-09-26 15:36 | PDOC2 ---
PALLIATIVE CARE Palliative Care Note Palliative Care Patient more alert. Off Bipap. Oxygen NC. Weak non-productive cough. Swallow evaluation completed with diet ordered. Received permission from patient to talk with family. Spoke with Paul brother/ROCHELLE and his . Reviewed medical condition. Improvement today--off Bipap. Patient indicating to family she wants to go home when discharged. Family understands she likely will not be able to care for herself. Limited resources Medicaid ([employer]) insurance. No rehab benefit. Outside the Hospital DNR/DNI signed by ROCHELLE. Likely patient will need [facility]. Hospice would be appropriate. Patient transferred to 536. Spoke with Leny JOHN to assist family in selecting facility that will take Medicaid. Plan: DNR/DNI Working on discharge plan. If no further improvement Hospice in [facility] would be appropriate. DPIONA aggress. Patient wants to go home--has no resources for care. Will need BiPap at night. ARIE RUTHERFORD Sep 26, 2018 15:36
[2018-09-26] MEDS: MIRTAZAPINE 15 MG TABLET PO SCH (20:34)
[2018-09-26] MEDS: ENOXAPARIN 30 MG/0.3 ML SYRINGE. SQ SCH (20:35)
[2018-09-27 03:00] VITALS: BP 86/62
[2018-09-27] MEDS: PIPERACILLIN/TAZOBACTAM 2.25 GM in IV NORMAL SALINE 50ML 50 ML IV SCH ×4 (05:20→23:47)
[2018-09-27] MEDS: PANTOPRAZOLE IV PUSH 40 MG VIAL. IVP SCH (06:01)
[2018-09-27] MEDS ORDERED: IPRATRPIUM/ALBUTEROL 0.5/2.5MG 3 ML NEBU. ONE (06:53)
[2018-09-27 07:00] VITALS: BP 106/68
[2018-09-27] MEDS: IPRATRPIUM/ALBUTEROL 0.5/2.5MG 3 ML NEBU. NEB SCH ×4 (07:13→19:24)
[2018-09-27] MEDS: CITALOPRAM 10 MG TABLET. PO SCH (08:48)
[2018-09-27] MEDS: METOPROLOL SUCC 24HR ER 25 MG TAB.ER.24H. PO SCH (08:51)
[2018-09-27] MEDS ORDERED: NON FORMULARY ITEM (Omeprazole 1 CAP) PO SCH (09:00)
[2018-09-27] MEDS ORDERED: NON FORMULARY ITEM (Omeprazole 40 MG) PO SCH (09:00)
[2018-09-27 11:00] VITALS: BP_SYST 103; BP_SYST 111; BP_DIAS 65; BP_DIAS 70
--- NOTE | 2018-09-27 12:14 | PDOC ---
PROGRESS NOTES Chief Complaint Chief Complaint Severe hypercapnic/hypoxic respiratory failure, intubated for C02 (>200s) EXTBATED 09/24/18 Heavy smoker Undernourished, cachexia BMI 13 Low grade Temperatures, sepsis with no organ dysfunction HTN Plan: BiPAP at night cont metoprolol if BP >100 fu with pulm, on zosyn change protonix to po daily from iv PTOT, RECOMMend SNF SW consult PAT COnsulted i doubt pt will do hospice tho repeat CXR tmr DNR History of Present Illness History of Present Illness Extubated 09/24/18 Needed BiPAP at night Now ABGs much better Feels weak, dry lips- so thirsty,eats fine Plan for palliative meet 2 PM with the family on saturday pt lives alone Vitals Vitals Vital Signs Date Time Temp Pulse Resp B/P (MAP) Pulse Ox O2 Delivery O2 Flow Rate FiO2 09/27/18 10:48 Nasal Cannula 2.0 09/27/18 08:51 70 106/68 09/27/18 07:15 96 09/27/18 07:00 98.6 17 98.6 Physical Exam Physical Exam GENERAL: lethargic, arousable, on ventimask HEENT: no icterus. Pupils equal, reactive. No thrush. NECK: Supple. LUNGS: Decreased breath sounds at bases, otherwise clear. HEART: S1, S2, tachycardia. ABDOMEN: Soft, nontender, nondistended, no rebound, no grimacing on deep palpation. EXTREMITIES: No edema, no cyanosis, no clubbing. NEUROLOGIC: Moves all four extremities PSYCHIATRIC: alert awake cooperative DERMATOLOGIC: Warm, dry, no generalized rash. General: No acute distress, Other (undernourished, minimal subcutaneous tissue , BMI of 13) Heart: Regular rate Lungs: Other (decrease right lung) Abdomen: Normal bowel sounds, Soft, No tenderness, No hepatosplenomegaly, No masses Extremities: No clubbing, No cyanosis, No edema, Normal pulses, No tenderness/ swelling Skin: No rashes, No breakdown, No significant lesion Labs LABS Laboratory Tests Test 09/27/18 07:11 09/27/18 11:51 Glucose (Fingerstick) 114 mg/dL (70-99) 122 mg/dL (70-99) Assessment and Plan Assessmemt and Plan Problems Medical Problems: (1) Acute respiratory failure with hypercapnia Status: Acute (2) COPD with acute exacerbation Status: Acute Comment Review of Relevant I have reviewed the following items alexsander (where applicable) has been applied. Labs Laboratory Tests Test 09/25/18 15:35 09/26/18 04:30 09/27/18 07:11 09/27/18 11:51 O2 Saturation 92 % (92-99) Arterial Blood pH 7.45 (7.35-7.45) Arterial Blood pCO2 at Patient Temp 46 mmHg (35-46) Arterial Blood pO2 at Patient Temp 55 mmHg (75-108) Arterial Blood HCO3 31 mmol/L (21-28) Arterial Blood Base Excess 6 mmol/L (-3-3) FiO2 28 White Blood Count 8.0 x10^3/uL (4.0-11.0) Red Blood Count 3.14 x10^6/uL (3.50-5.40) Hemoglobin 9.7 g/dL (12.0-15.5) Hematocrit 29.6 % (36.0-47.0) Mean Corpuscular Volume 94 fL (79-100) Mean Corpuscular Hemoglobin 31 pg (25-35) Mean Corpuscular Hemoglobin Concent 33 g/dL (31-37) Red Cell Distribution Width 16.2 % (11.5-14.5) Platelet Count 113 x10^3/uL (140-400) Neutrophils (%) (Auto) 78 % (31-73) Lymphocytes (%) (Auto) 10 % (24-48) Monocytes (%) (Auto) 11 % (0-9) Eosinophils (%) (Auto) 1 % (0-3) Basophils (%) (Auto) 1 % (0-3) Neutrophils # (Auto) 6.2 x10^3uL (1.8-7.7) Lymphocytes # (Auto) 0.8 x10^3/uL (1.0-4.8) Monocytes # (Auto) 0.9 x10^3/uL (0.0-1.1) Eosinophils # (Auto) 0.0 x10^3/uL (0.0-0.7) Basophils # (Auto) 0.0 x10^3/uL (0.0-0.2) Sodium Level 141 mmol/L (136-145) Potassium Level 3.8 mmol/L (3.5-5.1) Chloride Level 101 mmol/L (98-107) Carbon Dioxide Level 36 mmol/L (21-32) Anion Gap 4 (6-14) Blood Urea Nitrogen 18 mg/dL (7-20) Creatinine 0.7 mg/dL (0.6-1.0) Estimated GFR (Cockcroft-Gault) 86.2 Glucose Level 100 mg/dL (70-99) Calcium Level 8.7 mg/dL (8.5-10.1) Glucose (Fingerstick) 114 mg/dL (70-99) 122 mg/dL (70-99) Laboratory Tests Test 09/27/18 07:11 09/27/18 11:51 Glucose (Fingerstick) 114 mg/dL (70-99) 122 mg/dL (70-99) Microbiology 09/23/18 Blood Culture - Preliminary, Resulted NO GROWTH AFTER 4 DAYS Medications Current Medications Methylprednisolone Sodium Succinate (SOLU-Medrol 125MG VIAL) 125 mg 1X ONCE IV Last administered on 09/22/18at 21:38; Start 09/22/18 at 22:00; Stop at 22:01; Status DC Albuterol Sulfate (Ventolin Neb Soln) 10 mg 1X ONCE CONT NEB Last administered on 09/22/18at 21:36; Start 09/22/18 at 22:00; Stop 09/22/18 at 22 :01; Status DC Ipratropium Twining (Atrovent) 0.5 mg 1X ONCE NEB Last administered on at 21:36; Start 09/22/18 at 22:00; Stop 09/22/18 at 22:01; Status DC Lorazepam (Ativan) 2 mg 1X ONCE IV Last administered on 09/22/18at 21:38; Start 09/22/18 at 22:00; Stop 09/22/18 at 22:01; Status DC Propofol 50 ml @ As Directed STK-MED ONCE IV ; Start 09/22/18 at 22:01; Stop 09/22/18 at 22:03; Status DC Etomidate (Amidate) 20 mg STK-MED ONCE IV ; Start 09/22/18 at 22:07; Stop 07/31 at 22:08; Status DC Vecuronium Twining (Norcuron Bolus) 10 mg STK-MED ONCE IV ; Start 09/22/18 at 22:07; Stop 09/22/18 at 22:08; Status DC Etomidate (Amidate) 20 mg 1X ONCE IV Last administered on 09/22/18at 22:05; Start 09/22/18 at 22:45; Stop 09/22/18 at 22:46; Status DC Vecuronium Twining (Norcuron Bolus) 10 mg 1X ONCE IV Last administered on 07/31at 22:05; Start 09/22/18 at 22:45; Stop 09/22/18 at 22:46; Status DC Propofol 100 ml @ 0 mls/hr CONT PRN IV SEE PROTOCOL Last administered on at 22:10; Start 09/22/18 at 22:45; Stop 09/25/18 at 10:11; Status DC Sodium Chloride 1,000 ml @ 1,000 mls/hr 1X ONCE IV Last administered on 09/23at 01:38; Start 09/23/18 at 01:30; Stop 09/23/18 at 02:29; Status DC Sodium Chloride 1,000 ml @ 1,000 mls/hr 1X ONCE IV Last administered on 09/23at 02:08; Start 09/23/18 at 01:30; Stop 09/23/18 at 02:29; Status DC Sodium Chloride 1,000 ml @ 100 mls/hr Q10H IV Last administered on 09/25/18at 07:52; Start 09/23/18 at 02:30; Stop 09/25/18 at 11:10; Status DC Enoxaparin Sodium (Lovenox Per Pharmacy Prophylaxis Dosing) 1 each PRN DAILY PRN MC SEE COMMENTS; Start 09/23/18 at 01:30; Stop 09/23/18 at 07:24; Status DC Midazolam HCl 100 ml @ 5 mls/hr CONT PRN IV SEE I/O RECORD Last administered on 09/23/18at 17:47; Start 09/23/18 at 01:30; Stop 09/25/18 at 10:11; Status DC Enoxaparin Sodium (Lovenox 30mg Syringe) 30 mg QHS SQ Last administered on at 20:35; Start 09/23/18 at 01:30 Sodium Chloride 250 ml @ 250 mls/hr 1X ONCE IV Last administered on at 00:30; Start 09/23/18 at 01:45; Stop 09/23/18 at 02:44; Status DC Piperacillin Sod/ Tazobactam Sod (Zosyn Per Pharmacy) 1 each PRN DAILY PRN MC SEE COMMENTS; Start 09/23/18 at 03:30; Stop 09/23/18 at 07:25; Status DC Vancomycin HCl (Vanco Per Pharmacy) 1 each PRN DAILY PRN MC SEE COMMENTS Last administered on 09/25/18at 06:12; Start 09/23/18 at 03:30; Stop 09/25/18 at 07 :38; Status DC Vancomycin HCl 1 gm/Sodium Chloride 250 ml @ 250 mls/hr 1X ONCE IV Last administered on 09/23/18at 03:41; Start 09/23/18 at 04:00; Stop 09/23/18 at 04 :59; Status DC Piperacillin Sod/ Tazobactam Sod 2.25 gm/Sodium Chloride 50 ml @ 100 mls/hr Q6HRS IV Last administered on 09/27/18at 05:20; Start 09/23/18 at 05:00 Vancomycin HCl 500 mg/Dextrose 100 ml @ 100 mls/hr Q24H IV Last administered on 09/24/18at 03:57; Start 09/24/18 at 04:00; Stop 09/25/18 at 04:39; Status DC Vancomycin HCl (Vancomycin Trough Level) 1 each 1X ONCE MC Last administered on 09/25/18at 03:30; Start 09/25/18 at 03:30; Stop 09/25/18 at 03:31; Status DC Albuterol/ Ipratropium (Duoneb) 3 ml 1X ONCE NEB Last administered on at 04:20; Start 09/23/18 at 04:30; Stop 09/23/18 at 04:31; Status DC Pantoprazole Sodium (PROTONIX VIAL for IV PUSH) 40 mg DAILYAC IVP Last administered on 09/27/18at 06:01; Start 09/23/18 at 07:30 Enoxaparin Sodium (Lovenox 40mg Syringe) 40 mg Q24H SQ ; Start 09/24/18 at 08: 00; Status Cancel Oseltamivir Phosphate (Tamiflu Suspension) 75 mg BID NG ; Start 09/23/18 at 09: 00; Stop 09/23/18 at 10:25; Status DC Albuterol/ Ipratropium (Duoneb) 3 ml RTQID NEB Last administered on 09/27/18at 10:47; Start 09/23/18 at 12:00 Oseltamivir Phosphate (Tamiflu Suspension) 30 mg BID NG Last administered on at 21:06; Start 09/23/18 at 10:30; Stop 09/26/18 at 09:09; Status DC Vancomycin HCl 500 mg/Dextrose 100 ml @ 100 mls/hr Q24H IV ; Start 09/25/18 at 04:45; Stop 09/25/18 at 04:46; Status DC Vancomycin HCl 500 mg/Dextrose 100 ml @ 100 mls/hr Q18H IV Last administered on 09/25/18at 04:57; Start 09/25/18 at 05:00; Stop 09/25/18 at 07:38; Status DC Vancomycin HCl (Vancomycin Trough Level) 1 each 1X ONCE MC ; Start 09/25/18 at 22:30; Stop 09/25/18 at 22:31; Status Cancel Amino Acids/ Glycerin/ Electrolytes 1,000 ml @ 60 mls/hr [id number] IV Last administered on 09/26/18at 03:25; Start 09/25/18 at 11:00; Stop 09/26/18 at 14 :05; Status DC Lidocaine (Lidoderm) 1 patch PRN DAILY PRN TD PAIN Last administered on at 23:24; Start 09/25/18 at 23:00 Acetaminophen (Tylenol) 500 mg PRN Q6HRS PRN PO MILD PAIN / TEMP; Start at 08:45 Acetaminophen/ Codeine Phosphate (Tylenol #3) 1 tab PRN Q6HRS PRN PO MODERATE PAIN; Start 09/26/18 at 08:45 Ibuprofen (Motrin) 400 mg PRN Q6HRS PRN PO INFLAMMATION; Start 09/26/18 at 08: 45 Metoprolol Succinate (Toprol Xl) 25 mg DAILY PO Last administered on at 08:51; Start 09/26/18 at 15:00 Non-Formulary Medication (Albuterol Sulfate (Proair Hfa Inhaler)) 2 puff PRN Q4- 6HRS PRN IH SHORTNESS OF BREATH; Start 09/26/18 at 14:00; Stop 09/26/18 at 14: 13; Status DC Citalopram Hydrobromide (CeleXA) 10 mg DAILY PO Last administered on at 08:48; Start 09/26/18 at 15:00 Mirtazapine (Remeron) 15 mg QHS PO Last administered on 09/26/18at 20:34; Start 09/26/18 at 21:00 Non-Formulary Medication (Omeprazole ) 1 cap DAILY PO ; Start 09/27/18 at 09:00 ; Stop 09/27/18 at 09:00; Status DC Non-Formulary Medication (Omeprazole ) 40 mg DAILY PO ; Start 09/27/18 at 09:00 ; Stop 09/27/18 at 09:00; Status DC Albuterol Sulfate (Ventolin Neb Soln) 2.5 mg PRN Q4HRS PRN NEB SHORTNESS OF BREATH; Start 09/26/18 at 14:15 Albuterol/ Ipratropium (Duoneb) 3 ml STK-MED ONCE .ROUTE ; Start 09/27/18 at 06 :53; Stop 09/27/18 at 06:54; Status DC Active Scripts Active Reported Mirtazapine 15 Mg Tablet 15 Mg PO DAILY Escitalopram Oxalate 5 Mg Tablet 5 Mg PO DAILY Metoprolol Succinate ( Xl ) (Metoprolol Succinate) 25 Mg Tab.er.24h 1 Tab PO DAILY Omeprazole 40 Mg Capsule. 40 Mg PO DAILY Albuterol Sulfate Neb Soln (Albuterol Sulfate) 2.5 Mg/3 Ml Vial.neb 2.5 Mg NEB PRN Proair Hfa Inhaler (Albuterol Sulfate) 8.5 Gm Hfa.aer.ad 2 Puff IH PRN Q4-6HRS PRN Omeprazole 20 Mg Capsule. 1 Cap PO DAILY Vitals/I & O Vital Sign - Last 24 Hours 09/26/18 09/26/18 09/26/18 09/26/18 1218 15:25 15:51 16:00 Temp 99.3 99.3 Pulse 101 114 Resp 22 B/P (MAP) 151/82 110/68 (82) Pulse Ox 92 91 96 O2 Delivery Venturi Mask Nasal Cannula Venturi Mask O2 Flow Rate 9.0 3.0 09/26/18 09/26/18 09/26/18 09/26/18 16:00 19:00 19:10 20:36 Temp 97.9 97.9 Pulse 97 Resp 20 B/P (MAP) 99/68 (78) Pulse Ox 96 96 O2 Delivery Venturi Mask Nasal Cannula Nasal Cannula O2 Flow Rate 3.0 9.0 3.0 3.0 09/26/18 09/26/18 09/26/18 09/27/18 20:52 22:24 23:41 03:00 Temp 98.0 98.1 98.0 98.1 Pulse 86 91 Resp 20 18 B/P (MAP) 104/77 (86) 86/62 (70) Pulse Ox 97 98 O2 Delivery BiPAP/CPAP BiPAP/CPAP BiPAP/CPAP BiPAP/CPAP 09/27/18 09/27/18 09/27/18 09/27/18 07:00 07:15 08:00 08:51 Temp 98.6 98.6 Pulse 98 70 Resp 17 B/P (MAP) 106/68 (81) 106/68 Pulse Ox 98 96 O2 Delivery BiPAP/CPAP Nasal Cannula Nasal Cannula O2 Flow Rate 3.0 3.0 09/27/18 10:48 O2 Delivery Nasal Cannula O2 Flow Rate 2.0 Intake and Output 09/26/18 09/26/18 09/27/18 15:00 23:00 07:00 Intake Total 645 ml 350 ml Output Total 195 ml 400 ml Balance 450 ml -50 ml Nutrition Consultation Dietary Evaluation: Recommendations by RD: PPN/TPN Comments: Continue w/PPN for short-term nutrition needs If extended NPO, recommend feeding tube placement for tube feeding to better meet nutrition needs if appropriate per goals of care Expected Outcomes/Goals: TF initiation/infusion for nutrition needs while pt remains intubated - met, new goal established New goal 09/25: PPN for short-term nutrition needs while pt remains NPO/nutrition as appropriate per goals of care Malnutrition Findings: Body Fat Depletion (Non Severe: Mod to Severe Weight Status: Emaciated MATT HERNANDEZ MD Sep 27, 2018 12:14
--- NOTE | 2018-09-27 14:06 | PDOC ---
Infectious Disease Note Subjective Subjective Feeling tired Denies CP/SOA/cough No F/C/S ROS ROS neg except for above Vital Sign Vital Signs Vital Signs Date Time Temp Pulse Resp B/P (MAP) Pulse Ox O2 Delivery O2 Flow Rate FiO2 09/27/18 11:00 98.1 89 17 111/70 (84) 97 BiPAP/CPAP 98.1 09/27/18 10:48 2.0 Physical Exam PHYSICAL EXAM GENERAL: lethargic, arousable, on ventimask HEENT: no icterus. Pupils equal, reactive. No thrush. NECK: Supple. LUNGS: Decreased breath sounds at bases, otherwise clear. HEART: S1, S2, tachycardia. ABDOMEN: Soft, nontender, nondistended, no rebound, no grimacing on deep palpation. EXTREMITIES: No edema, no cyanosis, no clubbing. NEUROLOGIC: Moves all four extremities PSYCHIATRIC: alert awake cooperative DERMATOLOGIC: Warm, dry, no generalized rash. Labs Lab Laboratory Tests Test 09/27/18 07:11 09/27/18 11:51 Glucose (Fingerstick) 114 mg/dL (70-99) 122 mg/dL (70-99) Micro Microbiology 09/23/18 Blood Culture - Preliminary, Resulted NO GROWTH AFTER 4 DAYS Objective Assessment Fever source likely respiratory. flu screen neg, resolved Acute resp failure s/p intubation now extubated requiring BiPAP and VM, mucus plug Anemia/thrombocytopenia Lactic acidosis resolved Hypotension requiring pressors,now off pressors Encephalopathy resolved COPD History of bronchiectasis. Plan Plan of Care Cont Zosyn since 09/23. BC NGTD f/u am labs Supportive care Palliative care following DNR/DNI Oli RN. Patient seen, examined, I agree with assessment and plan MERCED ROMERO APRN Sep 27, 2018 14:06 EMPERATRIZ FOWLER MD Sep 27, 2018 15:51
[2018-09-27 15:00] VITALS: BP 103/70
[2018-09-27 19:00] VITALS: BP 101/69
[2018-09-27] MEDS: MIRTAZAPINE 15 MG TABLET PO SCH (20:39)
[2018-09-27] MEDS: LACTOBACILLUS RHAMNOSUS GG 1 CAPSULE. PO SCH (20:39)
[2018-09-27] MEDS: ENOXAPARIN 40 MG/0.4 ML SYRINGE. SQ SCH (20:40)
[2018-09-27 23:00] VITALS: BP 110/74
[2018-09-28 02:59] VITALS: BP 111/66
[2018-09-28 05:02] LABS: BASO % 1 % (0-3); EOS # 0.1 x10^3/uL (0.0-0.7); EOS % 3 % (0-3); HEMATOCRIT 30.1 % (36.0-47.0); HEMOGLOBIN 9.9 g/dL (12.0-15.5); LYMPH # 1.2 x10^3/uL (1.0-4.8); LYMPH % 20 % (24-48); MEAN CORPUSCULAR HEMOGLOBIN 31 pg (25-35); MEAN CORPUSCULAR HGB CONC 33 g/dL (31-37); MEAN CORPUSCULAR VOLUME 95 fL (79-100); MONO # 0.7 x10^3/uL (0.0-1.1); MONO % 12 % (0-9); NEUT # 3.8 x10^3uL (1.8-7.7); NEUT % 65 % (31-73); PLATELET COUNT 141 x10^3/uL (140-400); RED BLOOD COUNT 3.18 x10^6/uL (3.50-5.40); RED CELL DISTRIBUTION WIDTH 16.2 % (11.5-14.5); WHITE BLOOD COUNT 5.8 x10^3/uL (4.0-11.0)
[2018-09-28] MEDS: PIPERACILLIN/TAZOBACTAM 2.25 GM in IV NORMAL SALINE 50ML 50 ML IV SCH ×2 (05:34→11:39)
[2018-09-28 06:03] LABS: CALCIUM 8.4 mg/dL (8.5-10.1); GFR 57.1; POTASSIUM 3.6 mmol/L (3.5-5.1)
[2018-09-28 07:00] VITALS: BP 117/76
[2018-09-28] MEDS: IPRATRPIUM/ALBUTEROL 0.5/2.5MG 3 ML NEBU. NEB SCH ×4 (07:35→19:25)
[2018-09-28] MEDS: PANTOPRAZOLE 40 MG TABLET.DR. PO SCH (07:51)
--- NOTE | 2018-09-28 08:56 | RAD ---
Chest radiograph 09/28/2018 7:00 AM INDICATION: Right mucous plug COMPARISON: September 26, 2018 TECHNIQUE: Portable upright frontal view of the chest is provided. FINDINGS: The cardiomediastinal silhouette is within normal limits. Improved aeration of the right lung base with residual small right pleural effusion and patchy airspace disease. Minimal fluid is suspected to be loculated within the minor fissure. Left lung is predominantly clear. No pulmonary vascular congestion or pneumothorax. IMPRESSION: Improved aeration of the right lung base with small residual pleural effusion and adjacent patchy airspace disease. Electronically signed by: Manuela Richardson MD (09/28/2018 8:52 AM) [facility]
[2018-09-28] MEDS: LACTOBACILLUS RHAMNOSUS GG 1 CAPSULE. PO SCH ×2 (08:57→20:27)
[2018-09-28] MEDS: CITALOPRAM 10 MG TABLET. PO SCH (08:58)
[2018-09-28] MEDS: METOPROLOL SUCC 24HR ER 25 MG TAB.ER.24H. PO SCH (08:58)
[2018-09-28 11:00] VITALS: BP 90/55
--- NOTE | 2018-09-28 11:05 | PDOC ---
PROGRESS NOTES Chief Complaint Chief Complaint Severe hypercapnic/hypoxic respiratory failure, intubated for C02 (>200s) EXTBATED 09/24/18 Heavy smoker Undernourished, cachexia BMI 13 Low grade Temperatures, sepsis with no organ dysfunction HTN History of Present Illness History of Present Illness Extubated 09/24/18 Needed BiPAP at night Now ABGs much better Feels weak, dry lips- so thirsty,eats fine pt lives alone. She wishes to leave, still on iv antibiotics, radford in place, needed full assist with walker to get to bathroom for BM today. CXR today - Improved aeration of the right lung base with small residual pleural effusion and adjacent patchy airspace disease. Plan: BiPAP at night Cont metoprolol if BP >100 fu with pulm, on zosyn PTOT, Recommend SNF SW consult PAT Consulted DNR Vitals Vitals Vital Signs Date Time Temp Pulse Resp B/P (MAP) Pulse Ox O2 Delivery O2 Flow Rate FiO2 09/28/18 10:45 88 Nasal Cannula 2.0 09/28/18 08:58 117/76 09/28/18 07:00 98.2 98 18 98.2 Physical Exam Physical Exam GENERAL: lethargic, arousable, on ventimask HEENT: no icterus. Pupils equal, reactive. No thrush. NECK: Supple. LUNGS: Decreased breath sounds at bases, otherwise clear. HEART: S1, S2, tachycardia. ABDOMEN: Soft, nontender, nondistended, no rebound, no grimacing on deep palpation. EXTREMITIES: No edema, no cyanosis, no clubbing. NEUROLOGIC: Moves all four extremities PSYCHIATRIC: alert awake cooperative DERMATOLOGIC: Warm, dry, no generalized rash. General: No acute distress, Other (undernourished, minimal subcutaneous tissue , BMI of 13) Heart: Regular rate Lungs: Other (decrease right lung) Abdomen: Normal bowel sounds, Soft, No tenderness, No hepatosplenomegaly, No masses Extremities: No clubbing, No cyanosis, No edema, Normal pulses, No tenderness/ swelling Skin: No rashes, No breakdown, No significant lesion Labs LABS Laboratory Tests Test 09/27/18 11:51 09/27/18 17:14 09/28/18 04:30 Glucose (Fingerstick) 122 mg/dL (70-99) 125 mg/dL (70-99) White Blood Count 5.8 x10^3/uL (4.0-11.0) Red Blood Count 3.18 x10^6/uL (3.50-5.40) Hemoglobin 9.9 g/dL (12.0-15.5) Hematocrit 30.1 % (36.0-47.0) Mean Corpuscular Volume 95 fL (79-100) Mean Corpuscular Hemoglobin 31 pg (25-35) Mean Corpuscular Hemoglobin Concent 33 g/dL (31-37) Red Cell Distribution Width 16.2 % (11.5-14.5) Platelet Count 141 x10^3/uL (140-400) Neutrophils (%) (Auto) 65 % (31-73) Lymphocytes (%) (Auto) 20 % (24-48) Monocytes (%) (Auto) 12 % (0-9) Eosinophils (%) (Auto) 3 % (0-3) Basophils (%) (Auto) 1 % (0-3) Neutrophils # (Auto) 3.8 x10^3uL (1.8-7.7) Lymphocytes # (Auto) 1.2 x10^3/uL (1.0-4.8) Monocytes # (Auto) 0.7 x10^3/uL (0.0-1.1) Eosinophils # (Auto) 0.1 x10^3/uL (0.0-0.7) Basophils # (Auto) 0.0 x10^3/uL (0.0-0.2) Sodium Level 145 mmol/L (136-145) Potassium Level 3.6 mmol/L (3.5-5.1) Chloride Level 104 mmol/L (98-107) Carbon Dioxide Level 39 mmol/L (21-32) Anion Gap 2 (6-14) Blood Urea Nitrogen 16 mg/dL (7-20) Creatinine 1.0 mg/dL (0.6-1.0) Estimated GFR (Cockcroft-Gault) 57.1 Glucose Level 117 mg/dL (70-99) Calcium Level 8.4 mg/dL (8.5-10.1) Assessment and Plan Assessmemt and Plan Problems Medical Problems: (1) Acute respiratory failure with hypercapnia Status: Acute (2) COPD with acute exacerbation Status: Acute Comment Review of Relevant I have reviewed the following items alexsander (where applicable) has been applied. Labs Laboratory Tests Test 09/27/18 07:11 09/27/18 11:51 09/27/18 17:14 09/28/18 04:30 Glucose (Fingerstick) 114 mg/dL (70-99) 122 mg/dL (70-99) 125 mg/dL (70-99) White Blood Count 5.8 x10^3/uL (4.0-11.0) Red Blood Count 3.18 x10^6/uL (3.50-5.40) Hemoglobin 9.9 g/dL (12.0-15.5) Hematocrit 30.1 % (36.0-47.0) Mean Corpuscular Volume 95 fL (79-100) Mean Corpuscular Hemoglobin 31 pg (25-35) Mean Corpuscular Hemoglobin Concent 33 g/dL (31-37) Red Cell Distribution Width 16.2 % (11.5-14.5) Platelet Count 141 x10^3/uL (140-400) Neutrophils (%) (Auto) 65 % (31-73) Lymphocytes (%) (Auto) 20 % (24-48) Monocytes (%) (Auto) 12 % (0-9) Eosinophils (%) (Auto) 3 % (0-3) Basophils (%) (Auto) 1 % (0-3) Neutrophils # (Auto) 3.8 x10^3uL (1.8-7.7) Lymphocytes # (Auto) 1.2 x10^3/uL (1.0-4.8) Monocytes # (Auto) 0.7 x10^3/uL (0.0-1.1) Eosinophils # (Auto) 0.1 x10^3/uL (0.0-0.7) Basophils # (Auto) 0.0 x10^3/uL (0.0-0.2) Sodium Level 145 mmol/L (136-145) Potassium Level 3.6 mmol/L (3.5-5.1) Chloride Level 104 mmol/L (98-107) Carbon Dioxide Level 39 mmol/L (21-32) Anion Gap 2 (6-14) Blood Urea Nitrogen 16 mg/dL (7-20) Creatinine 1.0 mg/dL (0.6-1.0) Estimated GFR (Cockcroft-Gault) 57.1 Glucose Level 117 mg/dL (70-99) Calcium Level 8.4 mg/dL (8.5-10.1) Laboratory Tests Test 09/27/18 11:51 09/27/18 17:14 09/28/18 04:30 Glucose (Fingerstick) 122 mg/dL (70-99) 125 mg/dL (70-99) White Blood Count 5.8 x10^3/uL (4.0-11.0) Red Blood Count 3.18 x10^6/uL (3.50-5.40) Hemoglobin 9.9 g/dL (12.0-15.5) Hematocrit 30.1 % (36.0-47.0) Mean Corpuscular Volume 95 fL (79-100) Mean Corpuscular Hemoglobin 31 pg (25-35) Mean Corpuscular Hemoglobin Concent 33 g/dL (31-37) Red Cell Distribution Width 16.2 % (11.5-14.5) Platelet Count 141 x10^3/uL (140-400) Neutrophils (%) (Auto) 65 % (31-73) Lymphocytes (%) (Auto) 20 % (24-48) Monocytes (%) (Auto) 12 % (0-9) Eosinophils (%) (Auto) 3 % (0-3) Basophils (%) (Auto) 1 % (0-3) Neutrophils # (Auto) 3.8 x10^3uL (1.8-7.7) Lymphocytes # (Auto) 1.2 x10^3/uL (1.0-4.8) Monocytes # (Auto) 0.7 x10^3/uL (0.0-1.1) Eosinophils # (Auto) 0.1 x10^3/uL (0.0-0.7) Basophils # (Auto) 0.0 x10^3/uL (0.0-0.2) Sodium Level 145 mmol/L (136-145) Potassium Level 3.6 mmol/L (3.5-5.1) Chloride Level 104 mmol/L (98-107) Carbon Dioxide Level 39 mmol/L (21-32) Anion Gap 2 (6-14) Blood Urea Nitrogen 16 mg/dL (7-20) Creatinine 1.0 mg/dL (0.6-1.0) Estimated GFR (Cockcroft-Gault) 57.1 Glucose Level 117 mg/dL (70-99) Calcium Level 8.4 mg/dL (8.5-10.1) Microbiology 09/23/18 Blood Culture - Final, Complete NO GROWTH AFTER 5 DAYS Medications Current Medications Methylprednisolone Sodium Succinate (SOLU-Medrol 125MG VIAL) 125 mg 1X ONCE IV Last administered on 09/22/18at 21:38; Start 09/22/18 at 22:00; Stop at 22:01; Status DC Albuterol Sulfate (Ventolin Neb Soln) 10 mg 1X ONCE CONT NEB Last administered on 09/22/18at 21:36; Start 09/22/18 at 22:00; Stop 09/22/18 at 22 :01; Status DC Ipratropium [place] (Atrovent) 0.5 mg 1X ONCE NEB Last administered on at 21:36; Start 09/22/18 at 22:00; Stop 09/22/18 at 22:01; Status DC Lorazepam (Ativan) 2 mg 1X ONCE IV Last administered on 09/22/18at 21:38; Start 09/22/18 at 22:00; Stop 09/22/18 at 22:01; Status DC Propofol 50 ml @ As Directed STK-MED ONCE IV ; Start 09/22/18 at 22:01; Stop 09/22/18 at 22:03; Status DC Etomidate (Amidate) 20 mg STK-MED ONCE IV ; Start 09/22/18 at 22:07; Stop 07/31 at 22:08; Status DC Vecuronium [place] (Norcuron Bolus) 10 mg STK-MED ONCE IV ; Start 09/22/18 at 22:07; Stop 09/22/18 at 22:08; Status DC Etomidate (Amidate) 20 mg 1X ONCE IV Last administered on 09/22/18at 22:05; Start 09/22/18 at 22:45; Stop 09/22/18 at 22:46; Status DC Vecuronium [place] (Norcuron Bolus) 10 mg 1X ONCE IV Last administered on 07/31at 22:05; Start 09/22/18 at 22:45; Stop 09/22/18 at 22:46; Status DC Propofol 100 ml @ 0 mls/hr CONT PRN IV SEE PROTOCOL Last administered on at 22:10; Start 09/22/18 at 22:45; Stop 09/25/18 at 10:11; Status DC Sodium Chloride 1,000 ml @ 1,000 mls/hr 1X ONCE IV Last administered on 09/23at 01:38; Start 09/23/18 at 01:30; Stop 09/23/18 at 02:29; Status DC Sodium Chloride 1,000 ml @ 1,000 mls/hr 1X ONCE IV Last administered on 09/23at 02:08; Start 09/23/18 at 01:30; Stop 09/23/18 at 02:29; Status DC Sodium Chloride 1,000 ml @ 100 mls/hr Q10H IV Last administered on 09/25/18at 07:52; Start 09/23/18 at 02:30; Stop 09/25/18 at 11:10; Status DC Enoxaparin Sodium (Lovenox Per Pharmacy Prophylaxis Dosing) 1 each PRN DAILY PRN MC SEE COMMENTS; Start 09/23/18 at 01:30; Stop 09/23/18 at 07:24; Status DC Midazolam HCl 100 ml @ 5 mls/hr CONT PRN IV SEE I/O RECORD Last administered on 09/23/18at 17:47; Start 09/23/18 at 01:30; Stop 09/25/18 at 10:11; Status DC Enoxaparin Sodium (Lovenox 30mg Syringe) 30 mg QHS SQ Last administered on at 20:35; Start 09/23/18 at 01:30; Stop 09/27/18 at 16:01; Status DC Sodium Chloride 250 ml @ 250 mls/hr 1X ONCE IV Last administered on at 00:30; Start 09/23/18 at 01:45; Stop 09/23/18 at 02:44; Status DC Piperacillin Sod/ Tazobactam Sod (Zosyn Per Pharmacy) 1 each PRN DAILY PRN MC SEE COMMENTS; Start 09/23/18 at 03:30; Stop 09/23/18 at 07:25; Status DC Vancomycin HCl (Vanco Per Pharmacy) 1 each PRN DAILY PRN MC SEE COMMENTS Last administered on 09/25/18at 06:12; Start 09/23/18 at 03:30; Stop 09/25/18 at 07 :38; Status DC Vancomycin HCl 1 gm/Sodium Chloride 250 ml @ 250 mls/hr 1X ONCE IV Last administered on 09/23/18at 03:41; Start 09/23/18 at 04:00; Stop 09/23/18 at 04 :59; Status DC Piperacillin Sod/ Tazobactam Sod 2.25 gm/Sodium Chloride 50 ml @ 100 mls/hr Q6HRS IV Last administered on 09/28/18at 05:34; Start 09/23/18 at 05:00 Vancomycin HCl 500 mg/Dextrose 100 ml @ 100 mls/hr Q24H IV Last administered on 09/24/18at 03:57; Start 09/24/18 at 04:00; Stop 09/25/18 at 04:39; Status DC Vancomycin HCl (Vancomycin Trough Level) 1 each 1X ONCE MC Last administered on 09/25/18at 03:30; Start 09/25/18 at 03:30; Stop 09/25/18 at 03:31; Status DC Albuterol/ Ipratropium (Duoneb) 3 ml 1X ONCE NEB Last administered on at 04:20; Start 09/23/18 at 04:30; Stop 09/23/18 at 04:31; Status DC Pantoprazole Sodium (PROTONIX VIAL for IV PUSH) 40 mg DAILYAC IVP Last administered on 09/27/18at 06:01; Start 09/23/18 at 07:30; Stop 09/27/18 at 12 :12; Status DC Enoxaparin Sodium (Lovenox 40mg Syringe) 40 mg Q24H SQ ; Start 09/24/18 at 08: 00; Status Cancel Oseltamivir Phosphate (Tamiflu Suspension) 75 mg BID NG ; Start 09/23/18 at 09: 00; Stop 09/23/18 at 10:25; Status DC Albuterol/ Ipratropium (Duoneb) 3 ml RTQID NEB Last administered on 09/28/18at 10:44; Start 09/23/18 at 12:00 Oseltamivir Phosphate (Tamiflu Suspension) 30 mg BID NG Last administered on at 21:06; Start 09/23/18 at 10:30; Stop 09/26/18 at 09:09; Status DC Vancomycin HCl 500 mg/Dextrose 100 ml @ 100 mls/hr Q24H IV ; Start 09/25/18 at 04:45; Stop 09/25/18 at 04:46; Status DC Vancomycin HCl 500 mg/Dextrose 100 ml @ 100 mls/hr Q18H IV Last administered on 09/25/18at 04:57; Start 09/25/18 at 05:00; Stop 09/25/18 at 07:38; Status DC Vancomycin HCl (Vancomycin Trough Level) 1 each 1X ONCE MC ; Start 09/25/18 at 22:30; Stop 09/25/18 at 22:31; Status Cancel Amino Acids/ Glycerin/ Electrolytes 1,000 ml @ 60 mls/hr [id number] IV Last administered on 09/26/18at 03:25; Start 09/25/18 at 11:00; Stop 09/26/18 at 14 :05; Status DC Lidocaine (Lidoderm) 1 patch PRN DAILY PRN TD PAIN Last administered on at 23:24; Start 09/25/18 at 23:00 Acetaminophen (Tylenol) 500 mg PRN Q6HRS PRN PO MILD PAIN / TEMP; Start at 08:45 Acetaminophen/ Codeine Phosphate (Tylenol #3) 1 tab PRN Q6HRS PRN PO MODERATE PAIN; Start 09/26/18 at 08:45 Ibuprofen (Motrin) 400 mg PRN Q6HRS PRN PO INFLAMMATION; Start 09/26/18 at 08: 45 Metoprolol Succinate (Toprol Xl) 25 mg DAILY PO Last administered on at 08:58; Start 09/26/18 at 15:00 Non-Formulary Medication (Albuterol Sulfate (Proair Hfa Inhaler)) 2 puff PRN Q4- 6HRS PRN IH SHORTNESS OF BREATH; Start 09/26/18 at 14:00; Stop 09/26/18 at 14: 13; Status DC Citalopram Hydrobromide (CeleXA) 10 mg DAILY PO Last administered on at 08:58; Start 09/26/18 at 15:00 Mirtazapine (Remeron) 15 mg QHS PO Last administered on 09/27/18at 20:39; Start 09/26/18 at 21:00 Non-Formulary Medication (Omeprazole ) 1 cap DAILY PO ; Start 09/27/18 at 09:00 ; Stop 09/27/18 at 09:00; Status DC Non-Formulary Medication (Omeprazole ) 40 mg DAILY PO ; Start 09/27/18 at 09:00 ; Stop 09/27/18 at 09:00; Status DC Albuterol Sulfate (Ventolin Neb Soln) 2.5 mg PRN Q4HRS PRN NEB SHORTNESS OF BREATH; Start 09/26/18 at 14:15 Albuterol/ Ipratropium (Duoneb) 3 ml STK-MED ONCE .ROUTE ; Start 09/27/18 at 06 :53; Stop 09/27/18 at 06:54; Status DC Pantoprazole Sodium (Protonix) 40 mg DAILYAC PO Last administered on at 07:51; Start 09/28/18 at 07:30 Enoxaparin Sodium (Lovenox 40mg Syringe) 40 mg QHS SQ Last administered on at 20:40; Start 09/27/18 at 16:15 Lactobacillus Rhamnosus (Culturelle) 1 cap BID PO Last administered on at 08:57; Start 09/27/18 at 21:00 Active Scripts Active Reported Mirtazapine 15 Mg Tablet 15 Mg PO DAILY Escitalopram Oxalate 5 Mg Tablet 5 Mg PO DAILY Metoprolol Succinate ( Xl ) (Metoprolol Succinate) 25 Mg Tab.er.24h 1 Tab PO DAILY Omeprazole 40 Mg Capsule. 40 Mg PO DAILY Albuterol Sulfate Neb Soln (Albuterol Sulfate) 2.5 Mg/3 Ml Vial.neb 2.5 Mg NEB PRN Proair Hfa Inhaler (Albuterol Sulfate) 8.5 Gm Hfa.aer.ad 2 Puff IH PRN Q4-6HRS PRN Omeprazole 20 Mg Capsule. 1 Cap PO DAILY Vitals/I & O Vital Sign - Last 24 Hours 09/27/18 09/27/18 09/27/18 09/27/18 14:56 15:00 19:00 19:24 Temp 98.5 97.9 98.5 97.9 Pulse 97 99 Resp 17 18 B/P (MAP) 103/70 (81) 101/69 (80) Pulse Ox 93 94 94 O2 Delivery Nasal Cannula BiPAP/CPAP Nasal Cannula Nasal Cannula O2 Flow Rate 2.0 2.0 2.0 09/27/18 09/27/18 09/27/18 09/27/18 20:06 20:06 23:00 23:43 Temp 98.2 98.2 Pulse 93 Resp 18 B/P (MAP) 110/74 (86) Pulse Ox 90 96 O2 Delivery Nasal Cannula Nasal Cannula BiPAP/CPAP O2 Flow Rate 2.0 2.0 2.0 09/28/18 09/28/18 09/28/18 09/28/18 02:59 07:00 07:37 07:45 Temp 98.2 98.2 98.2 98.2 Pulse 88 98 Resp 18 18 B/P (MAP) 111/66 (81) 117/76 (90) Pulse Ox 97 95 97 O2 Delivery Nasal Cannula Nasal Cannula Nasal Cannula O2 Flow Rate 2.0 2.0 2.0 09/28/18 09/28/18 09/28/18 07:45 08:58 10:45 B/P (MAP) 117/76 Pulse Ox 88 O2 Delivery Nasal Cannula Nasal Cannula O2 Flow Rate 2.0 2.0 Intake and Output 09/27/18 09/27/18 09/28/18 15:00 23:00 07:00 Intake Total 640 ml 625 ml 100 ml Output Total 1100 ml 400 ml Balance 640 ml -475 ml -300 ml Nutrition Consultation Dietary Evaluation: Recommendations by RD: PPN/TPN Comments: Continue w/PPN for short-term nutrition needs If extended NPO, recommend feeding tube placement for tube feeding to better meet nutrition needs if appropriate per goals of care Expected Outcomes/Goals: TF initiation/infusion for nutrition needs while pt remains intubated - met, new goal established New goal 09/25: PPN for short-term nutrition needs while pt remains NPO/nutrition as appropriate per goals of care Malnutrition Findings: Body Fat Depletion (Non Severe: Mod to Severe Weight Status: Emaciated SHIRA BRUSH MD Sep 28, 2018 11:05
[2018-09-28] MEDS ORDERED: POTASSIUM CHLORIDE 20 MEQ TABLET.ER. PO ONE (11:15)
--- NOTE | 2018-09-28 12:05 | PDOC ---
Infectious Disease Note Subjective Subjective wants to go home Hasn't been out of bed yet today + cough Denies SOA/CP/F/C/N/V/D ROS ROS per HPI otherwise neg Vital Sign Vital Signs Vital Signs Date Time Temp Pulse Resp B/P (MAP) Pulse Ox O2 Delivery O2 Flow Rate FiO2 09/28/18 11:00 98.3 95 18 90/55 (67) 89 Nasal Cannula 98.3 09/28/18 10:45 2.0 Physical Exam PHYSICAL EXAM GENERAL: More alert, conversant HEENT: Oral cavity clear NECK: Supple. LUNGS: Decreased breath sounds, nonlabored HEART: S1, S2 ABDOMEN: Soft, nontender : Dan EXTREMITIES: No edema, no cyanosis, no clubbing. NEUROLOGIC: Alert, oriented, DERMATOLOGIC: Warm, dry, no generalized rash. PIV Labs Lab Laboratory Tests Test 09/27/18 17:14 09/28/18 04:30 Glucose (Fingerstick) 125 mg/dL (70-99) White Blood Count 5.8 x10^3/uL (4.0-11.0) Red Blood Count 3.18 x10^6/uL (3.50-5.40) Hemoglobin 9.9 g/dL (12.0-15.5) Hematocrit 30.1 % (36.0-47.0) Mean Corpuscular Volume 95 fL (79-100) Mean Corpuscular Hemoglobin 31 pg (25-35) Mean Corpuscular Hemoglobin Concent 33 g/dL (31-37) Red Cell Distribution Width 16.2 % (11.5-14.5) Platelet Count 141 x10^3/uL (140-400) Neutrophils (%) (Auto) 65 % (31-73) Lymphocytes (%) (Auto) 20 % (24-48) Monocytes (%) (Auto) 12 % (0-9) Eosinophils (%) (Auto) 3 % (0-3) Basophils (%) (Auto) 1 % (0-3) Neutrophils # (Auto) 3.8 x10^3uL (1.8-7.7) Lymphocytes # (Auto) 1.2 x10^3/uL (1.0-4.8) Monocytes # (Auto) 0.7 x10^3/uL (0.0-1.1) Eosinophils # (Auto) 0.1 x10^3/uL (0.0-0.7) Basophils # (Auto) 0.0 x10^3/uL (0.0-0.2) Sodium Level 145 mmol/L (136-145) Potassium Level 3.6 mmol/L (3.5-5.1) Chloride Level 104 mmol/L (98-107) Carbon Dioxide Level 39 mmol/L (21-32) Anion Gap 2 (6-14) Blood Urea Nitrogen 16 mg/dL (7-20) Creatinine 1.0 mg/dL (0.6-1.0) Estimated GFR (Cockcroft-Gault) 57.1 Glucose Level 117 mg/dL (70-99) Calcium Level 8.4 mg/dL (8.5-10.1) Improved aeration of the right lung base with residual small right pleural effusion and patchy airspace disease. Minimal fluid is suspected to be loculated within the minor fissure. Left lung is predominantly clear. No pulmonary vascular congestion or pneumothorax. IMPRESSION: Improved aeration of the right lung base with small residual pleural effusion and adjacent patchy airspace disease. Micro Microbiology 09/23/18 Blood Culture - Preliminary, Resulted NO GROWTH AFTER 4 DAYS Objective Assessment Fever source likely respiratory. flu screen neg, resolved Acute resp failure s/p intubation now extubated requiring BiPAP and VM, mucus plug - improving Anemia/thrombocytopenia Lactic acidosis resolved Hypotension requiring pressors,now off pressors Encephalopathy resolved COPD History of bronchiectasis. Plan Plan of Care DC Zosyn, transition to augmentin BC NGTD Supportive care DNR/DNI PT and OT as tolerated Patient seen, examined, I agree with assessment and plan MERCED ROMERO APRN Sep 28, 2018 12:05 EMPERATRIZ FOWLER MD Sep 28, 2018 15:13
[2018-09-28 15:00] VITALS: BP 109/68
[2018-09-28 19:00] VITALS: BP 119/80
[2018-09-28] MEDS: AMOXICILLIN/K CLAV 875/125MG TABLET. PO SCH (20:27)
[2018-09-28] MEDS: MIRTAZAPINE 15 MG TABLET PO SCH (20:27)
[2018-09-28] MEDS: ENOXAPARIN 40 MG/0.4 ML SYRINGE. SQ SCH (20:29)
[2018-09-28 23:00] VITALS: BP 111/74
[2018-09-29 03:00] VITALS: BP 103/72
[2018-09-29 07:00] VITALS: BP 123/72
[2018-09-29] MEDS: IPRATRPIUM/ALBUTEROL 0.5/2.5MG 3 ML NEBU. NEB SCH ×4 (07:30→19:30)
[2018-09-29] MEDS: PANTOPRAZOLE 40 MG TABLET.DR. PO SCH (07:47)
[2018-09-29] MEDS: AMOXICILLIN/K CLAV 875/125MG TABLET. PO SCH ×2 (09:17→22:06)
[2018-09-29] MEDS: METOPROLOL SUCC 24HR ER 25 MG TAB.ER.24H. PO SCH (09:18)
[2018-09-29] MEDS: CITALOPRAM 10 MG TABLET. PO SCH (09:18)
[2018-09-29] MEDS: LACTOBACILLUS RHAMNOSUS GG 1 CAPSULE. PO SCH ×2 (09:18→22:06)
--- NOTE | 2018-09-29 10:03 | PDOC ---
PROGRESS NOTES Chief Complaint Chief Complaint Severe hypercapnic/hypoxic respiratory failure, intubated for C02 (>200s) EXTBATED 09/24/18 Heavy smoker Undernourished, cachexia BMI 13 Low grade Temperatures, sepsis with no organ dysfunction HTN NEEDS BIPAP AT NIGHT, WITH ALL SLEEP History of Present Illness History of Present Illness Extubated 09/24/18 Needed BiPAP at night Now ABGs much better Feels weak, dry lips- so thirsty,eats fine pt lives alone. She wishes to leave, still on iv antibiotics, radford in place, needed full assist with walker to get to bathroom for BM today. CXR today - Improved aeration of the right lung base with small residual pleural effusion and adjacent patchy airspace disease. Plan: BiPAP at night Cont metoprolol if BP >100 fu with pulm, on zosyn PTOT, Recommend SNF SW consult PAT Consulted DNR Vitals Vitals Vital Signs Date Time Temp Pulse Resp B/P (MAP) Pulse Ox O2 Delivery O2 Flow Rate FiO2 09/29/18 09:18 92 103/72 09/29/18 07:45 Nasal Cannula 2.0 09/29/18 07:00 98.1 18 90 98.1 Physical Exam Physical Exam GENERAL: More alert, conversant HEENT: Oral cavity clear NECK: Supple. LUNGS: Decreased breath sounds, nonlabored HEART: S1, S2 ABDOMEN: Soft, nontender : Radford EXTREMITIES: No edema, no cyanosis, no clubbing. NEUROLOGIC: Alert, oriented, DERMATOLOGIC: Warm, dry, no generalized rash. PIV General: Alert, Oriented X3, Cooperative, No acute distress, Other ( undernourished, minimal subcutaneous tissue, BMI of 13) Heart: Regular rate Lungs: Other (decrease right lung) Abdomen: Normal bowel sounds, Soft, No tenderness, No hepatosplenomegaly, No masses Extremities: No clubbing, No cyanosis, No edema, Normal pulses, No tenderness/ swelling Skin: No rashes, No breakdown, No significant lesion Labs LABS Chest radiograph 09/28/2018 7:00 AM INDICATION: Right mucous plug COMPARISON: September 26, 2018 TECHNIQUE: Portable upright frontal view of the chest is provided. FINDINGS: The cardiomediastinal silhouette is within normal limits. Improved aeration of the right lung base with residual small right pleural effusion and patchy airspace disease. Minimal fluid is suspected to be loculated within the minor fissure. Left lung is predominantly clear. No pulmonary vascular congestion or pneumothorax. IMPRESSION: Improved aeration of the right lung base with small residual pleural effusion and adjacent patchy airspace disease. Electronically signed by: Steve Munoz MD (09/28/2018 8:52 AM) [facility] DICTATED and SIGNED BY: STEVE MUNOZ MD DATE: 09/28/18 0851 Assessment and Plan Assessmemt and Plan Problems Medical Problems: (1) Acute respiratory failure with hypercapnia Status: Acute (2) COPD with acute exacerbation Status: Acute Comment Review of Relevant I have reviewed the following items alexsander (where applicable) has been applied. Labs Laboratory Tests Test 09/27/18 11:51 09/27/18 17:14 09/28/18 04:30 Glucose (Fingerstick) 122 mg/dL (70-99) 125 mg/dL (70-99) White Blood Count 5.8 x10^3/uL (4.0-11.0) Red Blood Count 3.18 x10^6/uL (3.50-5.40) Hemoglobin 9.9 g/dL (12.0-15.5) Hematocrit 30.1 % (36.0-47.0) Mean Corpuscular Volume 95 fL (79-100) Mean Corpuscular Hemoglobin 31 pg (25-35) Mean Corpuscular Hemoglobin Concent 33 g/dL (31-37) Red Cell Distribution Width 16.2 % (11.5-14.5) Platelet Count 141 x10^3/uL (140-400) Neutrophils (%) (Auto) 65 % (31-73) Lymphocytes (%) (Auto) 20 % (24-48) Monocytes (%) (Auto) 12 % (0-9) Eosinophils (%) (Auto) 3 % (0-3) Basophils (%) (Auto) 1 % (0-3) Neutrophils # (Auto) 3.8 x10^3uL (1.8-7.7) Lymphocytes # (Auto) 1.2 x10^3/uL (1.0-4.8) Monocytes # (Auto) 0.7 x10^3/uL (0.0-1.1) Eosinophils # (Auto) 0.1 x10^3/uL (0.0-0.7) Basophils # (Auto) 0.0 x10^3/uL (0.0-0.2) Sodium Level 145 mmol/L (136-145) Potassium Level 3.6 mmol/L (3.5-5.1) Chloride Level 104 mmol/L (98-107) Carbon Dioxide Level 39 mmol/L (21-32) Anion Gap 2 (6-14) Blood Urea Nitrogen 16 mg/dL (7-20) Creatinine 1.0 mg/dL (0.6-1.0) Estimated GFR (Cockcroft-Gault) 57.1 Glucose Level 117 mg/dL (70-99) Calcium Level 8.4 mg/dL (8.5-10.1) Microbiology 09/23/18 Blood Culture - Final, Complete NO GROWTH AFTER 5 DAYS Medications Current Medications Methylprednisolone Sodium Succinate (SOLU-Medrol 125MG VIAL) 125 mg 1X ONCE IV Last administered on 09/22/18at 21:38; Start 09/22/18 at 22:00; Stop at 22:01; Status DC Albuterol Sulfate (Ventolin Neb Soln) 10 mg 1X ONCE CONT NEB Last administered on 09/22/18at 21:36; Start 09/22/18 at 22:00; Stop 09/22/18 at 22 :01; Status DC Ipratropium [place] (Atrovent) 0.5 mg 1X ONCE NEB Last administered on at 21:36; Start 09/22/18 at 22:00; Stop 09/22/18 at 22:01; Status DC Lorazepam (Ativan) 2 mg 1X ONCE IV Last administered on 09/22/18at 21:38; Start 09/22/18 at 22:00; Stop 09/22/18 at 22:01; Status DC Propofol 50 ml @ As Directed STK-MED ONCE IV ; Start 09/22/18 at 22:01; Stop 09/22/18 at 22:03; Status DC Etomidate (Amidate) 20 mg STK-MED ONCE IV ; Start 09/22/18 at 22:07; Stop 07/31 at 22:08; Status DC Vecuronium [place] (Norcuron Bolus) 10 mg STK-MED ONCE IV ; Start 09/22/18 at 22:07; Stop 09/22/18 at 22:08; Status DC Etomidate (Amidate) 20 mg 1X ONCE IV Last administered on 09/22/18at 22:05; Start 09/22/18 at 22:45; Stop 09/22/18 at 22:46; Status DC Vecuronium [place] (Norcuron Bolus) 10 mg 1X ONCE IV Last administered on 07/31at 22:05; Start 09/22/18 at 22:45; Stop 09/22/18 at 22:46; Status DC Propofol 100 ml @ 0 mls/hr CONT PRN IV SEE PROTOCOL Last administered on at 22:10; Start 09/22/18 at 22:45; Stop 09/25/18 at 10:11; Status DC Sodium Chloride 1,000 ml @ 1,000 mls/hr 1X ONCE IV Last administered on 09/23at 01:38; Start 09/23/18 at 01:30; Stop 09/23/18 at 02:29; Status DC Sodium Chloride 1,000 ml @ 1,000 mls/hr 1X ONCE IV Last administered on 09/23at 02:08; Start 09/23/18 at 01:30; Stop 09/23/18 at 02:29; Status DC Sodium Chloride 1,000 ml @ 100 mls/hr Q10H IV Last administered on 09/25/18at 07:52; Start 09/23/18 at 02:30; Stop 09/25/18 at 11:10; Status DC Enoxaparin Sodium (Lovenox Per Pharmacy Prophylaxis Dosing) 1 each PRN DAILY PRN MC SEE COMMENTS; Start 09/23/18 at 01:30; Stop 09/23/18 at 07:24; Status DC Midazolam HCl 100 ml @ 5 mls/hr CONT PRN IV SEE I/O RECORD Last administered on 09/23/18at 17:47; Start 09/23/18 at 01:30; Stop 09/25/18 at 10:11; Status DC Enoxaparin Sodium (Lovenox 30mg Syringe) 30 mg QHS SQ Last administered on at 20:35; Start 09/23/18 at 01:30; Stop 09/27/18 at 16:01; Status DC Sodium Chloride 250 ml @ 250 mls/hr 1X ONCE IV Last administered on at 00:30; Start 09/23/18 at 01:45; Stop 09/23/18 at 02:44; Status DC Piperacillin Sod/ Tazobactam Sod (Zosyn Per Pharmacy) 1 each PRN DAILY PRN MC SEE COMMENTS; Start 09/23/18 at 03:30; Stop 09/23/18 at 07:25; Status DC Vancomycin HCl (Vanco Per Pharmacy) 1 each PRN DAILY PRN MC SEE COMMENTS Last administered on 09/25/18at 06:12; Start 09/23/18 at 03:30; Stop 09/25/18 at 07 :38; Status DC Vancomycin HCl 1 gm/Sodium Chloride 250 ml @ 250 mls/hr 1X ONCE IV Last administered on 09/23/18at 03:41; Start 09/23/18 at 04:00; Stop 09/23/18 at 04 :59; Status DC Piperacillin Sod/ Tazobactam Sod 2.25 gm/Sodium Chloride 50 ml @ 100 mls/hr Q6HRS IV Last administered on 09/28/18at 11:39; Start 09/23/18 at 05:00; Stop 09/28/18 at 15:14; Status DC Vancomycin HCl 500 mg/Dextrose 100 ml @ 100 mls/hr Q24H IV Last administered on 09/24/18at 03:57; Start 09/24/18 at 04:00; Stop 09/25/18 at 04:39; Status DC Vancomycin HCl (Vancomycin Trough Level) 1 each 1X ONCE MC Last administered on 09/25/18at 03:30; Start 09/25/18 at 03:30; Stop 09/25/18 at 03:31; Status DC Albuterol/ Ipratropium (Duoneb) 3 ml 1X ONCE NEB Last administered on at 04:20; Start 09/23/18 at 04:30; Stop 09/23/18 at 04:31; Status DC Pantoprazole Sodium (PROTONIX VIAL for IV PUSH) 40 mg DAILYAC IVP Last administered on 09/27/18at 06:01; Start 09/23/18 at 07:30; Stop 09/27/18 at 12 :12; Status DC Enoxaparin Sodium (Lovenox 40mg Syringe) 40 mg Q24H SQ ; Start 09/24/18 at 08: 00; Status Cancel Oseltamivir Phosphate (Tamiflu Suspension) 75 mg BID NG ; Start 09/23/18 at 09: 00; Stop 09/23/18 at 10:25; Status DC Albuterol/ Ipratropium (Duoneb) 3 ml RTQID NEB Last administered on 09/29/18at 07:30; Start 09/23/18 at 12:00 Oseltamivir Phosphate (Tamiflu Suspension) 30 mg BID NG Last administered on at 21:06; Start 09/23/18 at 10:30; Stop 09/26/18 at 09:09; Status DC Vancomycin HCl 500 mg/Dextrose 100 ml @ 100 mls/hr Q24H IV ; Start 09/25/18 at 04:45; Stop 09/25/18 at 04:46; Status DC Vancomycin HCl 500 mg/Dextrose 100 ml @ 100 mls/hr Q18H IV Last administered on 09/25/18at 04:57; Start 09/25/18 at 05:00; Stop 09/25/18 at 07:38; Status DC Vancomycin HCl (Vancomycin Trough Level) 1 each 1X ONCE MC ; Start 09/25/18 at 22:30; Stop 09/25/18 at 22:31; Status Cancel Amino Acids/ Glycerin/ Electrolytes 1,000 ml @ 60 mls/hr [id number] IV Last administered on 09/26/18at 03:25; Start 09/25/18 at 11:00; Stop 09/26/18 at 14 :05; Status DC Lidocaine (Lidoderm) 1 patch PRN DAILY PRN TD PAIN Last administered on at 23:24; Start 09/25/18 at 23:00 Acetaminophen (Tylenol) 500 mg PRN Q6HRS PRN PO MILD PAIN / TEMP Last administered on 09/28/18at 20:27; Start 09/26/18 at 08:45 Acetaminophen/ Codeine Phosphate (Tylenol #3) 1 tab PRN Q6HRS PRN PO MODERATE PAIN; Start 09/26/18 at 08:45 Ibuprofen (Motrin) 400 mg PRN Q6HRS PRN PO INFLAMMATION; Start 09/26/18 at 08: 45 Metoprolol Succinate (Toprol Xl) 25 mg DAILY PO Last administered on at 09:18; Start 09/26/18 at 15:00 Non-Formulary Medication (Albuterol Sulfate (Proair Hfa Inhaler)) 2 puff PRN Q4- 6HRS PRN IH SHORTNESS OF BREATH; Start 09/26/18 at 14:00; Stop 09/26/18 at 14: 13; Status DC Citalopram Hydrobromide (CeleXA) 10 mg DAILY PO Last administered on at 09:18; Start 09/26/18 at 15:00 Mirtazapine (Remeron) 15 mg QHS PO Last administered on 09/28/18at 20:27; Start 09/26/18 at 21:00 Non-Formulary Medication (Omeprazole ) 1 cap DAILY PO ; Start 09/27/18 at 09:00 ; Stop 09/27/18 at 09:00; Status DC Non-Formulary Medication (Omeprazole ) 40 mg DAILY PO ; Start 09/27/18 at 09:00 ; Stop 09/27/18 at 09:00; Status DC Albuterol Sulfate (Ventolin Neb Soln) 2.5 mg PRN Q4HRS PRN NEB SHORTNESS OF BREATH; Start 09/26/18 at 14:15 Albuterol/ Ipratropium (Duoneb) 3 ml STK-MED ONCE .ROUTE ; Start 09/27/18 at 06 :53; Stop 09/27/18 at 06:54; Status DC Pantoprazole Sodium (Protonix) 40 mg DAILYAC PO Last administered on at 07:47; Start 09/28/18 at 07:30 Enoxaparin Sodium (Lovenox 40mg Syringe) 40 mg QHS SQ Last administered on at 20:29; Start 09/27/18 at 16:15 Lactobacillus Rhamnosus (Culturelle) 1 cap BID PO Last administered on at 09:18; Start 09/27/18 at 21:00 Potassium Chloride (Klor-Con) 40 meq 1X ONCE PO Last administered on at 11:36; Start 09/28/18 at 11:15; Stop 09/28/18 at 11:16; Status DC Amoxicillin/ Clavulanate Potassium (Augmentin 875/ 125mg) 1 tab BID PO Last administered on 09/29/18at 09:17; Start 09/28/18 at 21:00 Active Scripts Active Reported Mirtazapine 15 Mg Tablet 15 Mg PO DAILY Escitalopram Oxalate 5 Mg Tablet 5 Mg PO DAILY Metoprolol Succinate ( Xl ) (Metoprolol Succinate) 25 Mg Tab.er.24h 1 Tab PO DAILY Omeprazole 40 Mg Capsule. 40 Mg PO DAILY Albuterol Sulfate Neb Soln (Albuterol Sulfate) 2.5 Mg/3 Ml Vial.neb 2.5 Mg NEB PRN Proair Hfa Inhaler (Albuterol Sulfate) 8.5 Gm Hfa.aer.ad 2 Puff IH PRN Q4-6HRS PRN Omeprazole 20 Mg Capsule. 1 Cap PO DAILY Vitals/I & O Vital Sign - Last 24 Hours 09/28/18 09/28/18 09/28/18 09/28/18 10:45 11:00 15:00 15:03 Temp 98.3 98.7 98.3 98.7 Pulse 95 96 Resp 18 20 B/P (MAP) 90/55 (67) 109/68 (82) Pulse Ox 88 89 O2 Delivery Nasal Cannula Nasal Cannula Nasal Cannula Nasal Cannula O2 Flow Rate 2.0 2.0 2.0 09/28/18 09/28/18 09/28/18 09/28/18 19:00 19:26 19:51 19:51 Temp 98.4 98.4 Pulse 95 Resp 18 B/P (MAP) 119/80 (93) Pulse Ox 98 O2 Delivery Nasal Cannula Nasal Cannula Nasal Cannula O2 Flow Rate 2.0 2.0 2.0 2.0 09/28/18 09/29/18 09/29/18 09/29/18 23:00 03:00 07:00 07:30 Temp 97.8 98.7 98.1 97.8 98.7 98.1 Pulse 87 92 93 Resp 18 18 18 B/P (MAP) 111/74 (86) 103/72 (82) 123/72 (89) Pulse Ox 99 96 90 O2 Delivery Nasal Cannula Nasal Cannula Nasal Cannula Nasal Cannula O2 Flow Rate 2.0 2.0 2.0 2.0 09/29/18 09/29/18 09/29/18 07:45 07:45 09:18 Pulse 92 B/P (MAP) 103/72 O2 Delivery Nasal Cannula O2 Flow Rate 2.0 2.0 Intake and Output 09/28/18 09/28/18 09/29/18 15:00 23:00 07:00 Intake Total 270 ml 360 ml Output Total 300 ml Balance 270 ml 60 ml Nutrition Consultation Dietary Evaluation: Recommendations by RD: PPN/TPN Comments: Continue w/PPN for short-term nutrition needs If extended NPO, recommend feeding tube placement for tube feeding to better meet nutrition needs if appropriate per goals of care Expected Outcomes/Goals: TF initiation/infusion for nutrition needs while pt remains intubated - met, new goal established New goal 09/25: PPN for short-term nutrition needs while pt remains NPO/nutrition as appropriate per goals of care Malnutrition Findings: Body Fat Depletion (Non Severe: Mod to Severe Weight Status: Emaciated LES BOYD MD Sep 29, 2018 10:03
[2018-09-29 11:00] VITALS: BP 102/64
--- NOTE | 2018-09-29 14:30 | PDOC ---
Infectious Disease Note Subjective Subjective hoping to go home Hasn't been out of bed yet today + cough Denies SOA/CP/F/C/N/V/D Vital Sign Vital Signs Vital Signs Date Time Temp Pulse Resp B/P (MAP) Pulse Ox O2 Delivery O2 Flow Rate FiO2 09/29/18 13:17 Nasal Cannula 2.0 09/29/18 11:00 98.4 91 18 102/64 (77) 96 98.4 Physical Exam PHYSICAL EXAM GENERAL: More alert, conversant - sleeping initially HEENT: Oral cavity clear NECK: Supple. LUNGS: Decreased breath sounds, nonlabored HEART: S1, S2 ABDOMEN: Soft, nontender : Dan EXTREMITIES: No edema, no cyanosis, no clubbing. NEUROLOGIC: Alert, oriented, DERMATOLOGIC: Warm, dry, no generalized rash. PIV Labs Micro Microbiology 09/23/18 Blood Culture - Final, Complete NO GROWTH AFTER 5 DAYS Objective Assessment Fever source likely respiratory. flu screen neg, resolved Acute resp failure s/p intubation now extubated requiring BiPAP and VM, mucus plug - improving Anemia/thrombocytopenia Lactic acidosis resolved Hypotension requiring pressors,now off pressors Encephalopathy resolved COPD History of bronchiectasis. Plan Plan of Care Cont augmentin for 5 days DNR/DNI ID to sign off ALPESH KELLY MD Sep 29, 2018 14:30
[2018-09-29 15:00] VITALS: BP 113/50
--- NOTE | 2018-09-29 15:02 | PDOC3 ---
Discharge Summary Date of Admission: Sep 23, 2018 Date of Discharge: Sep 29, 2018 Follow-Up: 3-5 days Admitting Diagnosis comment: DISCHARGE DIAGNOSIS Chief Complaint Severe hypercapnic/hypoxic respiratory failure, intubated for C02 (>200s) EXTBATED 09/24/18 Heavy smoker, AGREES TO STOP Undernourished, cachexia BMI 13 Low grade Temperatures, sepsis with no organ dysfunction HTN MUCOUS PLUGGING NEEDS BIPAP AT NIGHT, WITH ALL SLEEP History of Present Illness History of Present Illness Extubated 09/24/18 Needed BiPAP at night Now ABGs much better Feels weak, dry lips- so thirsty,eats fine pt lives alone. She wishes to leave, still on iv antibiotics, radford in place, needed full assist with walker to get to bathroom for BM today. CXR today - Improved aeration of the right lung base with small residual pleural effusion and adjacent patchy airspace disease. Plan: BiPAP at night Cont metoprolol if BP >100 fu with pulm, on zosyn PTOT, Recommend SNF PT REFUSED AMA SW consult PAT Consulted DNR Vitals Vitals Vital Signs Date Time Temp Pulse Resp B/P (MAP) Pulse Ox O2 Delivery O2 Flow Rate FiO2 09/29/18 09:18 92 103/72 09/29/18 07:45 Nasal Cannula 2.0 09/29/18 07:00 98.1 18 90 98.1 Physical Exam Physical Exam GENERAL: More alert, conversant HEENT: Oral cavity clear NECK: Supple. LUNGS: Decreased breath sounds, nonlabored HEART: S1, S2 ABDOMEN: Soft, nontender : Radford EXTREMITIES: No edema, no cyanosis, no clubbing. NEUROLOGIC: Alert, oriented, DERMATOLOGIC: Warm, dry, no generalized rash. PIV General: Alert, Oriented X3, Cooperative, No acute distress, Other ( undernourished, minimal subcutaneous tissue, BMI of 13) Heart: Regular rate Lungs: Other (decrease right lung) Abdomen: Normal bowel sounds, Soft, No tenderness, No hepatosplenomegaly, No masses Extremities: No clubbing, No cyanosis, No edema, Normal pulses, No tenderness/ swelling Skin: No rashes, No breakdown, No significant lesion Labs LABS Chest radiograph 09/28/2018 7:00 AM INDICATION: Right mucous plug COMPARISON: September 26, 2018 TECHNIQUE: Portable upright frontal view of the chest is provided. FINDINGS: The cardiomediastinal silhouette is within normal limits. Improved aeration of the right lung base with residual small right pleural effusion and patchy airspace disease. Minimal fluid is suspected to be loculated within the minor fissure. Left lung is predominantly clear. No pulmonary vascular congestion or pneumothorax. IMPRESSION: Improved aeration of the right lung base with small residual pleural effusion and adjacent patchy airspace disease. Electronically signed by: Manuela Richardson MD (09/28/2018 8:52 AM) [facility] FINAL DIAGNOSIS Problems Medical Problems: (1) Acute respiratory failure with hypercapnia Status: Acute (2) COPD with acute exacerbation Status: Acute Brief Hospital Course Ms. Anderson is a 57 old [sex] who presented with [ ACUTE RESP FAILURE] CONDITION AT DISCHARGE: Comment (GUARDED) Discharge Medications Current Medications Methylprednisolone Sodium Succinate (SOLU-Medrol 125MG VIAL) 125 mg 1X ONCE IV Last administered on 09/22/18at 21:38; Start 09/22/18 at 22:00; Stop at 22:01; Status DC Albuterol Sulfate (Ventolin Neb Soln) 10 mg 1X ONCE CONT NEB Last administered on 09/22/18at 21:36; Start 09/22/18 at 22:00; Stop 09/22/18 at 22 :01; Status DC Ipratropium [place] (Atrovent) 0.5 mg 1X ONCE NEB Last administered on at 21:36; Start 09/22/18 at 22:00; Stop 09/22/18 at 22:01; Status DC Lorazepam (Ativan) 2 mg 1X ONCE IV Last administered on 09/22/18at 21:38; Start 09/22/18 at 22:00; Stop 09/22/18 at 22:01; Status DC Propofol 50 ml @ As Directed STK-MED ONCE IV ; Start 09/22/18 at 22:01; Stop 09/22/18 at 22:03; Status DC Etomidate (Amidate) 20 mg STK-MED ONCE IV ; Start 09/22/18 at 22:07; Stop 07/31 at 22:08; Status DC Vecuronium [place] (Norcuron Bolus) 10 mg STK-MED ONCE IV ; Start 09/22/18 at 22:07; Stop 09/22/18 at 22:08; Status DC Etomidate (Amidate) 20 mg 1X ONCE IV Last administered on 09/22/18at 22:05; Start 09/22/18 at 22:45; Stop 09/22/18 at 22:46; Status DC Vecuronium [place] (Norcuron Bolus) 10 mg 1X ONCE IV Last administered on 07/31at 22:05; Start 09/22/18 at 22:45; Stop 09/22/18 at 22:46; Status DC Propofol 100 ml @ 0 mls/hr CONT PRN IV SEE PROTOCOL Last administered on at 22:10; Start 09/22/18 at 22:45; Stop 09/25/18 at 10:11; Status DC Sodium Chloride 1,000 ml @ 1,000 mls/hr 1X ONCE IV Last administered on 09/23at 01:38; Start 09/23/18 at 01:30; Stop 09/23/18 at 02:29; Status DC Sodium Chloride 1,000 ml @ 1,000 mls/hr 1X ONCE IV Last administered on 09/23at 02:08; Start 09/23/18 at 01:30; Stop 09/23/18 at 02:29; Status DC Sodium Chloride 1,000 ml @ 100 mls/hr Q10H IV Last administered on 09/25/18at 07:52; Start 09/23/18 at 02:30; Stop 09/25/18 at 11:10; Status DC Enoxaparin Sodium (Lovenox Per Pharmacy Prophylaxis Dosing) 1 each PRN DAILY PRN MC SEE COMMENTS; Start 09/23/18 at 01:30; Stop 09/23/18 at 07:24; Status DC Midazolam HCl 100 ml @ 5 mls/hr CONT PRN IV SEE I/O RECORD Last administered on 09/23/18at 17:47; Start 09/23/18 at 01:30; Stop 09/25/18 at 10:11; Status DC Enoxaparin Sodium (Lovenox 30mg Syringe) 30 mg QHS SQ Last administered on at 20:35; Start 09/23/18 at 01:30; Stop 09/27/18 at 16:01; Status DC Sodium Chloride 250 ml @ 250 mls/hr 1X ONCE IV Last administered on at 00:30; Start 09/23/18 at 01:45; Stop 09/23/18 at 02:44; Status DC Piperacillin Sod/ Tazobactam Sod (Zosyn Per Pharmacy) 1 each PRN DAILY PRN MC SEE COMMENTS; Start 09/23/18 at 03:30; Stop 09/23/18 at 07:25; Status DC Vancomycin HCl (Vanco Per Pharmacy) 1 each PRN DAILY PRN MC SEE COMMENTS Last administered on 09/25/18at 06:12; Start 09/23/18 at 03:30; Stop 09/25/18 at 07 :38; Status DC Vancomycin HCl 1 gm/Sodium Chloride 250 ml @ 250 mls/hr 1X ONCE IV Last administered on 09/23/18at 03:41; Start 09/23/18 at 04:00; Stop 09/23/18 at 04 :59; Status DC Piperacillin Sod/ Tazobactam Sod 2.25 gm/Sodium Chloride 50 ml @ 100 mls/hr Q6HRS IV Last administered on 09/28/18at 11:39; Start 09/23/18 at 05:00; Stop 09/28/18 at 15:14; Status DC Vancomycin HCl 500 mg/Dextrose 100 ml @ 100 mls/hr Q24H IV Last administered on 09/24/18at 03:57; Start 09/24/18 at 04:00; Stop 09/25/18 at 04:39; Status DC Vancomycin HCl (Vancomycin Trough Level) 1 each 1X ONCE MC Last administered on 09/25/18at 03:30; Start 09/25/18 at 03:30; Stop 09/25/18 at 03:31; Status DC Albuterol/ Ipratropium (Duoneb) 3 ml 1X ONCE NEB Last administered on at 04:20; Start 09/23/18 at 04:30; Stop 09/23/18 at 04:31; Status DC Pantoprazole Sodium (PROTONIX VIAL for IV PUSH) 40 mg DAILYAC IVP Last administered on 09/27/18at 06:01; Start 09/23/18 at 07:30; Stop 09/27/18 at 12 :12; Status DC Enoxaparin Sodium (Lovenox 40mg Syringe) 40 mg Q24H SQ ; Start 09/24/18 at 08: 00; Status Cancel Oseltamivir Phosphate (Tamiflu Suspension) 75 mg BID NG ; Start 09/23/18 at 09: 00; Stop 09/23/18 at 10:25; Status DC Albuterol/ Ipratropium (Duoneb) 3 ml RTQID NEB Last administered on 09/29/18at 13:17; Start 09/23/18 at 12:00 Oseltamivir Phosphate (Tamiflu Suspension) 30 mg BID NG Last administered on at 21:06; Start 09/23/18 at 10:30; Stop 09/26/18 at 09:09; Status DC Vancomycin HCl 500 mg/Dextrose 100 ml @ 100 mls/hr Q24H IV ; Start 09/25/18 at 04:45; Stop 09/25/18 at 04:46; Status DC Vancomycin HCl 500 mg/Dextrose 100 ml @ 100 mls/hr Q18H IV Last administered on 09/25/18at 04:57; Start 09/25/18 at 05:00; Stop 09/25/18 at 07:38; Status DC Vancomycin HCl (Vancomycin Trough Level) 1 each 1X ONCE MC ; Start 09/25/18 at 22:30; Stop 09/25/18 at 22:31; Status Cancel Amino Acids/ Glycerin/ Electrolytes 1,000 ml @ 60 mls/hr [id number] IV Last administered on 09/26/18at 03:25; Start 09/25/18 at 11:00; Stop 09/26/18 at 14 :05; Status DC Lidocaine (Lidoderm) 1 patch PRN DAILY PRN TD PAIN Last administered on at 23:24; Start 09/25/18 at 23:00 Acetaminophen (Tylenol) 500 mg PRN Q6HRS PRN PO MILD PAIN / TEMP Last administered on 09/28/18at 20:27; Start 09/26/18 at 08:45 Acetaminophen/ Codeine Phosphate (Tylenol #3) 1 tab PRN Q6HRS PRN PO MODERATE PAIN; Start 09/26/18 at 08:45 Ibuprofen (Motrin) 400 mg PRN Q6HRS PRN PO INFLAMMATION; Start 09/26/18 at 08: 45 Metoprolol Succinate (Toprol Xl) 25 mg DAILY PO Last administered on at 09:18; Start 09/26/18 at 15:00 Non-Formulary Medication (Albuterol Sulfate (Proair Hfa Inhaler)) 2 puff PRN Q4- 6HRS PRN IH SHORTNESS OF BREATH; Start 09/26/18 at 14:00; Stop 09/26/18 at 14: 13; Status DC Citalopram Hydrobromide (CeleXA) 10 mg DAILY PO Last administered on at 09:18; Start 09/26/18 at 15:00 Mirtazapine (Remeron) 15 mg QHS PO Last administered on 09/28/18at 20:27; Start 09/26/18 at 21:00 Non-Formulary Medication (Omeprazole ) 1 cap DAILY PO ; Start 09/27/18 at 09:00 ; Stop 09/27/18 at 09:00; Status DC Non-Formulary Medication (Omeprazole ) 40 mg DAILY PO ; Start 09/27/18 at 09:00 ; Stop 09/27/18 at 09:00; Status DC Albuterol Sulfate (Ventolin Neb Soln) 2.5 mg PRN Q4HRS PRN NEB SHORTNESS OF BREATH; Start 09/26/18 at 14:15 Albuterol/ Ipratropium (Duoneb) 3 ml STK-MED ONCE .ROUTE ; Start 09/27/18 at 06 :53; Stop 09/27/18 at 06:54; Status DC Pantoprazole Sodium (Protonix) 40 mg DAILYAC PO Last administered on at 07:47; Start 09/28/18 at 07:30 Enoxaparin Sodium (Lovenox 40mg Syringe) 40 mg QHS SQ Last administered on at 20:29; Start 09/27/18 at 16:15 Lactobacillus Rhamnosus (Culturelle) 1 cap BID PO Last administered on at 09:18; Start 09/27/18 at 21:00 Potassium Chloride (Klor-Con) 40 meq 1X ONCE PO Last administered on at 11:36; Start 09/28/18 at 11:15; Stop 09/28/18 at 11:16; Status DC Amoxicillin/ Clavulanate Potassium (Augmentin 875/ 125mg) 1 tab BID PO Last administered on 09/29/18at 09:17; Start 09/28/18 at 21:00 Active Scripts Active Reported Mirtazapine 15 Mg Tablet 15 Mg PO DAILY Escitalopram Oxalate 5 Mg Tablet 5 Mg PO DAILY Metoprolol Succinate ( Xl ) (Metoprolol Succinate) 25 Mg Tab.er.24h 1 Tab PO DAILY Omeprazole 40 Mg Capsule.dr 40 Mg PO DAILY Albuterol Sulfate Neb Soln (Albuterol Sulfate) 2.5 Mg/3 Ml Vial.neb 2.5 Mg NEB PRN Proair Hfa Inhaler (Albuterol Sulfate) 8.5 Gm Hfa.aer.ad 2 Puff IH PRN Q4-6HRS PRN Omeprazole 20 Mg Capsule.dr 1 Cap PO DAILY Vital Signs Vital Signs Date Time Temp Pulse Resp B/P (MAP) Pulse Ox O2 Delivery O2 Flow Rate FiO2 09/29/18 13:17 Nasal Cannula 2.0 09/29/18 11:00 98.4 91 18 102/64 (77) 96 98.4 Labs Laboratory Tests Test 09/27/18 17:14 09/28/18 04:30 Glucose (Fingerstick) 125 mg/dL (70-99) White Blood Count 5.8 x10^3/uL (4.0-11.0) Red Blood Count 3.18 x10^6/uL (3.50-5.40) Hemoglobin 9.9 g/dL (12.0-15.5) Hematocrit 30.1 % (36.0-47.0) Mean Corpuscular Volume 95 fL (79-100) Mean Corpuscular Hemoglobin 31 pg (25-35) Mean Corpuscular Hemoglobin Concent 33 g/dL (31-37) Red Cell Distribution Width 16.2 % (11.5-14.5) Platelet Count 141 x10^3/uL (140-400) Neutrophils (%) (Auto) 65 % (31-73) Lymphocytes (%) (Auto) 20 % (24-48) Monocytes (%) (Auto) 12 % (0-9) Eosinophils (%) (Auto) 3 % (0-3) Basophils (%) (Auto) 1 % (0-3) Neutrophils # (Auto) 3.8 x10^3uL (1.8-7.7) Lymphocytes # (Auto) 1.2 x10^3/uL (1.0-4.8) Monocytes # (Auto) 0.7 x10^3/uL (0.0-1.1) Eosinophils # (Auto) 0.1 x10^3/uL (0.0-0.7) Basophils # (Auto) 0.0 x10^3/uL (0.0-0.2) Sodium Level 145 mmol/L (136-145) Potassium Level 3.6 mmol/L (3.5-5.1) Chloride Level 104 mmol/L (98-107) Carbon Dioxide Level 39 mmol/L (21-32) Anion Gap 2 (6-14) Blood Urea Nitrogen 16 mg/dL (7-20) Creatinine 1.0 mg/dL (0.6-1.0) Estimated GFR (Cockcroft-Gault) 57.1 Glucose Level 117 mg/dL (70-99) Calcium Level 8.4 mg/dL (8.5-10.1) Allergies Allergies Coded Allergies Type Severity Reaction Last Updated Verified No Known Drug Allergies 02/01/15 No Disposition/Orders: D/C to Home w/ HH LES BOYD MD Sep 29, 2018 15:02
--- NOTE | 2018-09-29 15:05 | DISCH ---
DISCHARGE WITH HOME HEALTH DISCHARGE INFORMATION: Final Diagnosis: Problems Medical Problems: (1) Acute respiratory failure with hypercapnia Status: Acute (2) COPD with acute exacerbation Status: Acute Condition on Discharge: Guarded HOME HEALTH: Face to Face: I certify this patient is under my care and that I, or a nurse practitioner or physician's imaging assistant working with me, had a face to face encounter that meets the physician face to face encounter requirements with this patient on [09/29/18 ]. Medical Complications: COPD, Pneumonia Long Term For: Admin/Educate Injections, Assess Cardiopulm Status, Assess & Educate Safety, Assess/Skilled Observatio, Medication Management Physical Therapy For: Evalulation/Treatment Occupational Therapy For: Evaluation/Treatment Speech Language Pathology For: Evaluation/Treatment Home Health Aide For: Self-care DIRECTOR DIGITAL CATALOGUE For: Community Resources Pt Meets Homebound Status: Poor coordination w/ amb., Unsteady balance w/ amb, POST DISCHARGE ORDERS: Activity Instructions for Disc: Activity as tolerated DIET AFTER DISCHARGE: Cardiac CHECKS AFTER DISCHARGE: Checks after discharge: Check blood press - daily TREATMENT/EQUIPMENT ORDERS: Adaptive Equipment Issued: Front wheeled walker Discharge Respiratory Equipmen: Oxygen CERTIFICATION STATEMENT: Certification Statement: Certification Statement: Based on the above finding, I certify that this patient is confined to the home and needs intermittent [place] [facility] care, physical therapy and/or speech therapy, or continues to need occupational therapy.~ This patient is under my care, and I have initiated the establishment of the plan of care.~ This patient will be followed by myself or a community physician who will periodically review the plan of care. Home Meds Reported Medications Mirtazapine (MIRTAZAPINE) 15 Mg Tablet, 15 MG PO DAILY for DEPRESSION, TAB 09/23/18 Escitalopram Oxalate (Escitalopram Oxalate) 5 Mg Tablet, 5 MG PO DAILY for ANXIETY, TAB 09/23/18 Metoprolol Succinate (METOPROLOL SUCCINATE ( XL )) 25 Mg Tab.er.24h, 1 TAB PO DAILY for HYPERTENSION, #30 TAB 5 Refills 09/23/18 Omeprazole (OMEPRAZOLE) 40 Mg Capsule.dr, 40 MG PO DAILY for GERD, CAP 09/23/18 Albuterol Sulfate (ALBUTEROL SULFATE NEB SOLN) 2.5 Mg/3 Ml Vial.neb, 2.5 MG NEB PRN for SHORTNESS OF BREATH, EACH 0 Refills 02/01/15 Albuterol Sulfate (PROAIR HFA INHALER) 8.5 Gm Hfa.aer.ad, 2 PUFF IH PRN Q4-6HRS PRN for SHORTNESS OF BREATH, #1 INHALER 02/01/15 Omeprazole (OMEPRAZOLE) 20 Mg Capsule.dr, 1 CAP PO DAILY, #30 CAP 5 Refills 02/01/15 LES BOYD MD Sep 29, 2018 15:05
[2018-09-29] MEDS ORDERED: ACET500T68 PO (15:08)
[2018-09-29] MEDS ORDERED: LACT1CAP19 PO (15:08)
[2018-09-29] MEDS ORDERED: IPRA3AMP29 NEB (15:08)
[2018-09-29] MEDS ORDERED: AMOX1TAB11 PO (15:08)
--- NOTE | 2018-09-29 16:38 | PDOC2 ---
PALLIATIVE CARE Palliative Care Note Palliative Care Spoke with patient and brother/Paul DPOA. Reviewed medical condition. Patient wants to go home. BiPap is not covered by Insurance. SNU is not covered by Insurance. Patient lives alone but states she has friends that can help with care. Informed that she will need someone with her 06/05. No Smoking. Discussed option of Hospice. Shes want to go home and be comfortable. Understands that with hospice the goal would be to keep her home and comfortable [facility] chosen. DME: Hospital Bed, BSC, Oxygen, walker and w/c DNR/DNI form completed. Spoke with Dr. Perez. Patient will be discharged home tomorrow. Leny JOHN will contact [facility]. ARIE RUTHERFORD Sep 29, 2018 16:38
--- NOTE | 2018-09-29 17:10 | PDOC ---
PULMONARY PROGRESS NOTES Subjective extubated 09/24, required BIPAP LETHARGIC, PCO2 150, RX WITH BIPAP AGAIN, NOW MUCH IMPROVED/ FOLLOWS COMMANDS/ ON VM MUCOUS PLUG RIGHT LUNG Vitals Vital Signs Date Time Temp Pulse Resp B/P (MAP) Pulse Ox O2 Delivery O2 Flow Rate FiO2 09/29/18 16:06 96 Nasal Cannula 2.0 09/29/18 11:00 98.4 91 18 102/64 (77) 98.4 General: Alert, No acute distress Lungs: Other (decrease right lung) Cardiovascular: S1 Abdomen: Soft Extremities: No Edema Skin: Warm Labs Laboratory Tests Test 09/27/18 17:14 09/28/18 04:30 Glucose (Fingerstick) 125 mg/dL (70-99) White Blood Count 5.8 x10^3/uL (4.0-11.0) Red Blood Count 3.18 x10^6/uL (3.50-5.40) Hemoglobin 9.9 g/dL (12.0-15.5) Hematocrit 30.1 % (36.0-47.0) Mean Corpuscular Volume 95 fL (79-100) Mean Corpuscular Hemoglobin 31 pg (25-35) Mean Corpuscular Hemoglobin Concent 33 g/dL (31-37) Red Cell Distribution Width 16.2 % (11.5-14.5) Platelet Count 141 x10^3/uL (140-400) Neutrophils (%) (Auto) 65 % (31-73) Lymphocytes (%) (Auto) 20 % (24-48) Monocytes (%) (Auto) 12 % (0-9) Eosinophils (%) (Auto) 3 % (0-3) Basophils (%) (Auto) 1 % (0-3) Neutrophils # (Auto) 3.8 x10^3uL (1.8-7.7) Lymphocytes # (Auto) 1.2 x10^3/uL (1.0-4.8) Monocytes # (Auto) 0.7 x10^3/uL (0.0-1.1) Eosinophils # (Auto) 0.1 x10^3/uL (0.0-0.7) Basophils # (Auto) 0.0 x10^3/uL (0.0-0.2) Sodium Level 145 mmol/L (136-145) Potassium Level 3.6 mmol/L (3.5-5.1) Chloride Level 104 mmol/L (98-107) Carbon Dioxide Level 39 mmol/L (21-32) Anion Gap 2 (6-14) Blood Urea Nitrogen 16 mg/dL (7-20) Creatinine 1.0 mg/dL (0.6-1.0) Estimated GFR (Cockcroft-Gault) 57.1 Glucose Level 117 mg/dL (70-99) Calcium Level 8.4 mg/dL (8.5-10.1) Medications Active Scripts Medications Dose Route/Sig Max Daily Dose Days Date Category Mirtazapine 15 Mg Tablet 15 Mg PO DAILY 09/23/18 Reported Escitalopram Oxalate 5 Mg Tablet 5 Mg PO DAILY 09/23/18 Reported Metoprolol Succinate ( Xl ) (Metoprolol Succinate) 25 Mg Tab.er.24h 1 Tab PO DAILY 09/23/18 Reported Omeprazole 40 Mg Capsule.dr 40 Mg PO DAILY 09/23/18 Reported Albuterol Sulfate Neb Soln (Albuterol Sulfate) 2.5 Mg/3 Ml Vial.neb 2.5 Mg NEB PRN 02/01/15 Reported Proair Hfa Inhaler (Albuterol Sulfate) 8.5 Gm Hfa.aer.ad 2 Puff IH PRN Q4-6HRS PRN 02/01/15 Reported Omeprazole 20 Mg Capsule. 1 Cap PO DAILY 02/01/15 Reported Comments CXR 09/26 persistent right lower lobe collapse Impression . 1. Jvjft-da-[id number] hypercapnic respiratory failure secondary to acute exacerbation of chronic obstructive pulmonary disease, toxic encephalopathy related to severe hypercarbia and likely a lower respiratory tract infection. extubated 09/24 . Required BIPAP post extubation 2. High-grade fever POA. Influenza screen negative. No definite consolidation on initial chest x-ray, but likely acute bronchitis, but we will look for other sources of infection as well. 3. Suspect underlying severe chronic obstructive pulmonary disease. 4. Lactic acidosis related to early sepsis, 5. Hypotension, probably related to dehydration and post-intubation. Responded to IV fluids. 6. Mucous plug right lung Plan . HOME WITH HOSPICE IN AM D/W PAT AND WEB PRESS OPERATOR ASSISTANT LARS CRANDALL MD Sep 29, 2018 17:10
[2018-09-29 19:00] VITALS: BP 105/68
[2018-09-29] MEDS: MIRTAZAPINE 15 MG TABLET PO SCH (22:06)
[2018-09-29] MEDS: ENOXAPARIN 40 MG/0.4 ML SYRINGE. SQ SCH (22:06)
[2018-09-29 23:00] VITALS: BP 110/70
[2018-09-30 03:00] VITALS: BP 109/69
[2018-09-30 07:00] VITALS: BP 97/68
[2018-09-30] MEDS: PANTOPRAZOLE 40 MG TABLET.DR. PO SCH (08:09)
[2018-09-30] MEDS: CITALOPRAM 10 MG TABLET. PO SCH (08:09)
[2018-09-30] MEDS: LACTOBACILLUS RHAMNOSUS GG 1 CAPSULE. PO SCH (08:09)
[2018-09-30] MEDS: AMOXICILLIN/K CLAV 875/125MG TABLET. PO SCH (08:09)
[2018-09-30] MEDS: IPRATRPIUM/ALBUTEROL 0.5/2.5MG 3 ML NEBU. NEB SCH ×2 (08:55→13:00)
[2018-09-30] MEDS: METOPROLOL SUCC 24HR ER 25 MG TAB.ER.24H. PO SCH (09:00)
--- NOTE | 2018-09-30 09:42 | PDOC ---
PULMONARY PROGRESS NOTES Subjective extubated 09/24, required BIPAP LETHARGIC, PCO2 150, RX WITH BIPAP AGAIN, NOW MUCH IMPROVED/ FOLLOWS COMMANDS/ ON VM MUCOUS PLUG RIGHT LUNG Vitals Vital Signs Date Time Temp Pulse Resp B/P (MAP) Pulse Ox O2 Delivery O2 Flow Rate FiO2 09/30/18 08:56 Nasal Cannula 2.0 09/30/18 07:00 98.0 96 18 97/68 (78) 90 98.0 General: Alert, No acute distress Lungs: Other (decrease right lung) Cardiovascular: S1 Abdomen: Soft Extremities: No Edema Skin: Warm Medications Active Scripts Medications Dose Route/Sig Max Daily Dose Days Date Category Mirtazapine 15 Mg Tablet 15 Mg PO DAILY 09/23/18 Reported Escitalopram Oxalate 5 Mg Tablet 5 Mg PO DAILY 09/23/18 Reported Metoprolol Succinate ( Xl ) (Metoprolol Succinate) 25 Mg Tab.er.24h 1 Tab PO DAILY 09/23/18 Reported Omeprazole 40 Mg Capsule. 40 Mg PO DAILY 09/23/18 Reported Albuterol Sulfate Neb Soln (Albuterol Sulfate) 2.5 Mg/3 Ml Vial.neb 2.5 Mg NEB PRN 02/01/15 Reported Proair Hfa Inhaler (Albuterol Sulfate) 8.5 Gm Hfa.aer.ad 2 Puff IH PRN Q4-6HRS PRN 02/01/15 Reported Omeprazole 20 Mg Capsule. 1 Cap PO DAILY 02/01/15 Reported Comments CXR 09/26 persistent right lower lobe collapse Impression . 1. [id number]-[id number]-[id number] hypercapnic respiratory failure secondary to acute exacerbation of chronic obstructive pulmonary disease, toxic encephalopathy related to severe hypercarbia and likely a lower respiratory tract infection. extubated 09/24 . Required BIPAP post extubation 2. High-grade fever POA. Influenza screen negative. No definite consolidation on initial chest x-ray, but likely acute bronchitis, but we will look for other sources of infection as well. 3. Suspect underlying severe chronic obstructive pulmonary disease. 4. Lactic acidosis related to early sepsis, 5. Hypotension, probably related to dehydration and post-intubation. Responded to IV fluids. 6. Mucous plug right lung Plan . HOME WITH HOSPICE IN AM D/W PAT AND MEDICAL SCIENTIST LARS CRANDALL MD Sep 30, 2018 09:42
--- NOTE | 2018-09-30 10:24 | PDOC ---
PROGRESS NOTES Chief Complaint Chief Complaint Severe hypercapnic/hypoxic respiratory failure, intubated for C02 (>200s) EXTBATED 09/24/18 Heavy smoker Undernourished, cachexia BMI 13 Low grade Temperatures, sepsis with no organ dysfunction HTN NEEDS BIPAP AT NIGHT, WITH ALL SLEEP History of Present Illness History of Present Illness Extubated 09/24/18 Needed BiPAP at night Now ABGs much better Feels weak, dry lips- so thirsty,eats fine pt lives alone. She wishes to leave, still on iv antibiotics, radford in place, needed full assist with walker to get to bathroom for BM today. CXR today - Improved aeration of the right lung base with small residual pleural effusion and adjacent patchy airspace disease. Plan: BiPAP at night Cont metoprolol if BP >100 fu with pulm, on zosyn PTOT, Recommend SNF SW consult PAT Consulted DNR hospice placement home hospice today Vitals Vitals Vital Signs Date Time Temp Pulse Resp B/P (MAP) Pulse Ox O2 Delivery O2 Flow Rate FiO2 09/30/18 08:56 Nasal Cannula 2.0 09/30/18 07:00 98.0 96 18 97/68 (78) 90 98.0 Physical Exam Physical Exam GENERAL: More alert, conversant - sleeping initially HEENT: Oral cavity clear NECK: Supple. LUNGS: Decreased breath sounds, nonlabored HEART: S1, S2 ABDOMEN: Soft, nontender : Radford EXTREMITIES: No edema, no cyanosis, no clubbing. NEUROLOGIC: Alert, oriented, DERMATOLOGIC: Warm, dry, no generalized rash. PIV General: Alert, Oriented X3, Cooperative, No acute distress, mild distress, Other (undernourished, minimal subcutaneous tissue, BMI of 13) Heart: Regular rate, No murmurs Lungs: Other (decrease right lung) Abdomen: Normal bowel sounds, Soft, No tenderness, No hepatosplenomegaly, No masses Extremities: No clubbing, No cyanosis, No edema, Normal pulses, No tenderness/ swelling Skin: No rashes, No breakdown, No significant lesion Assessment and Plan Assessmemt and Plan Problems Medical Problems: (1) Acute respiratory failure with hypercapnia Status: Acute (2) COPD with acute exacerbation Status: Acute Comment Review of Relevant I have reviewed the following items alexsander (where applicable) has been applied. Labs Microbiology 09/23/18 Blood Culture - Final, Complete NO GROWTH AFTER 5 DAYS Medications Current Medications Methylprednisolone Sodium Succinate (SOLU-Medrol 125MG VIAL) 125 mg 1X ONCE IV Last administered on 09/22/18at 21:38; Start 09/22/18 at 22:00; Stop at 22:01; Status DC Albuterol Sulfate (Ventolin Neb Soln) 10 mg 1X ONCE CONT NEB Last administered on 09/22/18at 21:36; Start 09/22/18 at 22:00; Stop 09/22/18 at 22 :01; Status DC Ipratropium Macdoel (Atrovent) 0.5 mg 1X ONCE NEB Last administered on at 21:36; Start 09/22/18 at 22:00; Stop 09/22/18 at 22:01; Status DC Lorazepam (Ativan) 2 mg 1X ONCE IV Last administered on 09/22/18at 21:38; Start 09/22/18 at 22:00; Stop 09/22/18 at 22:01; Status DC Propofol 50 ml @ As Directed STK-MED ONCE IV ; Start 09/22/18 at 22:01; Stop 09/22/18 at 22:03; Status DC Etomidate (Amidate) 20 mg STK-MED ONCE IV ; Start 09/22/18 at 22:07; Stop 07/31 at 22:08; Status DC Vecuronium Macdoel (Norcuron Bolus) 10 mg STK-MED ONCE IV ; Start 09/22/18 at 22:07; Stop 09/22/18 at 22:08; Status DC Etomidate (Amidate) 20 mg 1X ONCE IV Last administered on 09/22/18at 22:05; Start 09/22/18 at 22:45; Stop 09/22/18 at 22:46; Status DC Vecuronium Macdoel (Norcuron Bolus) 10 mg 1X ONCE IV Last administered on 07/31at 22:05; Start 09/22/18 at 22:45; Stop 09/22/18 at 22:46; Status DC Propofol 100 ml @ 0 mls/hr CONT PRN IV SEE PROTOCOL Last administered on at 22:10; Start 09/22/18 at 22:45; Stop 09/25/18 at 10:11; Status DC Sodium Chloride 1,000 ml @ 1,000 mls/hr 1X ONCE IV Last administered on 09/23at 01:38; Start 09/23/18 at 01:30; Stop 09/23/18 at 02:29; Status DC Sodium Chloride 1,000 ml @ 1,000 mls/hr 1X ONCE IV Last administered on 09/23at 02:08; Start 09/23/18 at 01:30; Stop 09/23/18 at 02:29; Status DC Sodium Chloride 1,000 ml @ 100 mls/hr Q10H IV Last administered on 09/25/18at 07:52; Start 09/23/18 at 02:30; Stop 09/25/18 at 11:10; Status DC Enoxaparin Sodium (Lovenox Per Pharmacy Prophylaxis Dosing) 1 each PRN DAILY PRN MC SEE COMMENTS; Start 09/23/18 at 01:30; Stop 09/23/18 at 07:24; Status DC Midazolam HCl 100 ml @ 5 mls/hr CONT PRN IV SEE I/O RECORD Last administered on 09/23/18at 17:47; Start 09/23/18 at 01:30; Stop 09/25/18 at 10:11; Status DC Enoxaparin Sodium (Lovenox 30mg Syringe) 30 mg QHS SQ Last administered on at 20:35; Start 09/23/18 at 01:30; Stop 09/27/18 at 16:01; Status DC Sodium Chloride 250 ml @ 250 mls/hr 1X ONCE IV Last administered on at 00:30; Start 09/23/18 at 01:45; Stop 09/23/18 at 02:44; Status DC Piperacillin Sod/ Tazobactam Sod (Zosyn Per Pharmacy) 1 each PRN DAILY PRN MC SEE COMMENTS; Start 09/23/18 at 03:30; Stop 09/23/18 at 07:25; Status DC Vancomycin HCl (Vanco Per Pharmacy) 1 each PRN DAILY PRN MC SEE COMMENTS Last administered on 09/25/18at 06:12; Start 09/23/18 at 03:30; Stop 09/25/18 at 07 :38; Status DC Vancomycin HCl 1 gm/Sodium Chloride 250 ml @ 250 mls/hr 1X ONCE IV Last administered on 09/23/18at 03:41; Start 09/23/18 at 04:00; Stop 09/23/18 at 04 :59; Status DC Piperacillin Sod/ Tazobactam Sod 2.25 gm/Sodium Chloride 50 ml @ 100 mls/hr Q6HRS IV Last administered on 09/28/18at 11:39; Start 09/23/18 at 05:00; Stop 09/28/18 at 15:14; Status DC Vancomycin HCl 500 mg/Dextrose 100 ml @ 100 mls/hr Q24H IV Last administered on 09/24/18at 03:57; Start 09/24/18 at 04:00; Stop 09/25/18 at 04:39; Status DC Vancomycin HCl (Vancomycin Trough Level) 1 each 1X ONCE MC Last administered on 09/25/18at 03:30; Start 09/25/18 at 03:30; Stop 09/25/18 at 03:31; Status DC Albuterol/ Ipratropium (Duoneb) 3 ml 1X ONCE NEB Last administered on at 04:20; Start 09/23/18 at 04:30; Stop 09/23/18 at 04:31; Status DC Pantoprazole Sodium (PROTONIX VIAL for IV PUSH) 40 mg DAILYAC IVP Last administered on 09/27/18at 06:01; Start 09/23/18 at 07:30; Stop 09/27/18 at 12 :12; Status DC Enoxaparin Sodium (Lovenox 40mg Syringe) 40 mg Q24H SQ ; Start 09/24/18 at 08: 00; Status Cancel Oseltamivir Phosphate (Tamiflu Suspension) 75 mg BID NG ; Start 09/23/18 at 09: 00; Stop 09/23/18 at 10:25; Status DC Albuterol/ Ipratropium (Duoneb) 3 ml RTQID NEB Last administered on 09/30/18at 08:55; Start 09/23/18 at 12:00 Oseltamivir Phosphate (Tamiflu Suspension) 30 mg BID NG Last administered on at 21:06; Start 09/23/18 at 10:30; Stop 09/26/18 at 09:09; Status DC Vancomycin HCl 500 mg/Dextrose 100 ml @ 100 mls/hr Q24H IV ; Start 09/25/18 at 04:45; Stop 09/25/18 at 04:46; Status DC Vancomycin HCl 500 mg/Dextrose 100 ml @ 100 mls/hr Q18H IV Last administered on 09/25/18at 04:57; Start 09/25/18 at 05:00; Stop 09/25/18 at 07:38; Status DC Vancomycin HCl (Vancomycin Trough Level) 1 each 1X ONCE MC ; Start 09/25/18 at 22:30; Stop 09/25/18 at 22:31; Status Cancel Amino Acids/ Glycerin/ Electrolytes 1,000 ml @ 60 mls/hr [id number] IV Last administered on 09/26/18at 03:25; Start 09/25/18 at 11:00; Stop 09/26/18 at 14 :05; Status DC Lidocaine (Lidoderm) 1 patch PRN DAILY PRN TD PAIN Last administered on at 23:24; Start 09/25/18 at 23:00 Acetaminophen (Tylenol) 500 mg PRN Q6HRS PRN PO MILD PAIN / TEMP Last administered on 09/28/18at 20:27; Start 09/26/18 at 08:45 Acetaminophen/ Codeine Phosphate (Tylenol #3) 1 tab PRN Q6HRS PRN PO MODERATE PAIN; Start 09/26/18 at 08:45 Ibuprofen (Motrin) 400 mg PRN Q6HRS PRN PO INFLAMMATION; Start 09/26/18 at 08: 45 Metoprolol Succinate (Toprol Xl) 25 mg DAILY PO Last administered on at 09:18; Start 09/26/18 at 15:00 Non-Formulary Medication (Albuterol Sulfate (Proair Hfa Inhaler)) 2 puff PRN Q4- 6HRS PRN IH SHORTNESS OF BREATH; Start 09/26/18 at 14:00; Stop 09/26/18 at 14: 13; Status DC Citalopram Hydrobromide (CeleXA) 10 mg DAILY PO Last administered on at 08:09; Start 09/26/18 at 15:00 Mirtazapine (Remeron) 15 mg QHS PO Last administered on 09/29/18at 22:06; Start 09/26/18 at 21:00 Non-Formulary Medication (Omeprazole ) 1 cap DAILY PO ; Start 09/27/18 at 09:00 ; Stop 09/27/18 at 09:00; Status DC Non-Formulary Medication (Omeprazole ) 40 mg DAILY PO ; Start 09/27/18 at 09:00 ; Stop 09/27/18 at 09:00; Status DC Albuterol Sulfate (Ventolin Neb Soln) 2.5 mg PRN Q4HRS PRN NEB SHORTNESS OF BREATH; Start 09/26/18 at 14:15 Albuterol/ Ipratropium (Duoneb) 3 ml STK-MED ONCE .ROUTE ; Start 09/27/18 at 06 :53; Stop 09/27/18 at 06:54; Status DC Pantoprazole Sodium (Protonix) 40 mg DAILYAC PO Last administered on at 08:09; Start 09/28/18 at 07:30 Enoxaparin Sodium (Lovenox 40mg Syringe) 40 mg QHS SQ Last administered on at 22:06; Start 09/27/18 at 16:15 Lactobacillus Rhamnosus (Culturelle) 1 cap BID PO Last administered on at 08:09; Start 09/27/18 at 21:00 Potassium Chloride (Klor-Con) 40 meq 1X ONCE PO Last administered on at 11:36; Start 09/28/18 at 11:15; Stop 09/28/18 at 11:16; Status DC Amoxicillin/ Clavulanate Potassium (Augmentin 875/ 125mg) 1 tab BID PO Last administered on 09/30/18at 08:09; Start 09/28/18 at 21:00 Active Scripts Active Duoneb 0.5-3(2.5) Mg/3 Ml (Albuterol/Ipratropium) 3 Ml Ampul.neb 3 Ml NEB RTQID 30 Days Culturelle (Lactobacillus Rhamnosus Gg) 1 Each Cap.sprink 1 Cap PO BID 14 Days Acetaminophen 500 Mg Tablet 500 Mg PO PRN Q6HRS PRN 14 Days Amox Tr-K Clv 875-125 Mg Tab (Amoxicillin/Potassium Clav) 1 Each Tablet 1 Tab PO BID 10 Days Reported Mirtazapine 15 Mg Tablet 15 Mg PO DAILY Escitalopram Oxalate 5 Mg Tablet 5 Mg PO DAILY Metoprolol Succinate ( Xl ) (Metoprolol Succinate) 25 Mg Tab.er.24h 1 Tab PO DAILY Omeprazole 40 Mg Capsule.dr 40 Mg PO DAILY Albuterol Sulfate Neb Soln (Albuterol Sulfate) 2.5 Mg/3 Ml Vial.neb 2.5 Mg NEB PRN Proair Hfa Inhaler (Albuterol Sulfate) 8.5 Gm Hfa.aer.ad 2 Puff IH PRN Q4-6HRS PRN Vitals/I & O Vital Sign - Last 24 Hours 09/29/18 09/29/18 09/29/18 09/29/18 11:00 13:17 15:00 16:06 Temp 98.4 97.6 98.4 97.6 Pulse 91 94 Resp 18 18 B/P (MAP) 102/64 (77) 113/50 (71) Pulse Ox 96 97 96 O2 Delivery Nasal Cannula Nasal Cannula Nasal Cannula Nasal Cannula O2 Flow Rate 2.0 2.0 2.0 2.0 09/29/18 09/29/18 09/29/18 09/29/18 19:00 19:35 20:00 20:00 Temp 98.7 98.7 Pulse 96 Resp 20 B/P (MAP) 105/68 (80) Pulse Ox 93 97 O2 Delivery Nasal Cannula Nasal Cannula Nasal Cannula O2 Flow Rate 2.0 2.0 2.0 2.0 09/29/18 09/30/18 09/30/18 09/30/18 23:00 03:00 07:00 07:39 Temp 98.7 98.8 98.0 98.7 98.8 98.0 Pulse 89 87 96 Resp 18 18 18 B/P (MAP) 110/70 (83) 109/69 (82) 97/68 (78) Pulse Ox 93 90 90 O2 Delivery Nasal Cannula Nasal Cannula Nasal Cannula Nasal Cannula O2 Flow Rate 2.0 2.0 2.0 2.0 09/30/18 09/30/18 07:39 08:56 O2 Delivery Nasal Cannula O2 Flow Rate 2.0 2.0 Intake and Output 09/29/18 09/29/18 09/30/18 15:00 23:00 07:00 Intake Total 120 ml 240 ml 80 ml Balance 120 ml 240 ml 80 ml Nutrition Consultation Dietary Evaluation: Recommendations by RD: PPN/TPN Comments: Continue with regular diet Expected Outcomes/Goals: to meet > 75% est nutr needs via po intake Malnutrition Findings: Body Fat Depletion (Non Severe: Mod to Severe Weight Status: Emaciated LES BOYD MD Sep 30, 2018 10:24
[2018-09-30 11:00] VITALS: BP 93/58
--- NOTE | 2018-09-30 11:30 | DISCH ---
DISCHARGE DISCHARGE INFORMATION: FINAL DIAGNOSIS Problems Medical Problems: (1) Acute respiratory failure with hypercapnia Status: Acute (2) COPD with acute exacerbation Status: Acute CONDITION ON DISCHARGE: Guarded CODE STATUS: Code Status: DNR/DNI [facility]: SNF STAY <30 DAYS: No HOSPICE: HOSPICE: Yes HOSPICE EVAL & TREAT: Yes LTAC: ADMIT TO LTAC: No POST DISCHARGE ORDERS: ACTIVITY ORDERS: Activity as tolerated WEIGHT BEARING STATUS: Partial weight bearing DIET AFTER DISCHARGE: Cardiac WOUND/INCISION CARE: No wound care needed CHECKS AFTER DISCHARGE: CHECKS AFTER DISCHARGE: Check blood press - daily FOLLOW-UP: PHYSICIAN FOLLOW-UP: Dr. Ramey or Dr. Larkin (Pulmonology) as needed. ADDITIONAL FOLLOW-UP: Primary Care Physician in 1-2 weeks. TREATMENT/EQUIPMENT ORDERS: ADAPTIVE EQUIPMENT NEEDED: Front wheeled walker RESPIRATORY EQUIPMENT NEEDED: Oxygen Physical Therapy For: Evalulation/Treatment Occupational Therapy For: Evaluation/Treatment Speech Language Pathology For: Evaluation/Treatment DISCHARGE MEDICATIONS: Home Meds Active Scripts Ipratropium/Albuterol Sulfate (DUONEB 0.5-3(2.5) MG/3 ML) 3 Ml Ampul.neb, 3 ML NEB RTQID for COPD for 30 Days, #120 EACH Prov:LES BOYD MD 09/29/18 Lactobacillus Rhamnosus Gg (CULTURELLE) 1 Each Cap.sprink, 1 CAP PO BID for GI HEALTH for 14 Days, #28 CAP Prov:LES BOYD MD 09/29/18 Acetaminophen (ACETAMINOPHEN) 500 Mg Tablet, 500 MG PO PRN Q6HRS PRN for MILD PAIN / TEMP for 14 Days, #60 TAB Prov:LES BOYD MD 09/29/18 Amoxicillin/Potassium Clav (AMOX TR-K CLV 875-125 MG TAB) 1 Each Tablet, 1 TAB PO BID for PNEUMONIA for 10 Days, #20 TAB Prov:LES BOYD MD 09/29/18 Reported Medications Mirtazapine (MIRTAZAPINE) 15 Mg Tablet, 15 MG PO DAILY for DEPRESSION, TAB 09/23/18 Escitalopram Oxalate (Escitalopram Oxalate) 5 Mg Tablet, 5 MG PO DAILY for ANXIETY, TAB 09/23/18 Metoprolol Succinate (METOPROLOL SUCCINATE ( XL )) 25 Mg Tab.er.24h, 1 TAB PO DAILY for HYPERTENSION, #30 TAB 5 Refills 09/23/18 Omeprazole (OMEPRAZOLE) 40 Mg Capsule.dr, 40 MG PO DAILY for GERD, CAP 09/23/18 Albuterol Sulfate (ALBUTEROL SULFATE NEB SOLN) 2.5 Mg/3 Ml Vial.neb, 2.5 MG NEB PRN for SHORTNESS OF BREATH, EACH 0 Refills 02/01/15 Albuterol Sulfate (PROAIR HFA INHALER) 8.5 Gm Hfa.aer.ad, 2 PUFF IH PRN Q4-6HRS PRN for SHORTNESS OF BREATH, #1 INHALER 02/01/15 Discontinued Reported Medications Omeprazole (OMEPRAZOLE) 20 Mg Capsule., 1 CAP PO DAILY, #30 CAP 5 Refills 02/01/15 LES BOYD MD Sep 30, 2018 11:30
== END 2018-09-30 16:12 | disposition hospice, home (50) | DRG 871 ==
LOC: ER 20:49 → 1 WEST ICU 22:46 → 5 NORTH 09-26 15:10
PROVIDERS: ADMIT Internal Medicine; ATTEND Internal Medicine
PROC: 5A1945Z Respiratory Ventilation, 24-96 Consecutive Hours (ICD-10-PCS; principal; 2018-09-22)
PROC: 0BH17EZ Insertion of Endotracheal Airway into Trachea, Via Natural or Artificial Opening (ICD-10-PCS; 2018-09-22)
PROC: 5A09357 Assistance with Respiratory Ventilation, Less than 24 Consecutive Hours, Continuous Positive Airway Pressure (ICD-10-PCS; 2018-09-22)
PROC: 5A09357 Assistance with Respiratory Ventilation, Less than 24 Consecutive Hours, Continuous Positive Airway Pressure (ICD-10-PCS; 2018-09-24)
PROC: 5A09357 Assistance with Respiratory Ventilation, Less than 24 Consecutive Hours, Continuous Positive Airway Pressure (ICD-10-PCS; 2018-09-25)
PROC: 5A09357 Assistance with Respiratory Ventilation, Less than 24 Consecutive Hours, Continuous Positive Airway Pressure (ICD-10-PCS; 2018-09-26)
PROC: 5A09357 Assistance with Respiratory Ventilation, Less than 24 Consecutive Hours, Continuous Positive Airway Pressure (ICD-10-PCS; 2018-09-27)
PROC: 5A09357 Assistance with Respiratory Ventilation, Less than 24 Consecutive Hours, Continuous Positive Airway Pressure (ICD-10-PCS; 2018-09-28)
PROC: 5A09357 Assistance with Respiratory Ventilation, Less than 24 Consecutive Hours, Continuous Positive Airway Pressure (ICD-10-PCS; 2018-09-29)
PROC: 5A09357 Assistance with Respiratory Ventilation, Less than 24 Consecutive Hours, Continuous Positive Airway Pressure (ICD-10-PCS; 2018-09-30)
DX: A41.9 Sepsis, unspecified organism (principal); G92 Toxic encephalopathy; J96.22 Acute and chronic respiratory failure with hypercapnia; J96.21 Acute and chronic respiratory failure with hypoxia; J44.1 Chronic obstructive pulmonary disease with (acute) exacerbation; J90 Pleural effusion, not elsewhere classified; E46 Unspecified protein-calorie malnutrition; R64 Cachexia; Z68.1 Body mass index [BMI] 19.9 or less, adult; D64.9 Anemia, unspecified; D69.6 Thrombocytopenia, unspecified; F17.210 Nicotine dependence, cigarettes, uncomplicated; I10 Essential (primary) hypertension; K21.9 Gastro-esophageal reflux disease without esophagitis; X58.XXXA Exposure to other specified factors, initial encounter; F32.9 Major depressive disorder, single episode, unspecified; F41.9 Anxiety disorder, unspecified; Z51.5 Encounter for palliative care; Z66 Do not resuscitate; Y93.89 Activity, other specified; Y92.89 Other specified places as the place of occurrence of the external cause; Y99.8 Other external cause status; Z99.81 Dependence on supplemental oxygen; Z79.899 Other long term (current) drug therapy
CPT/HCPCS: 31500; 36415; 36600; 70450; 71045; 80048; 80053; 80202; 81001; 82565; 82803; 82805; 82962; 83605; 83880; 84484; 85025; 87040; 87641; 87804; 93005; 94002; 94003; 94640; 94644; 94660; 94760; 96374; 96375; C9113; J1650; J2060; J2250; J2543; J2704; J2930; J3370; J7030; J7050; J7613; J7620; J7644; 92610; 97116; 97530; 97535; 99291-25